=== PATIENT | female | born 1930 | race Caucasian/White ===

== ENCOUNTER 2017-10-11 15:54 | Inpatient (IN) | payer OTHER ==
[~2017-10-11] VITALS: Ht 157.5 cm; Wt 58.3 kg
[2017-10-11 16:00] VITALS: BP 125/66; PULSE 86; TEMP 36.6; BMI 23.7
[2017-10-11 16:20] VITALS: BP 125/66; PULSE 86; TEMP 36.6; O2SAT 92
[2017-10-11] MEDS ORDERED: NURSING VERBAL MED ORDER ONE (20:15)
[2017-10-11 20:36] LABS: BASO % 0.2 %; BASO ABS # 0.02 K/uL (0-0.2); EOS % 0.7 %; EOS ABS # 0.09 K/uL (0-0.5); HEMATOCRIT 35.6 % (37-47); HEMOGLOBIN 11.4 g/dL (12.0-16.0); IG# 0.06 K/uL (0.00-0.02); LYMPH % 9.9 %; LYMPH ABS # 1.26 K/uL (1.2-3.4); MEAN CELL VOLUME 89.2 fL (80-100); MEAN CORPUSCULAR HEMOGLOBIN 28.6 pg (25-34); MEAN PLATELET VOLUME 9.3 fL (7.4-10.4); MONO % 8.5 %; MONO ABS # 1.08 K/uL (0.11-0.59); NEUT % 80.2 %; NEUT ABS # 10.24 K/uL (1.4-6.5); PLATELET COUNT 250 K/uL (130-400); RED CELL DISTRIBUTION WIDTH CV 15.9 % (11.5-14.5); RED CELL DISTRIBUTION WIDTH SD 50.7 fL (36.4-46.3); WHITE BLOOD COUNT 12.75 K/uL (4.8-10.8)
[2017-10-11 20:47] LABS: PTT PATIENT 28.7 SECONDS (21.0-31.0)
[2017-10-11] MEDS ORDERED: BISACODYL 10 MG SUPP PR PRN (21:00)
[2017-10-11] MEDS ORDERED: MAGNESIUM HYDROXIDE SUSP 30 ML UDC PO PRN (21:00)
[2017-10-11] MEDS: APIXABAN 2.5 MG TAB PO SCH (21:00)
[2017-10-11] MEDS ORDERED: ACETAMINOPHEN 325 MG TAB PO PRN (21:00)
[2017-10-11 21:06] LABS: ALBUMIN 2.6 gm/dl (3.4-5.0); CALCIUM 9.1 mg/dl (8.5-10.1); CREATININE 0.73 mg/dl (0.60-1.20); PHOSPHORUS 2.8 mg/dl (2.5-4.9); POTASSIUM 4.2 mmol/L (3.5-5.1)
[2017-10-11] MEDS: CEFAZOLIN IV 1,000 MG in SYRINGE 0 ML IV SCH (22:06)
[2017-10-11] MEDS: OXYCODONE/ACETAMINOPHEN 5-325 TAB PO PRN (22:22)
[2017-10-11 22:50] VITALS: BP 166/98; PULSE 82; TEMP 36.9; O2SAT 97
[2017-10-12] MEDS: OXYCODONE/ACETAMINOPHEN 5-325 TAB PO PRN ×2 (01:08→13:50)
[2017-10-12 03:52] VITALS: BP 126/67; PULSE 95; O2SAT 98
[2017-10-12] MEDS ORDERED: NURSING VERBAL MED ORDER ONE (06:00)
[2017-10-12] MEDS ORDERED: SODIUM CHLORIDE 0.9% 1000ML 1,000 ML IV SCH (06:00)
[2017-10-12] MEDS: CEFAZOLIN IV 1,000 MG in SYRINGE 0 ML IV SCH ×3 (06:25→21:23)
[2017-10-12 07:46] VITALS: BP 162/68; PULSE 77; TEMP 36.9; O2SAT 96
--- NOTE | 2017-10-12 07:50 | History and Physical ---
History & Physical Date Oct 12, 2017. (Radha Mazariegos, BIENVENIDOC) Chief Complaint RLE pain/nonhealing wounds (Radha Mazariegos, JENNY) History of Present Illness The patient is a 87 year old female with hx of a fib, HTN, seen in office yesterday for RLE pain and nonhealing wounds that began just before per family. Pt very poor historian, unable to verbalize more than simple answers d/t pain and confusion secondary to pain medication. Per family, pt was living independently before Jazzy, but she complained to them of pain in RLE and a small wound. Pt also seemed somewhat confused, so they took her to local hospital. While there, she was eval for altered mental status and found to have 2 small intracranial aneurysms, so was sent to [facility]. No intervention was planned on the aneurysms and pt was sent to [facility] the first week of Sep. Pt has continually c/o pain in RLE and has stopped ambulating d/t pain. When given pain medication, pt becomes more confused. Per family, pt has had dressings on her leg every time they see her, but state that the wound appears significantly bigger and more discolored than the last time they saw it a few weeks ago. No fevers or vomiting, but pt's appetite has decreased. Unable to perform ROS d/t pt mental status. Pt appears to have been on Bactrim DS for about 1 week in early Sep, no abx presently on her NOV. X-ray imaging of R tib/fib demonstrated no abnormalities. JAVY attempted, but unable to calculate d/t minimal flow in RLE. (Radha Mazariegos, BIENVENIDOC) Vitals Vital Signs Past 12 Hours Date Time Temp Pulse Resp B/P (MAP) Pulse Ox O2 Delivery O2 Flow Rate FiO2 10/12/17 03:52 95 126/67 (86) 98 Room Air 10/12/17 01:15 Room Air 10/11/17 22:50 36.9 82 18 166/98 (120) 97 Room Air (Radha Mazariegos, PA-C) Allergies Coded Allergies: No Known Allergies (Unverified , 10/11/17) Surgical / Medical History Hx Cardiac Surgery: No Hx Abdominal Surgery: No Hx Cancer Surgery: No Hx Thoracic Surgery: No Hx Orthopedic: No Hx Urinary Tract Surgery: No HX Other Surgery: No Past Medical/Surgical History: Hypertension, Other (a fib) (Radha Mazariegos PA-C) Family History Unable to obtain (Radha Mazariegos PA-C) Social History Smoking Status: Never Smoker Hx Tobacco Use In Past Year?: No Hx Alcohol Use - Type & Amnt: No Hx Substance Use -Type & Amnt: No (Radha Mazariegos PA-C) Review of Systems Additional Comments: Unable to obtain. (Radha Mazariegos PA-C) Physical Exam Constitutional: General Apperance: well-nourished, well-developed, cachectic Level of Distress: mild distress, acutely ill, chronically ill Psychiatric: Mental Status: lethargic (mildly), agitated (d/t pain) Orientation: to place, to person, not oriented to time Memory: recent memory abnormal (pt refuses to answer) Head: normocephalic, atraumatic Eyes: EOM: EOMI ENMT: normal ENT inspection, hearing grossly normal Neck: supple, trachea midline Lungs: Respiratory effort: no dyspnea Auscultation: no rales/crackles, no rhonchi, decreased breath sounds Cardiovascular: Apical Impulse: not displaced Heart Auscultation: no rubs, no gallops, pertinent finding (irregular) Peripheral Pulses: Pulses: full and equal, in all extremities except if noted Bruits: none appreciated Carotid Pulse: normal on the left, normal on the right Brachial Pulses: normal on the left, normal on the right Radial Pulse: normal on the left, normal on the right Femoral Pulse: normal on the left, normal on the right Posterior Tibialis Pulse: decreased on the left, absent on the right Dorsalis Pedis Pulse: decreased on the left, absent on the right Abdomen: Bowel Sounds: normal Inspection & Palpation: soft, non-distended, no tenderness, guarding & rebound Musculoskeletal: normal strength (5/5 throughout), normal tone Extremities: Upper Right: no cyanosis, no edema, no varicosities Upper Left: no cyanosis, no edema, no varicosities Lower Right: ulcers (RLE mid-distal carreno with large, deep, necrotic ulceration extending nearly circumferentially, with periwound cellulitis present. TTP) Lower Left: no cyanosis, no edema, no varicosities Neurologic: Cranial Nerves: grossly intact (no focal deficits) (Radha Mazariegos, PA-C) Assessment and Plan ASSESSMENT and PLAN: RLE necrotic, infected wound Severe PAD/ SFAO After discussion with Dr Winters, pt admitted for further eval, pain control, abx, and surgical intervention this week. Will reeval with Dr Winters today. (Radha Mazariegos, PA-C) Patient was seen, examined, and chart reviewed. Agree with exam and treatment plan of the Vascular PA. (Haile Winters M.D.)
[2017-10-12] MEDS: MULTIVITAMIN TAB PO SCH (09:05)
[2017-10-12] MEDS: APIXABAN 2.5 MG TAB PO SCH ×2 (09:05→21:23)
[2017-10-12] MEDS: METOPROLOL SUCC 50MG EXT REL TAB PO SCH (09:06)
[2017-10-12] MEDS: SODIUM CHLORIDE 0.9% 1000ML 1,000 ML IV SCH (13:20)
--- NOTE | 2017-10-12 14:50 | Medical Consult ---
Consultation Date of Consultation: Oct 12, 2017. Attending Physician: Haile Winters M.D. Reason for Consultation: RLE wound, AF, HTN History of Present Illness 87 y/o F Hx chronic AF, HTN, PAD, dementia, cerebral aneurysms - presenting from the vascular surgeons office due to a nonhealing RLE wound. She had failed a course of outpt Bactrim a few weeks ago. The wound has been present for 2 months and over the past week appeared to worsen and became necrotic. Additionally, the pt has been increasingly confused, partially due to use of pain medications. She is generally uncooperative and cannot provide additional information. Per her daughter, she has exhibited memory loss and functional decline for the past year. Her decline accelerated with the onset of her infection 2 months prior. She has not been able to converse since that time and is regularly agitated. Past Medical/Surgical History 1) HTN 2) Chronic AF 3) PAD 4) 2 small cerebral aneurysms were evaluated at [facility] - no intervention is planned 5) Advanced dementia 6) Nonhealing RLE ulcer Family History Noncontributory due to pt age Social History Smoking Status: Never Smoker Allergies Coded Allergies: No Known Allergies (Unverified , 10/11/17) Current Inpatient Medications Current Inpatient Medications Medications (Trade) Dose Ordered Sig/Mesfin Route Start Time Stop Time Status Last Admin Dose Admin Apixaban (Eliquis Tab) 2.5 mg BID PO 10/11/17 21:00 11/10/17 20:59 10/12/17 09:05 2.5 MG Bisacodyl (Dulcolax Supp) 10 mg Q24H PRN [place] 10/11/17 21:00 11/10/17 20:59 Metoprolol Succinate (Toprol Xl Tab) 100 mg QAM PO 10/12/17 09:00 11/11/17 08:59 10/12/17 09:06 100 MG Magnesium Hydroxide (Milk Of Magnesia Susp) 30 ml Q24H PRN PO 10/11/17 21:00 11/10/17 20:59 Multivitamins (Multivitamin Tab) 1 tab QAM PO 10/12/17 09:00 11/11/17 08:59 10/12/17 09:05 1 TAB Acetaminophen (Tylenol Tab) 650 mg Q4H PRN PO 10/11/17 21:00 11/10/17 20:59 Oxycodone/ Acetaminophen (Percocet 5-325mg Tab) 1 tab Q4H PRN PO 10/11/17 21:00 10/25/17 20:59 10/12/17 13:50 1 TAB Cefazolin Sodium 1000 mg/Syringe 5 ml @ 1.667 mls/ min Q8H IV 10/11/17 22:00 10/21/17 21:59 10/12/17 13:24 1.667 MLS/MIN Sodium Chloride 1,000 ml @ 80 mls/hr [id number] IV 10/12/17 12:15 11/11/17 12:14 10/12/17 13:20 80 MLS/HR Review of Systems Cannot obtain Physical Exam Date Time Temp Pulse Resp B/P (MAP) Pulse Ox O2 Delivery O2 Flow Rate FiO2 10/12/17 08:10 Room Air 10/12/17 07:46 36.9 77 16 162/68 (99) 96 Room Air 10/12/17 03:52 95 126/67 (86) 98 Room Air 10/12/17 01:15 Room Air 10/11/17 22:50 36.9 82 18 166/98 (120) 97 Room Air 10/11/17 16:20 36.6 86 18 125/66 (85) 92 Room Air 10/11/17 16:00 36.6 86 18 125/66 Room Air General Appearance: + pertinent finding (Emotionally distressed, thin and confused, elderly female ) Head: normocephalic Eyes: normal inspection ENT: normal ENT inspection, pharynx normal Neck: supple, no JVD Respiratory/Chest: chest non-tender, lungs clear, normal breath sounds, + pertinent finding (limited exam due to poor effort) Cardiovascular: no edema, no murmur, + irregularly irregular Abdomen/GI: normal bowel sounds, non tender, soft Back: normal inspection, no CVA tenderness Extremities/Musculoskelatal: + pertinent finding (Large necrotic ulcer on R ant LE) Neurologic/Psych: hospital liaison II-XII nml as tested, no motor/sensory deficits, alert, oriented x 3 Skin: + pertinent finding (Ulcer s per extrem exam ) Laboratory Results Last 24 Hours Test 10/11/17 20:27 White Blood Count 12.75 K/uL Red Blood Count 3.99 M/uL Hemoglobin 11.4 g/dL Hematocrit 35.6 % Mean Corpuscular Volume 89.2 fL Mean Corpuscular Hemoglobin 28.6 pg Mean Corpuscular Hemoglobin Concent 32.0 g/dl Platelet Count 250 K/uL Mean Platelet Volume 9.3 fL Neutrophils (%) (Auto) 80.2 % Lymphocytes (%) (Auto) 9.9 % Monocytes (%) (Auto) 8.5 % Eosinophils (%) (Auto) 0.7 % Basophils (%) (Auto) 0.2 % Neutrophils # (Auto) 10.24 K/uL Lymphocytes # (Auto) 1.26 K/uL Monocytes # (Auto) 1.08 K/uL Eosinophils # (Auto) 0.09 K/uL Basophils # (Auto) 0.02 K/uL RDW Standard Deviation 50.7 fL RDW Coefficient of Variation 15.9 % Immature Granulocyte % (Auto) 0.5 % Immature Granulocyte # (Auto) 0.06 K/uL Prothrombin Time 10.7 SECONDS Prothromb Time International Ratio 1.0 Activated Partial Thromboplast Time 28.7 SECONDS Partial Thromboplastin Ratio 1.1 Sodium Level 140 mmol/L Potassium Level 4.2 mmol/L Chloride Level 107 mmol/L Carbon Dioxide Level 28 mmol/L Anion Gap 5.0 mmol/L Blood Urea Nitrogen 31 mg/dl Creatinine 0.73 mg/dl Est Creatinine Clear Calc Drug Dose 41.8 ml/min Estimated GFR () 85.2 Estimated GFR (Non- 73.5 BUN/Creatinine Ratio 41.7 Random Glucose 88 mg/dl Calcium Level 9.1 mg/dl Phosphorus Level 2.8 mg/dl Albumin 2.6 gm/dl Chemistry Specimen Hemolysis Assessment & Plan 87 y/o F Hx chronic AF, HTN, PAD, dementia, cerebral aneurysms - presenting from the vascular surgeons office due to a nonhealing RLE wound. She had failed a course of outpt Bactrim a few weeks ago. The wound has been present for 2 months and over the past week appeared to worsen and became necrotic. Additionally, the pt has been increasingly confused, partially due to use of pain medications. She is generally uncooperative and cannot provide additional information. Per her daughter, she has exhibited memory loss and functional decline for the past year. Her decline accelerated with the onset of her infection 2 months prior. She has not been able to converse since that time and is regularly agitated. 1) RLE necrotic, nonhealing ulcer. She may undergo debridement per vascular surgery. She was placed on Cefazolin and we will add Vanc pending additional culture results. 2) AF - she remains on Eliquis and Metoprolol. 3) HTN - cont Metoprolol 4) Agitation due to underlying advanced dementia - we will start her on a low dose of Olanzapine in addition to PRN low-dose Ativan. She may require a mental health consult prior to DC as her dementia is not currently being treated. 5) The medical service will follow daily Total time for this consult including review of meds, labs, imaging - discussion with pt's daughter - review of admission per vascular surgery - 35 min
[2017-10-12] MEDS ORDERED: VANCOMYCIN CONSULT ACTIVE PRN (15:15)
[2017-10-12 15:18] VITALS: BP 146/68; PULSE 74; TEMP 36.8; O2SAT 99
[2017-10-12] MEDS ORDERED: VANCOMYCIN INJ 1,250 MG in SODIUM CHLORIDE 0.9% 250ML 250 ML IV STA (15:28)
[2017-10-12] MEDS ORDERED: VANCOMYCIN INJ 1,000 MG in SODIUM CHLORIDE 0.9% 250ML 250 ML IV STA (15:31)
[2017-10-12 15:59] VITALS: Ht 157.5 cm; Wt 58.3 kg
[2017-10-12] MEDS: OLANZAPINE ZYDIS 5 MG ORALLY DIS. TAB PO SCH ×2 (16:23→21:23)
[2017-10-13] MEDS: LORAZEPAM IV PRN ×2 (00:04→17:26)
[2017-10-13] MEDS ORDERED: NURSING DECISION MEDICATION ORDER SCH (00:15)
[2017-10-13] MEDS: SODIUM CHLORIDE 0.9% 1000ML 1,000 ML IV SCH ×2 (02:48→16:27)
[2017-10-13] MEDS: CEFAZOLIN IV 1,000 MG in SYRINGE 0 ML IV SCH ×3 (06:02→22:07)
[2017-10-13 08:20] VITALS: BP 148/81; PULSE 83; TEMP 37.3; O2SAT 94
[2017-10-13 08:52] LABS: BASO % 0.2 %; BASO ABS # 0.02 K/uL (0-0.2); EOS % 0.4 %; EOS ABS # 0.05 K/uL (0-0.5); HEMATOCRIT 31.5 % (37-47); HEMOGLOBIN 10.1 g/dL (12.0-16.0); IG# 0.04 K/uL (0.00-0.02); LYMPH % 10.5 %; LYMPH ABS # 1.19 K/uL (1.2-3.4); MEAN CORPUSCULAR HEMOGLOBIN 28.5 pg (25-34); MEAN CORPUSCULAR HGB CONC 32.1 g/dl (32-36); MEAN PLATELET VOLUME 9.2 fL (7.4-10.4); MONO % 8.2 %; MONO ABS # 0.93 K/uL (0.11-0.59); NEUT % 80.3 %; NEUT ABS # 9.13 K/uL (1.4-6.5); PLATELET COUNT 221 K/uL (130-400); RED CELL DISTRIBUTION WIDTH CV 16.1 % (11.5-14.5); RED CELL DISTRIBUTION WIDTH SD 51.5 fL (36.4-46.3); WHITE BLOOD COUNT 11.36 K/uL (4.8-10.8)
[2017-10-13 09:19] LABS: ALBUMIN 2.3 gm/dl (3.4-5.0); CALCIUM 8.6 mg/dl (8.5-10.1); CREATININE 0.62 mg/dl (0.60-1.20); PHOSPHORUS 2.6 mg/dl (2.5-4.9); POTASSIUM 3.8 mmol/L (3.5-5.1)
[2017-10-13] MEDS: OXYCODONE/ACETAMINOPHEN 5-325 TAB PO PRN ×2 (11:23→20:09)
[2017-10-13] MEDS: APIXABAN 2.5 MG TAB PO SCH ×2 (11:24→20:11)
[2017-10-13] MEDS: MULTIVITAMIN TAB PO SCH (11:25)
[2017-10-13] MEDS: OLANZAPINE ZYDIS 5 MG ORALLY DIS. TAB PO SCH ×2 (11:25→20:10)
[2017-10-13] MEDS: METOPROLOL SUCC 50MG EXT REL TAB PO SCH (11:27)
--- NOTE | 2017-10-13 13:20 | Progress Note ---
Progress Note Date of Service: Oct 13, 2017. Subjective No changes Objective Vital Signs Vital Signs Past 12 Hours Date Time Temp Pulse Resp B/P (MAP) Pulse Ox O2 Delivery O2 Flow Rate FiO2 10/13/17 08:20 37.3 83 16 148/81 (103) 94 Room Air Exam No changes in leg Laboratory and Microbiology Results Past 24 Hours Test 10/13/17 08:23 Range/Units White Blood Count 11.36 4.8-10.8 K/uL Red Blood Count 3.54 4.2-5.4 M/uL Hemoglobin 10.1 12.0-16.0 g/dL Hematocrit 31.5 37-47 % Mean Corpuscular Volume 89.0 80-100 fL Mean Corpuscular Hemoglobin 28.5 25-34 pg Mean Corpuscular Hemoglobin Concent 32.1 32-36 g/dl Platelet Count 221 130-400 K/uL Mean Platelet Volume 9.2 7.4-10.4 fL Neutrophils (%) (Auto) 80.3 % Lymphocytes (%) (Auto) 10.5 % Monocytes (%) (Auto) 8.2 % Eosinophils (%) (Auto) 0.4 % Basophils (%) (Auto) 0.2 % Neutrophils # (Auto) 9.13 1.4-6.5 K/uL Lymphocytes # (Auto) 1.19 1.2-3.4 K/uL Monocytes # (Auto) 0.93 0.11-0.59 K/uL Eosinophils # (Auto) 0.05 0-0.5 K/uL Basophils # (Auto) 0.02 0-0.2 K/uL RDW Standard Deviation 51.5 36.4-46.3 fL RDW Coefficient of Variation 16.1 11.5-14.5 % Immature Granulocyte % (Auto) 0.4 % Immature Granulocyte # (Auto) 0.04 0.00-0.02 K/uL Sodium Level 140 136-145 mmol/L Potassium Level 3.8 3.5-5.1 mmol/L Chloride Level 109 98-107 mmol/L Carbon Dioxide Level 24 21-32 mmol/L Anion Gap 7.0 3-11 mmol/L Blood Urea Nitrogen 16 7-18 mg/dl Creatinine 0.62 0.60-1.20 mg/dl Est Creatinine Clear Calc Drug Dose 49.6 ml/min Estimated GFR () 93.3 Estimated GFR (Non- 80.5 BUN/Creatinine Ratio 25.3 10-20 Random Glucose 81 70-99 mg/dl Calcium Level 8.6 8.5-10.1 mg/dl Phosphorus Level 2.6 2.5-4.9 mg/dl Albumin 2.3 3.4-5.0 gm/dl Imp: Necrotic wound right leg Plan: Patient for debridement of wound in am tomorrow.
--- NOTE | 2017-10-13 14:50 | Anesthesiology Progress Note ---
Anesthesia Progress Note Date of Service Oct 13, 2017. Progress Notes Ms. Linn is scheduled for RLE I and D with Dr. Winters on 10/14/17. PMH ( found on record review) notable fro HTN, A fib, HLD, OA , anemia, dementia and known 2 small intracranial aneurysms but after evaluation at [facility] no interventions planned (unsure why). Patient poor historian so unable to obtain PSH. Labs notable for H/H of 10.1/31.5. Given patient's mental state felt it was best to have family members sign her consent. They had just left the patient and unable to obtain via phone. Will either consent them tomorrow if they are present with the patient or will try again via phone.
[2017-10-13 15:26] VITALS: BP 139/78; PULSE 73; TEMP 36.9; O2SAT 93
--- NOTE | 2017-10-13 21:07 | Progress Note ---
Subjective Date of Service: Oct 13, 2017. Subjective Pt evaluation today including: conversation w/ patient, physical exam, lab review, review of inpatient medication list Pain: no pain PO Intake: adequate Voiding: no voiding problems patient laying in bed comfortably cannot give me any meaningful responses with dementia labs reviewed, CBC and BMP stable Review of Systems cannot review due to dementia Medications Current Inpatient Medications Medications (Trade) Dose Ordered Sig/Mesfin Route Start Time Stop Time Status Last Admin Dose Admin Apixaban (Eliquis Tab) 2.5 mg BID PO 10/11/17 21:00 11/10/17 20:59 10/13/17 20:11 2.5 MG Bisacodyl (Dulcolax Supp) 10 mg Q24H PRN [place] 10/11/17 21:00 11/10/17 20:59 Metoprolol Succinate (Toprol Xl Tab) 100 mg QAM PO 10/12/17 09:00 11/11/17 08:59 10/13/17 11:27 100 MG Magnesium Hydroxide (Milk Of Magnesia Susp) 30 ml Q24H PRN PO 10/11/17 21:00 11/10/17 20:59 Multivitamins (Multivitamin Tab) 1 tab QAM PO 10/12/17 09:00 11/11/17 08:59 10/13/17 11:25 1 TAB Acetaminophen (Tylenol Tab) 650 mg Q4H PRN PO 10/11/17 21:00 11/10/17 20:59 10/12/17 16:24 650 MG Oxycodone/ Acetaminophen (Percocet 5-325mg Tab) 1 tab Q4H PRN PO 10/11/17 21:00 10/25/17 20:59 10/13/17 20:09 1 TAB Cefazolin Sodium 1000 mg/Syringe 5 ml @ 1.667 mls/ min Q8H IV 10/11/17 22:00 10/21/17 21:59 10/13/17 14:22 1.667 MLS/MIN Sodium Chloride 1,000 ml @ 80 mls/hr [id number] IV 10/12/17 12:15 11/11/17 12:14 10/13/17 16:27 80 MLS/HR Olanzapine (Zyprexa Zydis Od Tab) 1.25 mg BID PO 10/12/17 15:30 11/11/17 15:29 10/13/17 20:10 1.25 MG Lorazepam 0.25 mg/ Syringe 1 ml @ 0.5 mls/min Q8H PRN IV 10/12/17 15:15 11/11/17 15:14 10/13/17 17:26 0.5 MLS/MIN Objective Vital Signs Date Time Temp Pulse Resp B/P (MAP) Pulse Ox O2 Delivery O2 Flow Rate FiO2 10/13/17 15:26 36.9 73 18 139/78 (98) 93 Room Air 10/13/17 08:45 Room Air 10/13/17 08:20 37.3 83 16 148/81 (103) 94 Room Air 10/12/17 23:40 Room Air Physical Exam General Appearance: WD/WN, no apparent distress Neck: supple, no adenopathy, no JVD, trachea midline Respiratory/Chest: chest non-tender, lungs clear, normal breath sounds, no respiratory distress, no accessory muscle use Cardiovascular: no edema, no gallop, no JVD, no murmur, + irregularly irregular Abdomen: normal bowel sounds, non tender, soft, no organomegaly Extremities: normal range of motion, non-tender, normal inspection, no pedal edema, no calf tenderness, pelvis stable Neurologic/Psychiatric: peripheral vascular tech II-XII nml as tested, + motor weakness, + depressed affect, + disoriented Skin: + pertinent finding (chronic lower extremity wounds) Laboratory Results Last 24 Hours Test 10/13/17 08:23 White Blood Count 11.36 K/uL Red Blood Count 3.54 M/uL Hemoglobin 10.1 g/dL Hematocrit 31.5 % Mean Corpuscular Volume 89.0 fL Mean Corpuscular Hemoglobin 28.5 pg Mean Corpuscular Hemoglobin Concent 32.1 g/dl Platelet Count 221 K/uL Mean Platelet Volume 9.2 fL Neutrophils (%) (Auto) 80.3 % Lymphocytes (%) (Auto) 10.5 % Monocytes (%) (Auto) 8.2 % Eosinophils (%) (Auto) 0.4 % Basophils (%) (Auto) 0.2 % Neutrophils # (Auto) 9.13 K/uL Lymphocytes # (Auto) 1.19 K/uL Monocytes # (Auto) 0.93 K/uL Eosinophils # (Auto) 0.05 K/uL Basophils # (Auto) 0.02 K/uL RDW Standard Deviation 51.5 fL RDW Coefficient of Variation 16.1 % Immature Granulocyte % (Auto) 0.4 % Immature Granulocyte # (Auto) 0.04 K/uL Sodium Level 140 mmol/L Potassium Level 3.8 mmol/L Chloride Level 109 mmol/L Carbon Dioxide Level 24 mmol/L Anion Gap 7.0 mmol/L Blood Urea Nitrogen 16 mg/dl Creatinine 0.62 mg/dl Est Creatinine Clear Calc Drug Dose 49.6 ml/min Estimated GFR () 93.3 Estimated GFR (Non- 80.5 BUN/Creatinine Ratio 25.3 Random Glucose 81 mg/dl Calcium Level 8.6 mg/dl Phosphorus Level 2.6 mg/dl Albumin 2.3 gm/dl Assessment and Plan 87 y/o F Hx chronic AF, HTN, PAD, dementia, cerebral aneurysms - presenting from the vascular surgeons office due to a nonhealing RLE wound. She had failed a course of outpt Bactrim a few weeks ago. The wound has been present for 2 months and over the past week appeared to worsen and became necrotic. Additionally, the pt has been increasingly confused, partially due to use of pain medications. She is generally uncooperative and cannot provide additional information. Per her daughter, she has exhibited memory loss and functional decline for the past year. Her decline accelerated with the onset of her infection 2 months prior. She has not been able to converse since that time and is regularly agitated. 1) RLE necrotic, nonhealing ulcer. continue antibiotics, may require debridement, up to vascular surgery 2) AF - she remains on Eliquis and Metoprolol. heart rate controlled 3) HTN - cont Metoprolol 4) Agitation due to underlying advanced dementia - we will start her on a low dose of Olanzapine in addition to PRN low-dose Ativan CBC and BMP stable, will follow up tomorrow
[2017-10-14] VITALS (9 sets, daily range): BP systolic 133–176; BP diastolic 65–79; PULSE 67–100; TEMP 36.1–36.8; O2SAT 94–100
[2017-10-14] MEDS: SODIUM CHLORIDE 0.9% 1000ML 1,000 ML IV SCH ×2 (03:38→16:30)
[2017-10-14] MEDS: CEFAZOLIN IV 1,000 MG in SYRINGE 0 ML IV SCH ×3 (05:36→22:30)
[2017-10-14] MEDS: OXYCODONE/ACETAMINOPHEN 5-325 TAB PO PRN ×3 (05:37→15:05)
[2017-10-14] MEDS ORDERED: LIDOCAINE HCL 1% 20 ML VIAL ONE (06:56)
[2017-10-14] MEDS ORDERED: BUPIVACAINE/EPINEPHRINE 0.5% MPF 1:200,000 30 ML VIAL ONE (06:56)
[2017-10-14] MEDS ORDERED: FENTANYL CITRATE INJ 50 MCG/1 ML 2 ML VIAL ONE ×2 (07:07→09:05)
--- NOTE | 2017-10-14 08:04 | Progress Note ---
Progress Note Date of Service Oct 14, 2017. Progress Note Patient for debridement of right leg. I have discussed the risks options and benefits of the procedure with the family. The family understands the risks options and benefits and agrees to the procedure. I have examined the patient, reviewed the History & Physical and in the interval since the performance of the History & Physical I have noted the following changes of clinical significance: No changes noted
[2017-10-14] MEDS ORDERED: LIDOCAINE HCL 2% 2 ML VIAL (20MG/ML) ONE (08:37)
[2017-10-14] MEDS ORDERED: PROPOFOL IV EMULSION 10 MG/ML 20 ML VIAL IV ONE (08:37)
[2017-10-14] MEDS ORDERED: ONDANSETRON INJ 2 MG/ML 2 ML VIAL ONE (08:37)
[2017-10-14] MEDS ORDERED: THROMBIN 5000 UNITS KIT ONE (08:39)
[2017-10-14] MEDS ORDERED: THROMBIN FOR SOLN 20000 UNIT KIT ONE (08:40)
[2017-10-14] MEDS: MULTIVITAMIN TAB PO SCH ×2 (09:00→14:11)
[2017-10-14] MEDS: METOPROLOL SUCC 50MG EXT REL TAB PO SCH ×2 (09:00→14:12)
[2017-10-14] MEDS: APIXABAN 2.5 MG TAB PO SCH ×3 (09:00→19:58)
[2017-10-14] MEDS: OLANZAPINE ZYDIS 5 MG ORALLY DIS. TAB PO SCH ×2 (09:00→19:59)
--- NOTE | 2017-10-14 09:15 | [facility] Post Operative Brief Note ---
Immediate Operative Summary Operative Date Oct 14, 2017. Pre-Operative Diagnosis Right Lower Extremity Necrotic, Infected Wound Post-Operative Diagnosis Right Lower Extremity Necrotic, Infected Wound Procedure(s) Performed Right Leg Wound Debridement, Application of silver wound vac (24X12) Surgeon Dr Winters Orthopedic Rn Surgeon(s) Radha Turner PA-C Estimated Blood Loss 80cc Findings Consistent with Post-Op Diagnosis Specimens cultures Drains None Anesthesia Type General Complication(s) none Disposition Disposition: Recovery Room / PACU
[2017-10-14] MEDS ORDERED: EpHEDrine SULFATE INJ 50 MG/ML AMP IV PRN (09:30)
[2017-10-14] MEDS ORDERED: LABETALOL HCL IV 5 MG/ML 20ML IV PRN (09:30)
[2017-10-14] MEDS ORDERED: NALOXONE HCL 0.4 MG/1 ML VIAL/CARP IV PRN (09:30)
[2017-10-14] MEDS ORDERED: FENTANYL CITRATE INJ 50 MCG/1 ML 2 ML VIAL IV PRN (09:30)
[2017-10-14] MEDS ORDERED: ONDANSETRON INJ 2 MG/ML 2 ML VIAL IV PRN (09:30)
[2017-10-14] MEDS ORDERED: ATROPINE SULFATE 0.1 MG/ML 5ML SYR IV PRN (09:30)
[2017-10-14 10:08] LABS: BASO % 0.2 %; BASO ABS # 0.02 K/uL (0-0.2); EOS % 1.3 %; EOS ABS # 0.16 K/uL (0-0.5); HEMATOCRIT 32.9 % (37-47); HEMOGLOBIN 10.5 g/dL (12.0-16.0); IG# 0.04 K/uL (0.00-0.02); LYMPH % 9.6 %; LYMPH ABS # 1.18 K/uL (1.2-3.4); MEAN CELL VOLUME 90.4 fL (80-100); MEAN CORPUSCULAR HEMOGLOBIN 28.8 pg (25-34); MEAN CORPUSCULAR HGB CONC 31.9 g/dl (32-36); MEAN PLATELET VOLUME 9.3 fL (7.4-10.4); MONO % 10.4 %; MONO ABS # 1.28 K/uL (0.11-0.59); NEUT % 78.2 %; NEUT ABS # 9.57 K/uL (1.4-6.5); PLATELET COUNT 235 K/uL (130-400); RED CELL DISTRIBUTION WIDTH CV 16.2 % (11.5-14.5); RED CELL DISTRIBUTION WIDTH SD 52.8 fL (36.4-46.3); WHITE BLOOD COUNT 12.25 K/uL (4.8-10.8)
--- NOTE | 2017-10-14 10:48 | Anesthesiology Progress Note ---
Anesthesia Post Op Note Date & Time Oct 14, 2017 at 10:48 Vital Signs Pain Intensity: 0 Vital Signs Past 12 Hours Date Time Temp Pulse Resp B/P (MAP) Pulse Ox O2 Delivery O2 Flow Rate FiO2 10/14/17 10:25 36.2 76 20 144/69 97 Nasal Cannula 4 10/14/17 10:15 76 19 184/97 98 Oxymask 10 10/14/17 10:05 65 18 172/86 97 Oxymask 10 10/14/17 09:55 76 14 171/103 97 Oxymask 10 10/14/17 09:48 36.3 76 14 161/103 100 Oxymask 10 10/14/17 00:23 36.8 84 18 94 Room Air 10/13/17 23:30 Room Air Notes Mental Status: alert / awake / arousable, participated in evaluation Pt Amnestic to Procedure: Yes Nausea / Vomiting: adequately controlled Pain: adequately controlled Airway Patency, RR, SpO2: stable & adequate BP & HR: stable & adequate Hydration State: stable & adequate Anesthetic Complications: no major complications apparent
--- NOTE | 2017-10-14 12:02 | [facility] Operative Report ---
Operative Report Operative Date Oct 14, 2017. Pre-Operative Diagnosis Right Lower Extremity Necrotic, Infected Wound Post-Operative Diagnosis Right Lower Extremity Necrotic, Infected Wound Procedure(s) Performed Right Leg Wound Debridement, Application of silver wound vac (24X12) Surgeon Dr Winters [employer]ry [employer] Round Attendant Surgeon(s) Radha Turner PA-C Estimated Blood Loss 80cc Findings necrotic subcutaneous tissue and skin Specimens #1 Right leg wound for routine cultrue and sentitvity and anaerobic and aerobic Anesthesia general Complication(s) None Disposition Recovery Room / PACU Indications This is an 87-year-old female who developed on necrotic area on her right leg. It has gotten progressively worse and is in need of debridement. The family understands the risks options and benefits and agrees to go ahead with the procedure. Description of Procedure The patient was taken to the operating room and placed in the supine position. After general anesthesia was accomplished the right leg was prepped and draped in a sterile manner. Using sharp and blunt dissection the necrotic skin eschar and subcutaneous tissue was removed from the right leg. This encompassed an area of 24 x 12 cm in size. The fascia beneath was viable and bleeding was seen. Bleeding was then controlled. Once adequate hemostasis was noted the wound was covered with a silver impregnated wound VAC. The patient left the operation room in satisfactory condition and tolerated the procedure well. All needle and sponge counts were correct at the end of the procedure. Radha Mazariegos Pac assisted due to lack of resident availability and was necessary for prepping, draping, retraction, wound closure deep layers, subcutaneous tissue, and skin closure and was necessary for assisting with the case. I attest to the content of the Intraoperative Record and any orders documented therein. Any exceptions are noted below.
--- NOTE | 2017-10-14 12:32 | Progress Note ---
Progress Note Date of Service Oct 14, 2017. Progress Note I assisted Dr Winters with Sho Kongdwell's Right Leg Wound Debridement, Application of silver wound vac (24X12) on 10/14/17, d/t lack of resident availability.
--- NOTE | 2017-10-14 19:44 | Progress Note ---
Subjective Date of Service: Oct 14, 2017. Subjective Pt evaluation today including: conversation w/ patient, physical exam, review of inpatient medication list Pain: no pain PO Intake: NPO for procedure this AM Voiding: no voiding problems to OR today for debridement, wound vac placed tolerated well, no complications Hb stable at 10.5 Review of Systems cannot review due to dementia Medications Current Inpatient Medications Medications (Trade) Dose Ordered Sig/Mesfin Route Start Time Stop Time Status Last Admin Dose Admin Apixaban (Eliquis Tab) 2.5 mg BID PO 10/11/17 21:00 11/10/17 20:59 10/13/17 20:11 2.5 MG Bisacodyl (Dulcolax Supp) 10 mg Q24H PRN [place] 10/11/17 21:00 11/10/17 20:59 Metoprolol Succinate (Toprol Xl Tab) 100 mg QAM PO 10/12/17 09:00 11/11/17 08:59 10/13/17 11:27 100 MG Magnesium Hydroxide (Milk Of Magnesia Susp) 30 ml Q24H PRN PO 10/11/17 21:00 11/10/17 20:59 Multivitamins (Multivitamin Tab) 1 tab QAM PO 10/12/17 09:00 11/11/17 08:59 10/13/17 11:25 1 TAB Acetaminophen (Tylenol Tab) 650 mg Q4H PRN PO 10/11/17 21:00 11/10/17 20:59 10/12/17 16:24 650 MG Oxycodone/ Acetaminophen (Percocet 5-325mg Tab) 1 tab Q4H PRN PO 10/11/17 21:00 10/25/17 20:59 10/14/17 15:05 1 TAB Cefazolin Sodium 1000 mg/Syringe 5 ml @ 1.667 mls/ min Q8H IV 10/11/17 22:00 10/21/17 21:59 10/14/17 17:01 1.667 MLS/MIN Sodium Chloride 1,000 ml @ 80 mls/hr [id number] IV 10/12/17 12:15 11/11/17 12:14 10/14/17 03:38 80 MLS/HR Olanzapine (Zyprexa Zydis Od Tab) 1.25 mg BID PO 10/12/17 15:30 11/11/17 15:29 10/13/17 20:10 1.25 MG Lorazepam 0.25 mg/ Syringe 1 ml @ 0.5 mls/min Q8H PRN IV 10/12/17 15:15 11/11/17 15:14 10/13/17 17:26 0.5 MLS/MIN Objective Vital Signs Date Time Temp Pulse Resp B/P (MAP) Pulse Ox O2 Delivery O2 Flow Rate FiO2 10/14/17 14:56 36.6 72 16 151/79 (103) 99 Room Air 10/14/17 13:33 36.6 67 16 176/74 (108) 98 Nasal Cannula 3.0 10/14/17 12:30 36.6 71 16 145/70 (95) 100 Nasal Cannula 4.0 10/14/17 12:00 36.6 73 16 133/65 (87) 100 Nasal Cannula 3.0 10/14/17 11:30 36.6 76 16 145/73 (97) 96 Nasal Cannula 3.0 10/14/17 11:00 96 Nasal Cannula 2.0 10/14/17 11:00 Nasal Cannula 2.0 10/14/17 10:45 68 19 153/76 100 Nasal Cannula 4 10/14/17 10:35 76 18 153/76 100 Nasal Cannula 4 10/14/17 10:25 36.2 76 20 144/69 97 Nasal Cannula 4 10/14/17 10:15 76 19 184/97 98 Oxymask 10 10/14/17 10:05 65 18 172/86 97 Oxymask 10 10/14/17 09:55 76 14 171/103 97 Oxymask 10 10/14/17 09:48 36.3 76 14 161/103 100 Oxymask 10 10/14/17 00:23 36.8 84 18 94 Room Air 10/13/17 23:30 Room Air Physical Exam General Appearance: WD/WN, no apparent distress Eyes: normal inspection, EOMI, sclerae normal Neck: supple, no adenopathy, no JVD, trachea midline Respiratory/Chest: chest non-tender, lungs clear, normal breath sounds, no respiratory distress, no accessory muscle use Cardiovascular: regular rate, rhythm, no edema, no gallop, no JVD, no murmur Abdomen: normal bowel sounds, non tender, soft, no organomegaly Extremities: normal range of motion, non-tender, no pedal edema, no calf tenderness, pelvis stable, + slow capillary refill Neurologic/Psychiatric: + motor weakness, + depressed affect, + disoriented Skin: + pertinent finding (right lower extremity wound with wound vac after surgery) Laboratory Results Last 24 Hours Test 10/14/17 09:56 White Blood Count 12.25 K/uL Red Blood Count 3.64 M/uL Hemoglobin 10.5 g/dL Hematocrit 32.9 % Mean Corpuscular Volume 90.4 fL Mean Corpuscular Hemoglobin 28.8 pg Mean Corpuscular Hemoglobin Concent 31.9 g/dl Platelet Count 235 K/uL Mean Platelet Volume 9.3 fL Neutrophils (%) (Auto) 78.2 % Lymphocytes (%) (Auto) 9.6 % Monocytes (%) (Auto) 10.4 % Eosinophils (%) (Auto) 1.3 % Basophils (%) (Auto) 0.2 % Neutrophils # (Auto) 9.57 K/uL Lymphocytes # (Auto) 1.18 K/uL Monocytes # (Auto) 1.28 K/uL Eosinophils # (Auto) 0.16 K/uL Basophils # (Auto) 0.02 K/uL RDW Standard Deviation 52.8 fL RDW Coefficient of Variation 16.2 % Immature Granulocyte % (Auto) 0.3 % Immature Granulocyte # (Auto) 0.04 K/uL Assessment and Plan 87 y/o F Hx chronic AF, HTN, PAD, dementia, cerebral aneurysms - presenting from the vascular surgeons office due to a nonhealing RLE wound. She had failed a course of outpt Bactrim a few weeks ago. The wound has been present for 2 months and over the past week appeared to worsen and became necrotic. Additionally, the pt has been increasingly confused, partially due to use of pain medications. She is generally uncooperative and cannot provide additional information. Per her daughter, she has exhibited memory loss and functional decline for the past year. Her decline accelerated with the onset of her infection 2 months prior. She has not been able to converse since that time and is regularly agitated. 1) RLE necrotic, nonhealing ulcer. continue antibiotics right leg wound debridement with wound vac placed no complications management per vascular surgery 2) AF - she remains on Eliquis and Metoprolol. heart rate controlled 3) HTN - cont Metoprolol CBC and BMP stable, will follow up tomorrow
[2017-10-15] MEDS: SODIUM CHLORIDE 0.9% 1000ML 1,000 ML IV SCH ×2 (04:27→23:59)
[2017-10-15] MEDS: OXYCODONE/ACETAMINOPHEN 5-325 TAB PO PRN ×4 (04:33→21:32)
[2017-10-15 04:41] VITALS: BP 156/80; PULSE 78; O2SAT 91
[2017-10-15] MEDS: CEFAZOLIN IV 1,000 MG in SYRINGE 0 ML IV SCH ×3 (05:56→22:15)
[2017-10-15 07:26] VITALS: BP 157/77; PULSE 87; TEMP 37.1; O2SAT 96
[2017-10-15 07:42] LABS: BASO % 0.1 %; BASO ABS # 0.01 K/uL (0-0.2); EOS % 0.6 %; EOS ABS # 0.06 K/uL (0-0.5); HEMATOCRIT 29.4 % (37-47); HEMOGLOBIN 9.4 g/dL (12.0-16.0); IG# 0.04 K/uL (0.00-0.02); LYMPH % 9.6 %; LYMPH ABS # 0.96 K/uL (1.2-3.4); MEAN CELL VOLUME 89.4 fL (80-100); MEAN CORPUSCULAR HEMOGLOBIN 28.6 pg (25-34); MEAN PLATELET VOLUME 9.4 fL (7.4-10.4); MONO % 9.2 %; MONO ABS # 0.92 K/uL (0.11-0.59); NEUT % 80.1 %; NEUT ABS # 7.99 K/uL (1.4-6.5); PLATELET COUNT 202 K/uL (130-400); RED CELL DISTRIBUTION WIDTH CV 16.2 % (11.5-14.5); RED CELL DISTRIBUTION WIDTH SD 51.4 fL (36.4-46.3); WHITE BLOOD COUNT 9.98 K/uL (4.8-10.8)
[2017-10-15 08:07] LABS: CALCIUM 8.4 mg/dl (8.5-10.1); CREATININE 0.47 mg/dl (0.60-1.20); POTASSIUM 3.6 mmol/L (3.5-5.1)
[2017-10-15] MEDS: METOPROLOL SUCC 50MG EXT REL TAB PO SCH (09:26)
[2017-10-15] MEDS: OLANZAPINE ZYDIS 5 MG ORALLY DIS. TAB PO SCH ×2 (09:26→20:30)
[2017-10-15] MEDS: MULTIVITAMIN TAB PO SCH (09:26)
[2017-10-15] MEDS: APIXABAN 2.5 MG TAB PO SCH ×2 (09:27→20:30)
[2017-10-15 15:08] VITALS: BP 150/76; PULSE 67; TEMP 37; O2SAT 92
--- NOTE | 2017-10-15 15:11 | Progress Note ---
Subjective Date of Service: Oct 15, 2017. Subjective Pt evaluation today including: conversation w/ patient, physical exam, lab review, review of inpatient medication list Pain: pain in right leg PO Intake: adequate, per aide Voiding: montoya catheter in place patient will not answer questions due to dementia aide says she is in pain often eating all her meals though, drinking well Review of Systems cannot review due to dementia Medications Current Inpatient Medications Medications (Trade) Dose Ordered Sig/Mesfin Route Start Time Stop Time Status Last Admin Dose Admin Apixaban (Eliquis Tab) 2.5 mg BID PO 10/11/17 21:00 11/10/17 20:59 10/15/17 09:27 2.5 MG Bisacodyl (Dulcolax Supp) 10 mg Q24H PRN [place] 10/11/17 21:00 11/10/17 20:59 Metoprolol Succinate (Toprol Xl Tab) 100 mg QAM PO 10/12/17 09:00 11/11/17 08:59 10/15/17 09:26 100 MG Magnesium Hydroxide (Milk Of Magnesia Susp) 30 ml Q24H PRN PO 10/11/17 21:00 11/10/17 20:59 Multivitamins (Multivitamin Tab) 1 tab QAM PO 10/12/17 09:00 11/11/17 08:59 10/15/17 09:26 1 TAB Acetaminophen (Tylenol Tab) 650 mg Q4H PRN PO 10/11/17 21:00 11/10/17 20:59 10/12/17 16:24 650 MG Oxycodone/ Acetaminophen (Percocet 5-325mg Tab) 1 tab Q4H PRN PO 10/11/17 21:00 10/25/17 20:59 10/15/17 09:56 1 TAB Cefazolin Sodium 1000 mg/Syringe 5 ml @ 1.667 mls/ min Q8H IV 10/11/17 22:00 10/21/17 21:59 10/15/17 05:56 1.667 MLS/MIN Olanzapine (Zyprexa Zydis Od Tab) 1.25 mg BID PO 10/12/17 15:30 11/11/17 15:29 10/15/17 09:26 1.25 MG Lorazepam 0.25 mg/ Syringe 1 ml @ 0.5 mls/min Q8H PRN IV 10/12/17 15:15 11/11/17 15:14 10/13/17 17:26 0.5 MLS/MIN Objective Vital Signs Date Time Temp Pulse Resp B/P (MAP) Pulse Ox O2 Delivery O2 Flow Rate FiO2 10/15/17 09:56 Room Air 10/15/17 07:26 37.1 87 16 157/77 (103) 96 Room Air 10/15/17 04:41 78 15 156/80 (105) 91 Room Air 10/14/17 23:40 Room Air 10/14/17 22:19 95 Room Air 10/14/17 22:13 36.1 100 18 160/76 (104) 95 Room Air Physical Exam General Appearance: no apparent distress, + thin Eyes: normal inspection, EOMI, sclerae normal ENT: normal ENT inspection, hearing grossly normal, pharynx normal Neck: supple, no adenopathy, no JVD, trachea midline Respiratory/Chest: chest non-tender, lungs clear, normal breath sounds, no respiratory distress, no accessory muscle use Cardiovascular: regular rate, rhythm, no edema, no gallop, no JVD, no murmur Abdomen: normal bowel sounds, non tender, soft, no organomegaly Extremities: normal range of motion, non-tender, no pedal edema, pelvis stable , + slow capillary refill, + pertinent finding (right leg with wound vac) 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, + motor weakness, + depressed affect, + disoriented Laboratory Results Last 24 Hours Test 10/15/17 07:19 White Blood Count 9.98 K/uL Red Blood Count 3.29 M/uL Hemoglobin 9.4 g/dL Hematocrit 29.4 % Mean Corpuscular Volume 89.4 fL Mean Corpuscular Hemoglobin 28.6 pg Mean Corpuscular Hemoglobin Concent 32.0 g/dl Platelet Count 202 K/uL Mean Platelet Volume 9.4 fL Neutrophils (%) (Auto) 80.1 % Lymphocytes (%) (Auto) 9.6 % Monocytes (%) (Auto) 9.2 % Eosinophils (%) (Auto) 0.6 % Basophils (%) (Auto) 0.1 % Neutrophils # (Auto) 7.99 K/uL Lymphocytes # (Auto) 0.96 K/uL Monocytes # (Auto) 0.92 K/uL Eosinophils # (Auto) 0.06 K/uL Basophils # (Auto) 0.01 K/uL RDW Standard Deviation 51.4 fL RDW Coefficient of Variation 16.2 % Immature Granulocyte % (Auto) 0.4 % Immature Granulocyte # (Auto) 0.04 K/uL Sodium Level 141 mmol/L Potassium Level 3.6 mmol/L Chloride Level 110 mmol/L Carbon Dioxide Level 25 mmol/L Anion Gap 6.0 mmol/L Blood Urea Nitrogen 12 mg/dl Creatinine 0.47 mg/dl Est Creatinine Clear Calc Drug Dose 65.5 ml/min Estimated GFR () 102.2 Estimated GFR (Non- 88.2 BUN/Creatinine Ratio 25.4 Random Glucose 102 mg/dl Calcium Level 8.4 mg/dl Assessment and Plan 87 y/o F Hx chronic AF, HTN, PAD, dementia, cerebral aneurysms - presenting from the vascular surgeons office due to a nonhealing RLE wound. She had failed a course of outpt Bactrim a few weeks ago. The wound has been present for 2 months and over the past week appeared to worsen and became necrotic. Additionally, the pt has been increasingly confused, partially due to use of pain medications. She is generally uncooperative and cannot provide additional information. Per her daughter, she has exhibited memory loss and functional decline for the past year. Her decline accelerated with the onset of her infection 2 months prior. She has not been able to converse since that time and is regularly agitated. 1) RLE necrotic, nonhealing ulcer. continue antibiotics right leg wound debridement with wound vac placed on 10/14 no complications pain control per vascular surgery will stop IV fluids as she is eating and drinking well 2) AF - she remains on Eliquis and Metoprolol. heart rate controlled 3) HTN - cont Metoprolol Hb 9.4, Cr is 0.48
[2017-10-15 15:20] VITALS: O2SAT 92
[2017-10-15 23:04] VITALS: BP 129/72; PULSE 73; TEMP 37.3
[2017-10-16] MEDS: CEFAZOLIN IV 1,000 MG in SYRINGE 0 ML IV SCH ×3 (05:33→21:42)
[2017-10-16 07:46] VITALS: BP 145/65; PULSE 78; TEMP 37.4; O2SAT 92
[2017-10-16] MEDS: OLANZAPINE ZYDIS 5 MG ORALLY DIS. TAB PO SCH ×2 (08:42→20:30)
[2017-10-16] MEDS: APIXABAN 2.5 MG TAB PO SCH ×2 (08:44→20:30)
[2017-10-16] MEDS: OXYCODONE/ACETAMINOPHEN 5-325 TAB PO PRN ×2 (08:44→13:39)
[2017-10-16] MEDS: MULTIVITAMIN TAB PO SCH (08:45)
[2017-10-16] MEDS: METOPROLOL SUCC 50MG EXT REL TAB PO SCH (08:45)
[2017-10-16] MEDS: SODIUM CHLORIDE 0.9% 1000ML 1,000 ML IV SCH ×2 (12:47→23:36)
--- NOTE | 2017-10-16 14:56 | Progress Note ---
Subjective Date of Service: Oct 16, 2017. Subjective Pt evaluation today including: conversation w/ patient, physical exam, review of inpatient medication list Pain: right leg pain PO Intake: poor intake Voiding: montoya catheter in place patient angry today, spitting at nurse, refusing to eat, refusing to take medications vitals stable no labs drawn today Review of Systems cannot review due to dementia Medications Current Inpatient Medications Medications (Trade) Dose Ordered Sig/Mesfin Route Start Time Stop Time Status Last Admin Dose Admin Apixaban (Eliquis Tab) 2.5 mg BID PO 10/11/17 21:00 11/10/17 20:59 10/16/17 08:44 2.5 MG Bisacodyl (Dulcolax Supp) 10 mg Q24H PRN [place] 10/11/17 21:00 11/10/17 20:59 Metoprolol Succinate (Toprol Xl Tab) 100 mg QAM PO 10/12/17 09:00 11/11/17 08:59 10/16/17 08:45 100 MG Magnesium Hydroxide (Milk Of Magnesia Susp) 30 ml Q24H PRN PO 10/11/17 21:00 11/10/17 20:59 Multivitamins (Multivitamin Tab) 1 tab QAM PO 10/12/17 09:00 11/11/17 08:59 10/16/17 08:45 1 TAB Acetaminophen (Tylenol Tab) 650 mg Q4H PRN PO 10/11/17 21:00 11/10/17 20:59 10/12/17 16:24 650 MG Oxycodone/ Acetaminophen (Percocet 5-325mg Tab) 1 tab Q4H PRN PO 10/11/17 21:00 10/25/17 20:59 10/16/17 13:39 1 TAB Cefazolin Sodium 1000 mg/Syringe 5 ml @ 1.667 mls/ min Q8H IV 10/11/17 22:00 10/21/17 21:59 10/16/17 14:17 1.667 MLS/MIN Olanzapine (Zyprexa Zydis Od Tab) 1.25 mg BID PO 10/12/17 15:30 11/11/17 15:29 10/16/17 08:42 1.25 MG Lorazepam 0.25 mg/ Syringe 1 ml @ 0.5 mls/min Q8H PRN IV 10/12/17 15:15 11/11/17 15:14 10/13/17 17:26 0.5 MLS/MIN Sodium Chloride 1,000 ml @ 80 mls/hr [id number] IV 10/15/17 23:15 11/14/17 23:14 10/16/17 12:47 80 MLS/HR Objective Vital Signs Date Time Temp Pulse Resp B/P (MAP) Pulse Ox O2 Delivery O2 Flow Rate FiO2 10/16/17 07:46 37.4 78 17 145/65 (91) 92 Room Air 10/16/17 00:05 Room Air 10/15/17 23:04 37.3 73 16 129/72 (91) Room Air 93.0 10/15/17 15:20 92 Room Air 10/15/17 15:08 37.0 67 16 150/76 (100) 92 Room Air Physical Exam General Appearance: no apparent distress, + thin Eyes: normal inspection, EOMI, sclerae normal ENT: normal ENT inspection, hearing grossly normal, pharynx normal Respiratory/Chest: chest non-tender, lungs clear, normal breath sounds, no respiratory distress, no accessory muscle use Cardiovascular: regular rate, rhythm, no edema, no gallop, no JVD, no murmur Abdomen: normal bowel sounds, non tender, soft, no organomegaly Extremities: normal range of motion, no pedal edema, no calf tenderness, pelvis stable, + slow capillary refill, + pertinent finding (right lower leg very tender with wound vac in place) Neurologic/Psychiatric: mandrel cleaner II-XII nml as tested, + disoriented, + pertinent finding (agitated, ) Skin: + pertinent finding (chronic lower extremity wounds from poor perfusion, right lower leg with wound vac after debridement) Assessment and Plan 87 y/o F Hx chronic AF, HTN, PAD, dementia, cerebral aneurysms - presenting from the vascular surgeons office due to a nonhealing RLE wound. She had failed a course of outpt Bactrim a few weeks ago. The wound has been present for 2 months and over the past week appeared to worsen and became necrotic. Additionally, the pt has been increasingly confused, partially due to use of pain medications. She is generally uncooperative and cannot provide additional information. Per her daughter, she has exhibited memory loss and functional decline for the past year. Her decline accelerated with the onset of her infection 2 months prior. She has not been able to converse since that time and is regularly agitated. 1) RLE necrotic, nonhealing ulcer. wound culture growing staph aureus continue Cefazolin for now since she is afebrile, WBC now normal right leg wound debridement with wound vac placed on 10/14 pain control per vascular surgery need to resume IV fluids since her appetite is worse 2) AF - she remains on Eliquis and Metoprolol. heart rate controlled 3) HTN - cont Metoprolol check labs tomorrow
[2017-10-16 15:07] VITALS: BP 145/66; PULSE 92; TEMP 37.2; O2SAT 95
[2017-10-16 23:02] VITALS: BP 156/82; PULSE 92; TEMP 36.7; O2SAT 96
[2017-10-17] VITALS (7 sets, daily range): BP systolic 132–159; BP diastolic 47–79; PULSE 80–96; TEMP 36.5–37.3; O2SAT 91–100
[2017-10-17] MEDS: CEFAZOLIN IV 1,000 MG in SYRINGE 0 ML IV SCH ×3 (05:21→21:55)
[2017-10-17] MEDS ORDERED: EpHEDrine SULFATE INJ 50 MG/ML AMP IV PRN (07:00)
[2017-10-17] MEDS ORDERED: HYDROmorphone INJ 1 MG/ML SYR IV PRN (07:00)
[2017-10-17] MEDS ORDERED: ATROPINE SULFATE 0.1 MG/ML 5ML SYR IV PRN (07:00)
[2017-10-17] MEDS ORDERED: FENTANYL CITRATE INJ 50 MCG/1 ML 2 ML VIAL IV PRN (07:00)
[2017-10-17] MEDS ORDERED: ONDANSETRON INJ 2 MG/ML 2 ML VIAL IV PRN (07:00)
[2017-10-17] MEDS ORDERED: MIDAZOLAM HCL 1 MG/ML 2ML VIAL ONE (07:14)
[2017-10-17] MEDS ORDERED: FENTANYL CITRATE INJ 50 MCG/1 ML 2 ML VIAL ONE (07:14)
--- NOTE | 2017-10-17 07:35 | Anesthesiology Progress Note ---
Anesthesia Post Op Note Date & Time Oct 17, 2017 at 07:34 Vital Signs Pain Intensity: 0.0 Vital Signs Past 12 Hours Date Time Temp Pulse Resp B/P (MAP) Pulse Ox O2 Delivery O2 Flow Rate FiO2 10/17/17 07:12 36.6 89 15 155/79 (104) 96 Room Air 10/16/17 23:02 36.7 92 22 156/82 (106) 96 Room Air Notes Mental Status: see Notes Anesthetic Complications: pt sleepy and groggy. Pt will mumble to verbal stimulus. Asked bedside RN if she had any information and she stated that this was patients baseline.
--- NOTE | 2017-10-17 07:55 | Progress Note ---
Progress Note Date of Service Oct 17, 2017. Progress Note Patient for wound vac change and possible debridement if needed. I have discussed the risks options and benefits of the procedure with the family. The family understands the risks options and benefits and agrees to the procedure.
[2017-10-17] MEDS ORDERED: ONDANSETRON INJ 2 MG/ML 2 ML VIAL ONE (08:03)
[2017-10-17] MEDS ORDERED: LIDOCAINE HCL 2% 2 ML VIAL (20MG/ML) ONE (08:03)
[2017-10-17] MEDS ORDERED: PROPOFOL IV EMULSION 10 MG/ML 20 ML VIAL IV ONE (08:03)
[2017-10-17] MEDS: METOPROLOL SUCC 50MG EXT REL TAB PO SCH (09:00)
--- NOTE | 2017-10-17 09:30 | [facility] Post Operative Brief Note ---
Immediate Operative Summary Operative Date Oct 17, 2017. Pre-Operative Diagnosis Open Wound Right Leg Post-Operative Diagnosis Open Wound Right Leg Procedure(s) Performed Dressing change with 24x12 application of wound vac on right lower leg Surgeon Dr Winters Animal Science Professor Surgeon(s) Radha Mazariegos PA-C Estimated Blood Loss 0cc Findings Consistent with Post-Op Diagnosis Specimens None as per surgeon Drains None Anesthesia Type General Complication(s) none Disposition Disposition: Recovery Room / PACU
--- NOTE | 2017-10-17 10:00 | [facility] Operative Report ---
Operative Report Operative Date Oct 17, 2017. Pre-Operative Diagnosis Open Wound Right Leg Post-Operative Diagnosis Open Wound Right Leg Procedure(s) Performed Dressing change with 24x12 application of wound vac on right lower leg Surgeon Dr Winters Photo Booth Operator Surgeon(s) Radha Mazariegos PA-C Estimated Blood Loss 0cc Findings good tissue seen Specimens None as per surgeon Anesthesia general Complication(s) None Disposition Recovery Room / PACU Indications This is an 87-year-old female with a large wound of her right leg. It was debrided and covered with a wound VAC last week. She is taken to the operating room today for dressing change under anesthesia. The family understands the risks options and benefits and agrees to go ahead with this procedure. Description of Procedure The patient was taken to the operating room placed in the supine position. After general anesthesia was accomplished the wound VAC was removed to the right leg. There is granulation tissue starting to form at the base of the wounds. The wound was irrigated with saline solution. The skin was prepped. Vaseline gauze was placed over the open areas. The wound VAC was then placed over the third wounds of the right leg. Good seal was noted. The wound size remained unchanged at [id number] in size. Patient left the operating room in good condition tolerated the procedure well. Radha Mazariegos Pac assisted due to lack of resident availability and was necessary for prepping, draping, retraction, wound closure deep layers, subcutaneous tissue, and skin closure and was necessary for assisting with the case. I attest to the content of the Intraoperative Record and any orders documented therein. Any exceptions are noted below.
--- NOTE | 2017-10-17 10:26 | Anesthesiology Progress Note ---
Anesthesia Post Op Note Date & Time Oct 17, 2017 at 10:26 Vital Signs Pain Intensity: 0.0 Vital Signs Past 12 Hours Date Time Temp Pulse Resp B/P (MAP) Pulse Ox O2 Delivery O2 Flow Rate FiO2 10/17/17 09:52 98 17 149/136 100 10 10/17/17 09:50 36.5 92 16 100 Oxymask 10 10/17/17 07:20 Room Air 10/17/17 07:12 36.6 89 15 155/79 (104) 96 Room Air 10/16/17 23:02 36.7 92 22 156/82 (106) 96 Room Air Notes Mental Status: alert / awake / arousable, participated in evaluation Pt Amnestic to Procedure: Yes Nausea / Vomiting: adequately controlled Pain: adequately controlled Airway Patency, RR, SpO2: stable & adequate BP & HR: stable & adequate Hydration State: stable & adequate Anesthetic Complications: no major complications apparent
[2017-10-17] MEDS: OXYCODONE/ACETAMINOPHEN 5-325 TAB PO PRN ×3 (11:34→21:40)
[2017-10-17] MEDS: APIXABAN 2.5 MG TAB PO SCH ×2 (11:38→21:38)
[2017-10-17] MEDS: MULTIVITAMIN TAB PO SCH (11:38)
[2017-10-17] MEDS: OLANZAPINE ZYDIS 5 MG ORALLY DIS. TAB PO SCH ×2 (11:39→21:39)
--- NOTE | 2017-10-17 13:00 | Hospitalist Progress Note ---
Hospitalist Progress Note Date of Service Oct 17, 2017. Subjective Pt evaluation today including: conversation w/ patient, conversation w/ family , physical exam, review of inpatient medication list Voiding: montoya catheter in place Ms. Linn is drowsy and confused, oriented to self. Daughters are bedside and state this has been her mental status since she fell in August. She is unable to give much information in a review of systems Medications Medications Administered Medications (Trade) Dose Ordered Sig/Mesfin Route Start Time Stop Time Status Last Admin Dose Admin Apixaban (Eliquis Tab) 2.5 mg BID PO 10/11/17 21:00 11/10/17 20:59 10/17/17 11:38 2.5 MG Metoprolol Succinate (Toprol Xl Tab) 100 mg QAM PO 10/12/17 09:00 11/11/17 08:59 10/16/17 08:45 100 MG Multivitamins (Multivitamin Tab) 1 tab QAM PO 10/12/17 09:00 11/11/17 08:59 10/17/17 11:38 1 TAB Acetaminophen (Tylenol Tab) 650 mg Q4H PRN PO 10/11/17 21:00 11/10/17 20:59 10/12/17 16:24 650 MG Oxycodone/ Acetaminophen (Percocet 5-325mg Tab) 1 tab Q4H PRN PO 10/11/17 21:00 10/25/17 20:59 10/17/17 11:34 1 TAB Cefazolin Sodium 1000 mg/Syringe 5 ml @ 1.667 mls/ min Q8H IV 10/11/17 22:00 10/21/17 21:59 10/17/17 05:21 1.667 MLS/MIN Sodium Chloride 1,000 ml @ 500 mls/hr Q2H IV 10/12/17 06:00 10/12/17 07:59 DC 10/12/17 06:25 500 MLS/HR Sodium Chloride 1,000 ml @ 80 mls/hr [id number] IV 10/12/17 12:15 10/15/17 11:34 DC 10/15/17 04:27 80 MLS/HR Olanzapine (Zyprexa Zydis Od Tab) 1.25 mg BID PO 10/12/17 15:30 2/23/18 15:29 10/17/17 11:39 1.25 MG Lorazepam 0.25 mg/ Syringe 1 ml @ 0.5 mls/min Q8H PRN IV 10/12/17 15:15 11/11/17 15:14 10/13/17 17:26 0.5 MLS/MIN Vancomycin HCl 1000 mg/Sodium Chloride 270 ml @ 125 mls/hr NOW STAT IV 10/12/17 15:31 10/12/17 17:40 DC 10/12/17 16:23 125 MLS/HR Thrombin (Recothrom Kit) 20,000 units STK-MED ONCE .ROUTE 10/14/17 08:40 10/14/17 08:41 DC 10/14/17 08:56 20,000 UNITS Labetalol HCl (Normodyne IV) 5 mg Q5M PRN IV 10/14/17 09:30 10/14/17 14:00 DC 10/14/17 10:18 5 MG Sodium Chloride 1,000 ml @ 80 mls/hr [id number] IV 10/15/17 23:15 11/14/17 23:14 10/16/17 23:36 80 MLS/HR Fentanyl Citrate (Fentanyl Inj) 25 mcg Q5M PRN IV 10/17/17 07:00 10/17/17 12:00 DC 10/17/17 10:07 25 MCG Objective Vital Signs Date Time Temp Pulse Resp B/P (MAP) Pulse Ox O2 Delivery O2 Flow Rate FiO2 10/17/17 11:43 95 16 155/77 (103) 100 3.0 10/17/17 11:12 153/47 (82) 10/17/17 10:36 150/66 10/17/17 10:35 97 21 99 10/17/17 10:35 93 21 10/17/17 10:35 36.6 94 20 150/66 98 Nasal Cannula 2 10/17/17 10:30 86 14 175/88 100 10/17/17 10:30 96 14 175/88 99 Nasal Cannula 2 10/17/17 10:30 92 14 10/17/17 10:26 146/109 10/17/17 10:25 92 18 100 10/17/17 10:25 96 18 10/17/17 10:22 161/82 10/17/17 10:21 165/113 10/17/17 10:20 92 17 10/17/17 10:20 94 17 100 10/17/17 10:16 159/108 10/17/17 10:15 95 22 97 10/17/17 10:15 94 22 10/17/17 10:10 94 16 141/94 100 10/17/17 10:10 93 16 10/17/17 10:06 125/68 10/17/17 10:05 92 15 10/17/17 10:05 91 15 100 10/17/17 10:00 96 23 10/17/17 10:00 96 23 152/85 100 10/17/17 09:56 142/67 10/17/17 09:55 93 22 10/17/17 09:55 89 22 100 10/17/17 09:54 114/99 10/17/17 09:52 98 17 149/136 100 10 10/17/17 09:52 149/136 10/17/17 09:50 92 25 10/17/17 09:50 96 25 100 10/17/17 09:50 36.5 92 16 100 Oxymask 10 10/17/17 07:20 Room Air 10/17/17 07:12 36.6 89 15 155/79 (104) 96 Room Air 10/16/17 23:02 36.7 92 22 156/82 (106) 96 Room Air 10/16/17 19:25 Room Air 10/16/17 15:07 37.2 92 18 145/66 (92) 95 Room Air Physical Exam Notes: General: no distress Eyes: normal inspection, PERLL Respiratory: chest non tender, clear to auscultation, normal breath sounds, no respiratory distress, no accessory muscle use Cardiac: regular rate and rhythm, no rub or gallop, no murmur, no edema, no jvd GI/: active bowel sounds, no abd pain or tenderness, soft, non distended Extremities: normal range of motion, generalized weakness, non tender Neuro/Psych: alert and oriented x 1, normal mood and affect Skin: normal color, dry Assessment and Plan 87 y/o F Hx chronic AF, HTN, PAD, dementia, cerebral aneurysms - presenting from the vascular surgeons office due to a nonhealing RLE wound. She had failed a course of outpt Bactrim a few weeks ago. The wound has been present for 2 months and over the past week appeared to worsen and became necrotic. Additionally, the pt has been increasingly confused, partially due to use of pain medications. She is generally uncooperative and cannot provide additional information. Per her daughter, she has exhibited memory loss and functional decline for the past year. Her decline accelerated with the onset of her infection 2 months prior. She has not been able to converse since that time and is regularly agitated. RLE necrotic, nonhealing ulcer. wound culture growing staph aureus - awaiting sensitivities continue Cefazolin for now since she is afebrile, WBC now normal right leg wound debridement with wound vac placed on 10/14, 10/17 dressing change in OR with 24x12 application of wound vac on right lower leg pain control per vascular surgery Continue gentle hydration due to low po intake AF - continue Eliquis and Metoprolol. heart rate 80s and 90s HTN - cont Metoprolol Discussed consulting Palliative care with daughters. They are very concerned with keeping their mother comfortable but do not have clear goals of care. Spent time educating role of palliative care. They will discuss with their brother and let us know tomorrow if they are interested in meeting with them.
[2017-10-17 13:25] LABS: BASO % 0.1 %; BASO ABS # 0.01 K/uL (0-0.2); EOS % 0.2 %; EOS ABS # 0.02 K/uL (0-0.5); HEMOGLOBIN 9.6 g/dL (12.0-16.0); IG# 0.04 K/uL (0.00-0.02); LYMPH % 6.5 %; LYMPH ABS # 0.83 K/uL (1.2-3.4); MEAN CELL VOLUME 90.4 fL (80-100); MEAN CORPUSCULAR HEMOGLOBIN 28.9 pg (25-34); MEAN PLATELET VOLUME 9.3 fL (7.4-10.4); MONO % 8.5 %; MONO ABS # 1.09 K/uL (0.11-0.59); NEUT % 84.4 %; NEUT ABS # 10.86 K/uL (1.4-6.5); PLATELET COUNT 209 K/uL (130-400); RED CELL DISTRIBUTION WIDTH CV 16.3 % (11.5-14.5); RED CELL DISTRIBUTION WIDTH SD 53.4 fL (36.4-46.3); WHITE BLOOD COUNT 12.85 K/uL (4.8-10.8)
[2017-10-17 13:55] LABS: CALCIUM 8.6 mg/dl (8.5-10.1); CREATININE 0.48 mg/dl (0.60-1.20); POTASSIUM 3.2 mmol/L (3.5-5.1)
[2017-10-17] MEDS ORDERED: POTASSIUM CHLORIDE 10 MEQ TABCR PO ONE (15:30)
[2017-10-17] MEDS: SODIUM CHLORIDE 0.9% 1000ML 1,000 ML IV SCH (17:09)
[2017-10-18] MEDS: SODIUM CHLORIDE 0.9% 1000ML 1,000 ML IV SCH ×2 (01:15→23:48)
[2017-10-18 03:08] VITALS: BP 132/92; PULSE 92; TEMP 36.8; O2SAT 95
[2017-10-18] MEDS: OXYCODONE/ACETAMINOPHEN 5-325 TAB PO PRN ×2 (03:21→23:52)
[2017-10-18] MEDS ORDERED: TRAMADOL HCL 50 MG TAB PO ONE (05:30)
[2017-10-18] MEDS: CEFAZOLIN IV 1,000 MG in SYRINGE 0 ML IV SCH (05:32)
[2017-10-18 07:27] VITALS: BP 150/85; PULSE 98; TEMP 37.3; O2SAT 96
[2017-10-18] MEDS ORDERED: VANCOMYCIN CONSULT ACTIVE PRN (07:40)
[2017-10-18] MEDS ORDERED: VANCOMYCIN INJ 1,500 MG in SODIUM CHLORIDE 0.9% 500ML 500 ML IV ONE (08:00)
[2017-10-18] MEDS: OLANZAPINE ZYDIS 5 MG ORALLY DIS. TAB PO SCH ×2 (08:49→21:09)
[2017-10-18] MEDS ORDERED: HYDROmorphone INJ 0.5 MG/0.5 ML SYR IV STA (09:24)
[2017-10-18] MEDS ORDERED: HYDROmorphone INJ 0.5 MG/0.5 ML SYR IV PRN (09:30)
[2017-10-18] MEDS ORDERED: APIXABAN 2.5 MG TAB PO ONE (09:30)
--- NOTE | 2017-10-18 09:35 | Hospitalist Progress Note ---
Hospitalist Progress Note Date of Service Oct 18, 2017. Subjective Pt evaluation today including: conversation w/ patient, physical exam, chart review, lab review, conversation w/ regulatory consultant Voiding: montoya catheter in place Patient is confused and and in pain, unable to give ROS. States "I want to ". Medications Medications Administered Medications (Trade) Dose Ordered Sig/Mesfin Route Start Time Stop Time Status Last Admin Dose Admin Apixaban (Eliquis Tab) 2.5 mg BID PO 10/11/17 21:00 10/18/17 07:25 DC 10/17/17 21:38 2.5 MG Metoprolol Succinate (Toprol Xl Tab) 100 mg QAM PO 10/12/17 09:00 10/18/17 07:25 DC 10/16/17 08:45 100 MG Multivitamins (Multivitamin Tab) 1 tab QAM PO 10/12/17 09:00 10/18/17 07:25 DC 10/17/17 11:38 1 TAB Acetaminophen (Tylenol Tab) 650 mg Q4H PRN PO 10/11/17 21:00 10/18/17 07:25 DC 10/12/17 16:24 650 MG Oxycodone/ Acetaminophen (Percocet 5-325mg Tab) 1 tab Q4H PRN PO 10/11/17 21:00 10/18/17 07:25 DC 10/18/17 03:21 1 TAB Cefazolin Sodium 1000 mg/Syringe 5 ml @ 1.667 mls/ min Q8H IV 10/11/17 22:00 10/18/17 07:25 DC 10/18/17 05:32 1.667 MLS/MIN Sodium Chloride 1,000 ml @ 500 mls/hr Q2H IV 10/12/17 06:00 10/12/17 07:59 DC 10/12/17 06:25 500 MLS/HR Sodium Chloride 1,000 ml @ 80 mls/hr [id number] IV 10/12/17 12:15 10/15/17 11:34 DC 10/15/17 04:27 80 MLS/HR Olanzapine (Zyprexa Zydis Od Tab) 1.25 mg BID PO 10/12/17 15:30 11/11/17 15:29 10/18/17 08:49 1.25 MG Lorazepam 0.25 mg/ Syringe 1 ml @ 0.5 mls/min Q8H PRN IV 10/12/17 15:15 11/11/17 15:14 10/13/17 17:26 0.5 MLS/MIN Vancomycin HCl 1000 mg/Sodium Chloride 270 ml @ 125 mls/hr NOW STAT IV 10/12/17 15:31 10/12/17 17:40 DC 10/12/17 16:23 125 MLS/HR Thrombin (Recothrom Kit) 20,000 units STK-MED ONCE .ROUTE 10/14/17 08:40 10/14/17 08:41 DC 10/14/17 08:56 20,000 UNITS Labetalol HCl (Normodyne IV) 5 mg Q5M PRN IV 10/14/17 09:30 10/14/17 14:00 DC 10/14/17 10:18 5 MG Sodium Chloride 1,000 ml @ 80 mls/hr [id number] IV 10/15/17 23:15 11/14/17 23:14 10/18/17 01:15 80 MLS/HR Fentanyl Citrate (Fentanyl Inj) 25 mcg Q5M PRN IV 10/17/17 07:00 10/17/17 12:00 DC 10/17/17 10:07 25 MCG Potassium Chloride (Klor-Con M10) 40 meq NOW ONCE PO 10/17/17 15:30 10/17/17 15:31 DC 10/17/17 15:42 40 MEQ Tramadol HCl (Ultram Tab) 50 mg NOW ONCE PO 10/18/17 05:30 10/18/17 05:35 DC 10/18/17 07:37 50 MG Vancomycin HCl 1500 mg/Sodium Chloride 530 ml @ 200 mls/hr TODAY@0800 ONCE IV 10/18/17 08:00 10/18/17 10:38 10/18/17 08:48 200 MLS/HR Objective Vital Signs Date Time Temp Pulse Resp B/P (MAP) Pulse Ox O2 Delivery O2 Flow Rate FiO2 10/18/17 07:30 Room Air 10/18/17 07:27 37.3 98 18 150/85 (106) 96 Room Air 10/18/17 03:08 36.8 92 17 132/92 (105) 95 Room Air 10/18/17 00:00 Room Air 10/17/17 23:12 37.3 80 16 137/74 (95) 92 Room Air 10/17/17 19:03 36.5 96 16 132/78 (96) 91 Room Air 10/17/17 15:43 Room Air 10/17/17 15:11 36.6 86 16 159/79 (105) 96 Room Air 10/17/17 13:42 95 16 145/68 (93) 96 Room Air 10/17/17 11:43 95 16 155/77 (103) 100 3.0 10/17/17 11:12 153/47 (82) 10/17/17 10:36 150/66 10/17/17 10:35 97 21 99 10/17/17 10:35 93 21 10/17/17 10:35 36.6 94 20 150/66 98 Nasal Cannula 2 10/17/17 10:30 86 14 175/88 100 10/17/17 10:30 96 14 175/88 99 Nasal Cannula 2 10/17/17 10:30 92 14 10/17/17 10:26 146/109 10/17/17 10:25 92 18 100 10/17/17 10:25 96 18 10/17/17 10:22 161/82 10/17/17 10:21 165/113 10/17/17 10:20 92 17 10/17/17 10:20 94 17 100 10/17/17 10:16 159/108 10/17/17 10:15 95 22 97 10/17/17 10:15 94 22 10/17/17 10:10 94 16 141/94 100 10/17/17 10:10 93 16 10/17/17 10:06 125/68 10/17/17 10:05 92 15 10/17/17 10:05 91 15 100 10/17/17 10:00 96 23 10/17/17 10:00 96 23 152/85 100 10/17/17 09:56 142/67 10/17/17 09:55 93 22 10/17/17 09:55 89 22 100 10/17/17 09:54 114/99 10/17/17 09:52 98 17 149/136 100 10 10/17/17 09:52 149/136 10/17/17 09:50 92 25 10/17/17 09:50 96 25 100 10/17/17 09:50 36.5 92 16 100 Oxymask 10 Physical Exam Notes: General: no distress Eyes: normal inspection, PERLL Respiratory: chest non tender, fine crackles bilateral bases, no respiratory distress, no accessory muscle use Cardiac: irregular rate and rhythm, no rub or gallop, no murmur, no edema, no jvd GI/: active bowel sounds, no abd pain or tenderness, soft, non distended Extremities: normal range of motion, normal strength, non tender Neuro/Psych: alert and oriented x 3, normal mood and affect Skin: normal color, dry Laboratory Results Last 24 Hours Test 10/17/17 13:09 10/18/17 09:13 White Blood Count 12.85 K/uL Red Blood Count 3.32 M/uL Hemoglobin 9.6 g/dL Hematocrit 30.0 % Mean Corpuscular Volume 90.4 fL Mean Corpuscular Hemoglobin 28.9 pg Mean Corpuscular Hemoglobin Concent 32.0 g/dl Platelet Count 209 K/uL Mean Platelet Volume 9.3 fL Neutrophils (%) (Auto) 84.4 % Lymphocytes (%) (Auto) 6.5 % Monocytes (%) (Auto) 8.5 % Eosinophils (%) (Auto) 0.2 % Basophils (%) (Auto) 0.1 % Neutrophils # (Auto) 10.86 K/uL Lymphocytes # (Auto) 0.83 K/uL Monocytes # (Auto) 1.09 K/uL Eosinophils # (Auto) 0.02 K/uL Basophils # (Auto) 0.01 K/uL RDW Standard Deviation 53.4 fL RDW Coefficient of Variation 16.3 % Immature Granulocyte % (Auto) 0.3 % Immature Granulocyte # (Auto) 0.04 K/uL Sodium Level 144 mmol/L Potassium Level 3.2 mmol/L Chloride Level 111 mmol/L Carbon Dioxide Level 22 mmol/L Anion Gap 11.0 mmol/L Blood Urea Nitrogen 16 mg/dl Creatinine 0.48 mg/dl Est Creatinine Clear Calc Drug Dose 64.1 ml/min Estimated GFR () 101.5 Estimated GFR (Non- 87.6 BUN/Creatinine Ratio 33.1 Random Glucose 86 mg/dl Calcium Level 8.6 mg/dl Magnesium Level 2.0 mg/dl Assessment and Plan 87 y/o F Hx chronic AF, HTN, PAD, dementia, cerebral aneurysms - presenting from the vascular surgeons office due to a nonhealing RLE wound. She had failed a course of outpt Bactrim a few weeks ago. The wound has been present for 2 months and over the past week appeared to worsen and became necrotic. Additionally, the pt has been increasingly confused, partially due to use of pain medications. She is generally uncooperative and cannot provide additional information. Per her daughter, she has exhibited memory loss and functional decline for the past year. Her decline accelerated with the onset of her infection 2 months prior. She has not been able to converse since that time and is regularly agitated. RLE necrotic, nonhealing ulcer. wound culture growing MRSA - Ancef changed to Vanco right leg wound debridement with wound vac placed on 10/14, 10/17 dressing change in OR with 24x12 application of wound vac on right lower leg - plan for wound vac change in OR tomorrow. pain control per vascular surgery - discussed with Bee Turner today - added orders for q3h 0.25 mg dilaudid prn Continue gentle hydration due to low po intake AF - continue Eliquis and Metoprolol. heart rate 80s and 90s HTN - cont Metoprolol Discussed consulting Palliative care with daughters yesterday. They are very concerned with keeping their mother comfortable but do not have clear goals of care. Spent time educating role of palliative care. They will discuss with their brother and let us know if they are interested in meeting with them.
[2017-10-18 09:43] LABS: CREATININE 0.52 mg/dl (0.60-1.20)
[2017-10-18] MEDS: APIXABAN 2.5 MG TAB PO SCH ×2 (10:00→21:07)
[2017-10-18] MEDS: METOPROLOL SUCC 50MG EXT REL TAB PO SCH (10:01)
[2017-10-18] MEDS: MULTIVITAMIN TAB PO SCH (10:01)
[2017-10-18 10:05] LABS: CALCIUM 8.1 mg/dl (8.5-10.1); POTASSIUM 3.8 mmol/L (3.5-5.1)
--- NOTE | 2017-10-18 11:32 | Pharmacy Progress Note ---
Pharmacy Abx Initial Consult Date of Service Oct 18, 2017. Pharmacy Dosing Scope Date of Consult: 10/18/17 Consultation requested by: Dr. Gamboa Pharmacy is consulted to initiate Vanco IV dosing therapy, order appropriate labs and adjust drug dose/frequency. Subjective The patient is a 87 year old female admitted on Oct 11, 2017 at 15:54. Objective Height (Feet): 5 Height (Inches): 2.00 Weight (Kilograms): 58.320 Vital Signs (Past 12Hrs) Vital Signs Past 12 Hours Date Time Temp Pulse Resp B/P (MAP) Pulse Ox O2 Delivery O2 Flow Rate FiO2 10/18/17 07:30 Room Air 10/18/17 07:27 37.3 98 18 150/85 (106) 96 Room Air 10/18/17 03:08 36.8 92 17 132/92 (105) 95 Room Air 10/18/17 00:00 Room Air Lab Results (24Hrs) Laboratory Tests (24 Hours) Test 10/17/17 13:09 White Blood Count 12.85 K/uL (4.8-10.8) H Red Blood Count 3.32 M/uL (4.2-5.4) L Hemoglobin 9.6 g/dL (12.0-16.0) L Hematocrit 30.0 % (37-47) L Mean Corpuscular Volume 90.4 fL (80-100) Mean Corpuscular Hemoglobin 28.9 pg (25-34) Mean Corpuscular Hemoglobin Concent 32.0 g/dl (32-36) Platelet Count 209 K/uL (130-400) Mean Platelet Volume 9.3 fL (7.4-10.4) Neutrophils (%) (Auto) 84.4 % Lymphocytes (%) (Auto) 6.5 % Monocytes (%) (Auto) 8.5 % Eosinophils (%) (Auto) 0.2 % Basophils (%) (Auto) 0.1 % Neutrophils # (Auto) 10.86 K/uL (1.4-6.5) H Lymphocytes # (Auto) 0.83 K/uL (1.2-3.4) L Monocytes # (Auto) 1.09 K/uL (0.11-0.59) H Eosinophils # (Auto) 0.02 K/uL (0-0.5) Basophils # (Auto) 0.01 K/uL (0-0.2) Micro Results Date/Time Source Procedure Growth Status 10/11/17 23:15 Nasal MRSA DNA Surveillance Screen - Final Specimen Negative for MRSA by DNA Probe Complete 10/14/17 09:17 Tissue Leg Gram Stain - Final Resulted 10/14/17 09:17 Bacterial Culture - Preliminary Staph. Aureus Mrsa Resulted Assessment & Plan Assessment Pt is an 87yo F growing MRSA in a non-healing RLE wound. Pt is experiencing leukocytosis w/ a left shift. She is afebrile. Renal fxn looks to be close to her baseline. Pt population p'kinetics: t1/2=12, ke=0.0575. Plan Vancomycin: * Vanco 1500mg(~26mg/kg) IV x1 to quickly achieve a peak of ~37mcg/mL * Then Vanco 1000mg (17mg/kg) q14 set to start at 2000 on 10/18/17 * Goal trough: 15-20mcg/mL for non-healing wound/unfavorable SUMEET * Trough ordered for 10/20/17 @ 1330 Pharmacy will continue to follow and will adjust dose/frequency as necessary. Thank you.
[2017-10-18] MEDS: HYDROmorphone INJ 0.5 MG/0.5 ML SYR IV PRN (13:24)
[2017-10-18 14:54] VITALS: BP 140/77; PULSE 98; TEMP 36.3; O2SAT 96
--- NOTE | 2017-10-18 15:27 | Progress Note ---
Progress Note Date of Service Oct 18, 2017. Progress Note Patient for wound vac change tomorrow in OR under anesthesia.
[2017-10-18 16:28] VITALS: BP 122/84; PULSE 98; TEMP 36.9; O2SAT 96
[2017-10-18] MEDS: BOOST VANILLA PO SCH (17:45)
[2017-10-18] MEDS ORDERED: APIXABAN 2.5 MG TAB PO SCH (21:00)
[2017-10-18] MEDS: VANCOMYCIN INJ 1,000 MG in SODIUM CHLORIDE 0.9% 250ML 250 ML IV SCH (21:06)
[2017-10-18 22:49] VITALS: BP 118/66; PULSE 97; TEMP 37.9; O2SAT 95
[2017-10-19] VITALS (12 sets, daily range): BP systolic 133–166; BP diastolic 68–93; PULSE 71–92; TEMP 36.2–37.4; O2SAT 92–100
[2017-10-19] MEDS ORDERED: NURSING DECISION MEDICATION ORDER SCH (01:45)
[2017-10-19] MEDS: SODIUM CHLORIDE 0.9% 1000ML 1,000 ML IV SCH ×3 (03:49→19:32)
[2017-10-19] MEDS: BOOST VANILLA PO SCH ×3 (08:30→17:45)
[2017-10-19 08:35] LABS: CREATININE 0.47 mg/dl (0.60-1.20)
[2017-10-19] MEDS: HYDROmorphone INJ 0.5 MG/0.5 ML SYR IV PRN ×3 (08:54→13:44)
[2017-10-19] MEDS: MULTIVITAMIN TAB PO SCH (09:00)
[2017-10-19] MEDS: VANCOMYCIN INJ 1,000 MG in SODIUM CHLORIDE 0.9% 250ML 250 ML IV SCH (09:19)
--- NOTE | 2017-10-19 10:02 | Hospitalist Progress Note ---
Hospitalist Progress Note Date of Service Oct 19, 2017. Subjective Pt evaluation today including: conversation w/ patient Patient appears much more comfortable than yesterday. Denies pain but is otherwise unable to provide review of systems Medications Medications (Trade) Dose Ordered Sig/Mesfin Route Start Time Stop Time Status Last Admin Dose Admin Vancomycin HCl 1000 mg/Sodium Chloride 270 ml @ 125 mls/hr Q14H IV 10/18/17 20:00 10/28/17 19:59 10/19/17 09:19 125 MLS/HR Enteral Nutritional Formula (Boost) 1 can TIDM PO 10/18/17 17:45 11/17/17 17:44 10/18/17 17:45 1 CAN Objective Vital Signs Date Time Temp Pulse Resp B/P (MAP) Pulse Ox O2 Delivery O2 Flow Rate FiO2 10/19/17 09:34 93 Room Air 10/19/17 08:07 37.1 71 20 159/83 (108) 93 Room Air 10/19/17 07:15 95 Room Air 10/19/17 00:37 36.2 10/18/17 23:55 Room Air 10/18/17 22:49 37.9 97 18 118/66 (83) 95 Room Air 10/18/17 16:28 36.9 98 16 122/84 (97) 96 Room Air 10/18/17 15:30 Room Air 10/18/17 14:54 36.3 98 16 140/77 (98) 96 Room Air Physical Exam Notes: General: no distress Eyes: normal inspection, PERLL Respiratory: chest non tender, clear to auscultation, normal breath sounds, no respiratory distress, no accessory muscle use Cardiac: regular rate and rhythm, no rub or gallop, no murmur, no edema, no jvd GI/: active bowel sounds, no abd pain or tenderness, soft, non distended Extremities: normal range of motion, normal strength, non tender Neuro/Psych: alert and oriented x 3, normal mood and affect Skin: normal color, dry, wound vac in place Laboratory Results Last 24 Hours Test 10/19/17 07:46 Creatinine 0.47 mg/dl Est Creatinine Clear Calc Drug Dose 65.4 ml/min Estimated GFR () 102.2 Estimated GFR (Non- 88.2 Assessment and Plan 87 y/o F Hx chronic AF, HTN, PAD, dementia, cerebral aneurysms - presenting from the vascular surgeons office due to a nonhealing RLE wound. She had failed a course of outpt Bactrim a few weeks ago. The wound has been present for 2 months and over the past week appeared to worsen and became necrotic. Additionally, the pt has been increasingly confused, partially due to use of pain medications. She is generally uncooperative and cannot provide additional information. Per her daughter, she has exhibited memory loss and functional decline for the past year. Her decline accelerated with the onset of her infection 2 months prior. She has not been able to converse since that time and is regularly agitated. RLE necrotic, nonhealing ulcer. wound culture growing MRSA - Ancef changed to Vanco 10/18 right leg wound debridement with wound vac placed on 10/14, 10/17 dressing change in OR with 24x12 application of wound vac on right lower leg - plan for wound vac change in OR again today. pain control per vascular surgery - addition of dilaudid yesterday appears to be helping with pain control Increased IVF from 80 to 100 ml/hr as patient's mucus membranes appear dry and urine is concentrated, Creat remains wnl AF - continue Eliquis and Metoprolol. heart rate 90s HTN - cont Metoprolol Discussed consulting Palliative care with daughters 10/17. They are very concerned with keeping their mother comfortable but do not have clear goals of care. Spent time educating role of palliative care. They will discuss with their brother and let us know if they are interested in meeting with them.
[2017-10-19] MEDS ORDERED: FENTANYL CITRATE INJ 50 MCG/1 ML 2 ML VIAL ONE (10:05)
--- NOTE | 2017-10-19 10:32 | Clinical Documentation Query ---
CLINICAL DOCUMENTATION QUERY Dr. NOVA, In your clinical opinion is this patient being managed for: ( x) possible protein-calorie malnutrition ( ) Not Agree ( ) Other explanation of clinical findings (Please Explain) ( ) Unable to determine (Please Define) ( ) Need to Discuss The medical record reflects the following clinical findings, treatment, and risk factors. Clinical Indicators:87 yo female presenting with nonhealing RLE wounds. Described as cachectic on admission. Dietary intake varies per nursing assessments with a range of 15-75% and noted dietary consult re:pt not eating adequate amount. Treatment:Dietary consult, Boost tid Risk Factors: age, confusion, RLE leg wound, general functional decline. Please clarify and document your clinical opinion in the progress notes and discharge summary. Terms such as "probable", "suspected", "likely", "questionable", "possible", or "still to be ruled out" are acceptable. IF IN AGREEMENT, YOU MUST DOCUMENT ABOVE DIAGNOSTIC STATEMENT IN DAILY PROGRESS NOTES AND DISCHARGE SUMMARY. This document is not part of the patient's record. Thank You, Soledad Dalal, RN [phone]
--- NOTE | 2017-10-19 10:59 | Progress Note ---
Progress Note Date of Service Oct 19, 2017. Progress Note Patient for dressing change under anesthesia today. I have discussed the risks options and benefits of the procedure with the family. The family understands the risks options and benefits and agrees to the procedure. I have examined the patient, reviewed the History & Physical and in the interval since the performance of the History & Physical I have noted the following changes of clinical significance: No changes noted
[2017-10-19] MEDS ORDERED: NURSING VERBAL MED ORDER ONE (11:00)
[2017-10-19] MEDS ORDERED: HYDROmorphone INJ 0.5 MG/0.5 ML SYR IV ONE (11:15)
[2017-10-19] MEDS ORDERED: FENTANYL CITRATE INJ 50 MCG/1 ML 2 ML VIAL IV PRN (11:15)
[2017-10-19] MEDS ORDERED: ATROPINE SULFATE 0.1 MG/ML 5ML SYR IV PRN (11:15)
[2017-10-19] MEDS ORDERED: ONDANSETRON INJ 2 MG/ML 2 ML VIAL IV PRN (11:15)
[2017-10-19] MEDS ORDERED: EpHEDrine SULFATE INJ 50 MG/ML AMP IV PRN (11:15)
[2017-10-19] MEDS ORDERED: LIDOCAINE HCL 1% 20 ML VIAL ONE (11:20)
[2017-10-19] MEDS ORDERED: BUPIVACAINE/EPINEPHRINE 0.5% MPF 1:200,000 30 ML VIAL ONE (11:20)
--- NOTE | 2017-10-19 12:04 | [facility] Operative Report ---
Operative Report Operative Date Oct 19, 2017. Pre-Operative Diagnosis Open Wound Right Leg Post-Operative Diagnosis Open Wound Right Leg Procedure(s) Performed Dressing change with 22x9 application of wound vac on right lower leg Surgeon Dr Winters Banker Mason Surgeon(s) Radha Mazariegos PA-C Estimated Blood Loss 0cc Findings granulation tissue starting to form Specimens None as per surgeon Drains None Anesthesia Type General Complication(s) none Disposition Recovery Room / PACU Indications This is an 87-year-old female with a large wound of her right leg. It was debrided and covered with a wound VAC last week. She is taken to the operating room today for dressing change under anesthesia. The family understands the risks options and benefits and agrees to go ahead with this procedure Description of Procedure The patient was taken to the operating room placed in the supine position. After general anesthesia was accomplished the wound VAC was removed to the right leg. There is granulation tissue starting to form at the base of the wounds. The wound was irrigated with saline solution. The skin was prepped. Vaseline gauze was placed over the open areas. The wound VAC was then placed over the third wounds of the right leg. Good seal was noted. The wound size remained unchanged at [id number] in size. Patient left the operating room in good condition tolerated the procedure well. Radha Mazariegos Pac assisted due to lack of resident availability and was necessary for prepping, draping, retraction, wound closure deep layers, subcutaneous tissue, and skin closure and was necessary for assisting with the case. I attest to the content of the Intraoperative Record and any orders documented therein. Any exceptions are noted below.
[2017-10-19] MEDS ORDERED: PHENYLEPHRINE 100MCG/ML 5ML SYR ONE (12:22)
[2017-10-19] MEDS ORDERED: ONDANSETRON INJ 2 MG/ML 2 ML VIAL ONE (12:22)
--- NOTE | 2017-10-19 12:58 | Anesthesiology Progress Note ---
Anesthesia Post Op Note Date & Time Oct 19, 2017 at 12:58 Vital Signs Pain Intensity: 0 Vital Signs Past 12 Hours Date Time Temp Pulse Resp B/P (MAP) Pulse Ox O2 Delivery O2 Flow Rate FiO2 10/19/17 12:40 36.8 87 17 143/86 97 Room Air 10/19/17 12:30 86 17 167/88 96 Oxymask 4 10/19/17 12:20 84 17 164/86 99 Oxymask 10 10/19/17 12:11 37.0 87 18 154/84 100 Oxymask 10 10/19/17 10:20 37.1 80 17 154/68 (96) 92 Room Air 10/19/17 09:34 93 Room Air 10/19/17 08:07 37.1 71 20 159/83 (108) 93 Room Air 10/19/17 07:15 95 Room Air Notes Mental Status: alert / awake / arousable, participated in evaluation Pt Amnestic to Procedure: Yes Nausea / Vomiting: adequately controlled Pain: adequately controlled Airway Patency, RR, SpO2: stable & adequate BP & HR: stable & adequate Hydration State: stable & adequate Anesthetic Complications: no major complications apparent
[2017-10-19] MEDS: OXYCODONE/ACETAMINOPHEN 5-325 TAB PO PRN (16:49)
[2017-10-19] MEDS: APIXABAN 2.5 MG TAB PO SCH ×2 (16:50→23:11)
[2017-10-19] MEDS: OLANZAPINE ZYDIS 5 MG ORALLY DIS. TAB PO SCH ×2 (16:51→23:11)
[2017-10-19] MEDS: METOPROLOL SUCC 50MG EXT REL TAB PO SCH (16:52)
[2017-10-20] MEDS: VANCOMYCIN INJ 1,000 MG in SODIUM CHLORIDE 0.9% 250ML 250 ML IV SCH ×3 (00:27→14:47)
[2017-10-20] MEDS ORDERED: NURSING DECISION MEDICATION ORDER SCH (03:45)
[2017-10-20 04:00] VITALS: BP 177/77; PULSE 83; TEMP 36.6; O2SAT 98
[2017-10-20 05:58] VITALS: O2SAT 99
[2017-10-20 07:45] LABS: BASO % 0.2 %; BASO ABS # 0.03 K/uL (0-0.2); EOS % 0.6 %; EOS ABS # 0.07 K/uL (0-0.5); HEMATOCRIT 30.5 % (37-47); HEMOGLOBIN 9.4 g/dL (12.0-16.0); IG# 0.04 K/uL (0.00-0.02); LYMPH ABS # 0.87 K/uL (1.2-3.4); MEAN CELL VOLUME 92.7 fL (80-100); MEAN CORPUSCULAR HEMOGLOBIN 28.6 pg (25-34); MEAN CORPUSCULAR HGB CONC 30.8 g/dl (32-36); MEAN PLATELET VOLUME 9.8 fL (7.4-10.4); MONO % 11.3 %; NEUT % 80.6 %; NEUT ABS # 9.94 K/uL (1.4-6.5); PLATELET COUNT 230 K/uL (130-400); RED CELL DISTRIBUTION WIDTH CV 16.2 % (11.5-14.5); RED CELL DISTRIBUTION WIDTH SD 54.9 fL (36.4-46.3); WHITE BLOOD COUNT 12.35 K/uL (4.8-10.8)
[2017-10-20 08:06] VITALS: BP 151/76; PULSE 80; TEMP 36.9; O2SAT 93
[2017-10-20 08:13] LABS: CALCIUM 8.5 mg/dl (8.5-10.1); CREATININE 0.48 mg/dl (0.60-1.20); POTASSIUM 3.6 mmol/L (3.5-5.1)
[2017-10-20] MEDS: BOOST VANILLA PO SCH ×3 (08:30→18:01)
--- NOTE | 2017-10-20 09:06 | Anesthesiology Progress Note ---
Anesthesia Progress Note Date of Service Oct 20, 2017. Progress Notes Pt is scheduled for RLE debridement and dressing change on 10/21/17. Pt has h/o afib, HTN, PVD, HL, hiatal hernia, OA, dementia, anemia, and intracranial aneurysms. Pt has received multiple anesthetics over the last few days without any complications. Pt is an acceptable candidate for general anesthesia. Consent was obtained over the phone from the pt's son. All questions and concerns were addressed.
[2017-10-20] MEDS: SODIUM CHLORIDE 0.9% 1000ML 1,000 ML IV SCH (09:40)
[2017-10-20] MEDS: MULTIVITAMIN TAB PO SCH (09:42)
[2017-10-20] MEDS: APIXABAN 2.5 MG TAB PO SCH ×2 (09:42→21:33)
[2017-10-20] MEDS: OLANZAPINE ZYDIS 5 MG ORALLY DIS. TAB PO SCH ×2 (09:43→21:33)
[2017-10-20] MEDS: METOPROLOL SUCC 50MG EXT REL TAB PO SCH (09:47)
--- NOTE | 2017-10-20 10:03 | Anesthesiology Progress Note ---
Anesthesia Post Op Note Date & Time Oct 20, 2017 at 10:02 Vital Signs Pain Intensity: 0 Vital Signs Past 12 Hours Date Time Temp Pulse Resp B/P (MAP) Pulse Ox O2 Delivery O2 Flow Rate FiO2 10/20/17 08:06 36.9 80 18 151/76 (101) 93 Room Air 10/20/17 05:58 99 Room Air 10/20/17 04:00 36.6 83 18 177/77 (110) 98 Nasal Cannula 3.0 10/20/17 00:05 Nasal Cannula 3.0 10/19/17 22:55 36.2 83 19 162/93 (116) 96 Nasal Cannula 2.0 Notes Mental Status: alert / awake / arousable, participated in evaluation Pt Amnestic to Procedure: Yes Nausea / Vomiting: adequately controlled Pain: adequately controlled Airway Patency, RR, SpO2: stable & adequate BP & HR: stable & adequate Hydration State: stable & adequate Anesthetic Complications: no major complications apparent
--- NOTE | 2017-10-20 10:37 | Medical Consult ---
Consultation Date of Consultation: Oct 20, 2017. Attending Physician: Haile Winters M.D. Reason for Consultation: MRSA wound infection History of Present Illness 87-year-old female with advanced dementia, cerebral aneurysms, who has been followed by vascular surgery for past several weeks because of nonhealing right lower extremity wound. She has received outpatient course of oral Bactrim therapy without apparent improvement. She was admitted to the hospital October 12 for further management, and has undergone several surgeries for debridement with placement of wound VAC. Operative cultures now growing MRSA. Patient has been changed as of October 18 to vancomycin. She has not had fever, but does have mildly elevated white blood cell count. No other history available from patient. Past Medical/Surgical History Past Medical/Surgical History 1) HTN 2) Chronic AF 3) PAD 4) 2 small cerebral aneurysms were evaluated at [facility] - no intervention is planned 5) Advanced dementia 6) Nonhealing RLE ulcer Family History Noncontributory Social History Smoking Status: Never Smoker Allergies Coded Allergies: No Known Allergies (Unverified , 10/11/17) Current Inpatient Medications Current Inpatient Medications Medications (Trade) Dose Ordered Sig/Mesfin Route Start Time Stop Time Status Last Admin Dose Admin Apixaban (Eliquis Tab) 2.5 mg BID PO 10/11/17 21:00 11/10/17 20:59 10/20/17 09:42 2.5 MG Bisacodyl (Dulcolax Supp) 10 mg Q24H PRN SC 10/11/17 21:00 11/10/17 20:59 Metoprolol Succinate (Toprol Xl Tab) 100 mg QAM PO 10/12/17 09:00 11/11/17 08:59 10/20/17 09:47 100 MG Magnesium Hydroxide (Milk Of Magnesia Susp) 30 ml Q24H PRN PO 10/11/17 21:00 11/10/17 20:59 Multivitamins (Multivitamin Tab) 1 tab QAM PO 10/12/17 09:00 11/11/17 08:59 10/20/17 09:42 1 TAB Acetaminophen (Tylenol Tab) 650 mg Q4H PRN PO 10/11/17 21:00 11/10/17 20:59 10/12/17 16:24 650 MG Oxycodone/ Acetaminophen (Percocet 5-325mg Tab) 1 tab Q4H PRN PO 10/11/17 21:00 10/25/17 20:59 10/19/17 16:49 1 TAB Olanzapine (Zyprexa Zydis Od Tab) 1.25 mg BID PO 10/12/17 15:30 11/11/17 15:29 10/20/17 09:43 1.25 MG Lorazepam 0.25 mg/ Syringe 1 ml @ 0.5 mls/min Q8H PRN IV 10/12/17 15:15 11/11/17 15:14 10/13/17 17:26 0.5 MLS/MIN Sodium Chloride 1,000 ml @ 100 mls/hr Q10H IV 10/15/17 23:15 11/14/17 23:14 10/20/17 09:40 100 MLS/HR Ondansetron HCl (Zofran Inj) 4 mg ONE PRN IV 10/17/17 07:00 Miscellaneous Information (Consult) 1 ea UD PRN N/A 10/18/17 07:40 11/17/17 07:39 Hydromorphone HCl (Dilaudid Inj) 0.25 mg Q3H PRN IV 10/18/17 09:45 11/01/17 09:29 10/19/17 11:03 0.25 MG Vancomycin HCl 1000 mg/Sodium Chloride 270 ml @ 125 mls/hr Q14H IV 10/18/17 20:00 10/28/17 19:59 10/20/17 00:27 125 MLS/HR Enteral Nutritional Formula (Boost) 1 can TIDM PO 10/18/17 17:45 11/17/17 17:44 10/20/17 08:30 1 CAN Review of Systems Not obtainable because of patient's mental status Physical Exam Date Time Temp Pulse Resp B/P (MAP) Pulse Ox O2 Delivery O2 Flow Rate FiO2 10/20/17 08:06 36.9 80 18 151/76 (101) 93 Room Air 10/20/17 05:58 99 Room Air 10/20/17 04:00 36.6 83 18 177/77 (110) 98 Nasal Cannula 3.0 10/20/17 00:05 Nasal Cannula 3.0 10/19/17 22:55 36.2 83 19 162/93 (116) 96 Nasal Cannula 2.0 10/19/17 20:01 37.4 88 16 154/81 (105) 97 Nasal Cannula 4.0 10/19/17 16:00 36.5 92 16 166/89 (114) 100 Nasal Cannula 3.0 10/19/17 15:45 Room Air 10/19/17 15:00 36.5 83 16 145/78 (100) 92 Room Air 10/19/17 14:05 88 16 133/77 (95) 92 Room Air 10/19/17 13:33 85 16 133/85 (101) 94 Room Air 10/19/17 13:00 36.4 88 16 157/82 (107) Room Air 10/19/17 13:00 Room Air 10/19/17 12:40 36.8 87 17 143/86 97 Room Air 10/19/17 12:30 86 17 167/88 96 Oxymask 4 10/19/17 12:20 84 17 164/86 99 Oxymask 10 10/19/17 12:11 37.0 87 18 154/84 100 Oxymask 10 General Appearance: WD/WN, no apparent distress Head: normocephalic, atraumatic Eyes: normal inspection, EOMI, sclerae normal ENT: normal ENT inspection, pharynx normal Neck: supple, no adenopathy, thyroid normal, trachea midline Respiratory/Chest: chest non-tender, lungs clear, normal breath sounds, no respiratory distress Cardiovascular: regular rate, rhythm, no gallop, no murmur Abdomen/GI: normal bowel sounds, non tender, soft, no organomegaly Back: normal inspection, no CVA tenderness Extremities/Musculoskelatal: no calf tenderness, + slow capillary refill, + pertinent finding (Wound VAC in place right leg) Neurologic/Psych: alert, + disoriented Skin: normal color, no rash, + pertinent finding (Erythema of right lower extremity [id number]) Lymphatic: no adenopathy Laboratory Results RUN DATE: 10/19/17 [facility] LAB PAGE 1 RUN TIME: 1140 Specimen Inquiry PATIENT: YAMIL BARKER LOC: [facility] U # : [id number] AGE/SX: 87/F ROOM: [facility] REG : 10/11/[address]: Haile Winters M.D. : 1930 BED: 1 DIS : STATUS: ADM IN TLOC: SPEC #: [id number] YARI: 10/14/17 STATUS: COMP REQ #: [id number] RECD: 10/14/[address]: Haile Winters M.D. SOURCE: TISSUE ENTR: 10/14/[address] [facility] [address]: Parviz Rahman M.D. [facility]: LEG Meena Salcido D.O. ORDERED: AER/ROBERT CULTSMR COMMENTS: RIGHT LEG WOUND Procedure Result Verified Site GRAM STAIN Final 10/15/17-12 RESULT MANY GRAM POSITIVE COCCI MANY GRAM POSITIVE BACILLI FEW WBCs SEEN FEW EPITHELIAL CELLS OR AER/ROBERT CULT Final 10/19/17-1140 Organism 1 STAPH. AUREUS MRSA QUANITY FEW SENS SENSITIVITY TO FOLLOW ANAMelissa NO ANAEROBES ISOLATED. +MIXWOUND PLUS MODERATE COUNTS OF PROBABLE SKIN MARINA SENSITIVITY RESULT INDICATES A METHICILLIN RESISTANT STAPH. AUREUS. PHONED TO [facility] DUFFY ON 10/18/17 AT 0713 BY Carlos French. Results were verbalized back to SOBEIDA. RESULTS WERE ALSO CALLED TO INFECTION CONTROL ANSWERING MACHINE ON 10/18/17 BY SOBEIDA. 1. STAPH. AUREUS MRSA Target Route Dose RX AB Cost M.I.C. IQ ------ ----- ------ -- ------ -------- - ------ TRIMET/SULFA S <=0.5/ 9.5 * OXACILLIN R >2 VANCOMYCIN S 2 ERYTHROMYCIN S <=0.5 TETRACYCLINE S <=4 CLINDAMYCIN S <=0.5 DAPTOMYCIN S 1 RIFAMPIN S <=1 S = SENSITIVE I = INTERMEDIATE R = RESISTANT END OF REPORT Last 24 Hours Test 10/20/17 07:23 White Blood Count 12.35 K/uL Red Blood Count 3.29 M/uL Hemoglobin 9.4 g/dL Hematocrit 30.5 % Mean Corpuscular Volume 92.7 fL Mean Corpuscular Hemoglobin 28.6 pg Mean Corpuscular Hemoglobin Concent 30.8 g/dl Platelet Count 230 K/uL Mean Platelet Volume 9.8 fL Neutrophils (%) (Auto) 80.6 % Lymphocytes (%) (Auto) 7.0 % Monocytes (%) (Auto) 11.3 % Eosinophils (%) (Auto) 0.6 % Basophils (%) (Auto) 0.2 % Neutrophils # (Auto) 9.94 K/uL Lymphocytes # (Auto) 0.87 K/uL Monocytes # (Auto) 1.40 K/uL Eosinophils # (Auto) 0.07 K/uL Basophils # (Auto) 0.03 K/uL RDW Standard Deviation 54.9 fL RDW Coefficient of Variation 16.2 % Immature Granulocyte % (Auto) 0.3 % Immature Granulocyte # (Auto) 0.04 K/uL Sodium Level 144 mmol/L Potassium Level 3.6 mmol/L Chloride Level 114 mmol/L Carbon Dioxide Level 22 mmol/L Anion Gap 8.0 mmol/L Blood Urea Nitrogen 16 mg/dl Creatinine 0.48 mg/dl Est Creatinine Clear Calc Drug Dose 64.1 ml/min Estimated GFR () 101.5 Estimated GFR (Non- 87.6 BUN/Creatinine Ratio 34.0 Random Glucose 89 mg/dl Calcium Level 8.5 mg/dl Magnesium Level 1.9 mg/dl Assessment & Plan Poorly healing right lower extremity wound with MRSA in the setting of likely severe peripheral arterial disease now status post debridement and wound VAC placement. For now, vancomycin appropriate therapy, and given failure Bactrim I think that additional IV antibiotics warranted likely for minimum of 14 days. Will follow.
[2017-10-20] MEDS ORDERED: NURSING VERBAL MED ORDER ONE (11:00)
--- NOTE | 2017-10-20 13:05 | Hospitalist Progress Note ---
Hospitalist Progress Note Date of Service Oct 20, 2017. Subjective Pt evaluation today including: conversation w/ patient, physical exam, chart review, lab review, review of inpatient medication list Voiding: no voiding problems Ms. Linn is unable to give much history due to dementia however she was sleeping and awakes with verbal stimulus and appears comfortable. Per nursing patient had inflamed vulva and white discharge when bathed this morning Objective Vital Signs Date Time Temp Pulse Resp B/P (MAP) Pulse Ox O2 Delivery O2 Flow Rate FiO2 10/20/17 09:40 Room Air 10/20/17 08:06 36.9 80 18 151/76 (101) 93 Room Air 10/20/17 05:58 99 Room Air 10/20/17 04:00 36.6 83 18 177/77 (110) 98 Nasal Cannula 3.0 10/20/17 00:05 Nasal Cannula 3.0 10/19/17 22:55 36.2 83 19 162/93 (116) 96 Nasal Cannula 2.0 10/19/17 20:01 37.4 88 16 154/81 (105) 97 Nasal Cannula 4.0 10/19/17 16:00 36.5 92 16 166/89 (114) 100 Nasal Cannula 3.0 10/19/17 15:45 Room Air 10/19/17 15:00 36.5 83 16 145/78 (100) 92 Room Air 10/19/17 14:05 88 16 133/77 (95) 92 Room Air 10/19/17 13:33 85 16 133/85 (101) 94 Room Air 10/19/17 13:00 36.4 88 16 157/82 (107) Room Air 10/19/17 13:00 Room Air Physical Exam Notes: General: no distress Eyes: normal inspection, PERLL Respiratory: chest non tender, clear to auscultation, normal breath sounds, no respiratory distress, no accessory muscle use Cardiac: regular rate and rhythm, no rub or gallop, no murmur, no edema, no jvd GI/: active bowel sounds, no abd pain or tenderness, soft, non distended Extremities: normal range of motion, normal strength, non tender Neuro/Psych: drowsy, oriented to self, Skin: normal color, dry Laboratory Results Last 24 Hours Test 10/20/17 07:23 White Blood Count 12.35 K/uL Red Blood Count 3.29 M/uL Hemoglobin 9.4 g/dL Hematocrit 30.5 % Mean Corpuscular Volume 92.7 fL Mean Corpuscular Hemoglobin 28.6 pg Mean Corpuscular Hemoglobin Concent 30.8 g/dl Platelet Count 230 K/uL Mean Platelet Volume 9.8 fL Neutrophils (%) (Auto) 80.6 % Lymphocytes (%) (Auto) 7.0 % Monocytes (%) (Auto) 11.3 % Eosinophils (%) (Auto) 0.6 % Basophils (%) (Auto) 0.2 % Neutrophils # (Auto) 9.94 K/uL Lymphocytes # (Auto) 0.87 K/uL Monocytes # (Auto) 1.40 K/uL Eosinophils # (Auto) 0.07 K/uL Basophils # (Auto) 0.03 K/uL RDW Standard Deviation 54.9 fL RDW Coefficient of Variation 16.2 % Immature Granulocyte % (Auto) 0.3 % Immature Granulocyte # (Auto) 0.04 K/uL Sodium Level 144 mmol/L Potassium Level 3.6 mmol/L Chloride Level 114 mmol/L Carbon Dioxide Level 22 mmol/L Anion Gap 8.0 mmol/L Blood Urea Nitrogen 16 mg/dl Creatinine 0.48 mg/dl Est Creatinine Clear Calc Drug Dose 64.1 ml/min Estimated GFR () 101.5 Estimated GFR (Non- 87.6 BUN/Creatinine Ratio 34.0 Random Glucose 89 mg/dl Calcium Level 8.5 mg/dl Magnesium Level 1.9 mg/dl Assessment and Plan 87 y/o F Hx chronic AF, HTN, PAD, dementia, cerebral aneurysms - presenting from the vascular surgeons office due to a nonhealing RLE wound. She had failed a course of outpt Bactrim a few weeks ago. The wound has been present for 2 months and over the past week appeared to worsen and became necrotic. Additionally, the pt has been increasingly confused, partially due to use of pain medications. She is generally uncooperative and cannot provide additional information. Per her daughter, she has exhibited memory loss and functional decline for the past year. Her decline accelerated with the onset of her infection 2 months prior. She has not been able to converse since that time and is regularly agitated. RLE necrotic, nonhealing ulcer. wound culture growing MRSA - Ancef changed to Vanco 10/18 - ID recommends 14 days of IV vanc treatment right leg wound debridement with wound vac placed on 10/14, 10/17 dressing change in OR with 24x12 application of wound vac on right lower leg - plan for wound vac change in OR again today. pain control per vascular surgery - addition of dilaudid appears to be helping with pain control Increased IVF from 80 to 100 ml/hr as patient's mucus membranes appear dry and urine is concentrated, Creat remains wnl Severe protein-calorie malnutrition still has low po intake continue Boost Vaginal Ria Monistat AF - continue Eliquis and Metoprolol. heart rate 90s HTN - cont Metoprolol Discussed consulting Palliative care with daughters 10/17. They are very concerned with keeping their mother comfortable but do not have clear goals of care. Spent time educating role of palliative care. They will discuss with their brother and let us know if they are interested in meeting with them.
[2017-10-20] MEDS ORDERED: VANCOMYCIN TROUGH ONE (13:30)
[2017-10-20] MEDS: OXYCODONE/ACETAMINOPHEN 5-325 TAB PO PRN ×2 (14:46→21:42)
[2017-10-20 14:59] VITALS: BP 131/67; PULSE 78; TEMP 36.4; O2SAT 97
--- NOTE | 2017-10-20 15:10 | Pharmacy Progress Note ---
Pharmacy Antibiotic Prog Note Date of Service Oct 20, 2017. Subjective The patient is currently receiving vancomycin 1000 mg IV every 14 hours. The patient is currently on day # 3 of vancomycin IV therapy for nonhealing RLE wound. Objective Height (Feet): 5 Height (Inches): 2.00 Weight (Kilograms): 58.320 Levels: Item Value Date Time Vancomycin Level Trough 12.8 mcg/ml 10/20/17 1338 Previous dose riley 10/21 @0027. Lab Results (24hrs): Test 10/20/17 07:23 10/20/17 13:38 White Blood Count 12.35 K/uL (4.8-10.8) Red Blood Count 3.29 M/uL (4.2-5.4) Hemoglobin 9.4 g/dL (12.0-16.0) Hematocrit 30.5 % (37-47) Mean Corpuscular Volume 92.7 fL (80-100) Mean Corpuscular Hemoglobin 28.6 pg (25-34) Mean Corpuscular Hemoglobin Concent 30.8 g/dl (32-36) Platelet Count 230 K/uL (130-400) Mean Platelet Volume 9.8 fL (7.4-10.4) Neutrophils (%) (Auto) 80.6 % Lymphocytes (%) (Auto) 7.0 % Monocytes (%) (Auto) 11.3 % Eosinophils (%) (Auto) 0.6 % Basophils (%) (Auto) 0.2 % Neutrophils # (Auto) 9.94 K/uL (1.4-6.5) Lymphocytes # (Auto) 0.87 K/uL (1.2-3.4) Monocytes # (Auto) 1.40 K/uL (0.11-0.59) Eosinophils # (Auto) 0.07 K/uL (0-0.5) Basophils # (Auto) 0.03 K/uL (0-0.2) RDW Standard Deviation 54.9 fL (36.4-46.3) RDW Coefficient of Variation 16.2 % (11.5-14.5) Immature Granulocyte % (Auto) 0.3 % Immature Granulocyte # (Auto) 0.04 K/uL (0.00-0.02) Sodium Level 144 mmol/L (136-145) Potassium Level 3.6 mmol/L (3.5-5.1) Chloride Level 114 mmol/L (98-107) Carbon Dioxide Level 22 mmol/L (21-32) Anion Gap 8.0 mmol/L (3-11) Blood Urea Nitrogen 16 mg/dl (7-18) Creatinine 0.48 mg/dl (0.60-1.20) Est Creatinine Clear Calc Drug Dose 64.1 ml/min Estimated GFR () 101.5 Estimated GFR (Non- 87.6 BUN/Creatinine Ratio 34.0 (10-20) Random Glucose 89 mg/dl (70-99) Calcium Level 8.5 mg/dl (8.5-10.1) Magnesium Level 1.9 mg/dl (1.8-2.4) Vancomycin Level Trough 12.8 mcg/ml (SEE COMMENT) Micro Results: 10/14 tissue leg MRSA- R oxacillin, S clinda, dapto, eryth, rifampin, tetracycline, SMX-TMP, vanc SUMEET=2 Recent Pertinent Medications Item Value Date Time Vancomycin HCl 270 ml @ 125 mls/hr 10/20/17 1447 1000 mg/Sodium Q12@0200,1400/IV Chloride Vancomycin HCl 270 ml @ 125 mls/hr 10/18/17 2000 1000 mg/Sodium Q14H/IV 10/20/17 1447 Chloride Vancomycin HCl 530 ml @ 200 mls/hr 10/18/17 0800 1500 mg/Sodium TODAY@0800 ONCE/IV 10/18/17 0848 Chloride Assessment & Plan This drug level is: Subtherapeutic. Will decrease dosing interval a bit. Change to vancomycin 1000 mg IV every 12 hours. Goal trough level estimate: between 15-20 mcg/mL. Trough has been ordered for: 10/22/17 before 0200 dose. Pharmacy will continue to follow and will adjust dose/frequency as necessary. Thank you
[2017-10-20 19:41] VITALS: BP 124/71; PULSE 78; TEMP 36.9; O2SAT 94
[2017-10-20] MEDS: MICONAZOLE NITRATE-7 (100 MG EA SUPP) BOX PV SCH (21:13)
[2017-10-20 23:15] VITALS: BP 118/66; PULSE 67; TEMP 37; O2SAT 92
[2017-10-21] VITALS (9 sets, daily range): BP systolic 124–149; BP diastolic 59–73; PULSE 78–87; TEMP 36–37.4; O2SAT 91–98
[2017-10-21] MEDS: SODIUM CHLORIDE 0.9% 1000ML 1,000 ML IV SCH ×3 (01:55→13:10)
[2017-10-21] MEDS: VANCOMYCIN INJ 1,000 MG in SODIUM CHLORIDE 0.9% 250ML 250 ML IV SCH ×2 (01:55→14:34)
[2017-10-21] MEDS: OXYCODONE/ACETAMINOPHEN 5-325 TAB PO PRN (02:36)
[2017-10-21] MEDS ORDERED: NURSING VERBAL MED ORDER ONE ×2 (05:15→15:15)
[2017-10-21] MEDS: BOOST VANILLA PO SCH ×3 (07:48→18:23)
[2017-10-21 08:49] LABS: CREATININE 0.6 mg/dl (0.60-1.20)
--- NOTE | 2017-10-21 08:51 | Progress Note ---
Progress Note Date of Service Oct 21, 2017. Progress Note Patient for dressing change under anesthesia today. I have discussed the risks options and benefits of the procedure with the patient's brother and sisters. They understand the risks options and benefits and agrees to the procedure. I have examined the patient, reviewed the History & Physical and in the interval since the performance of the History & Physical I have noted the following changes of clinical significance: No changes noted
[2017-10-21] MEDS ORDERED: MIDAZOLAM HCL 1 MG/ML 2ML VIAL ONE (10:17)
[2017-10-21] MEDS ORDERED: FENTANYL CITRATE INJ 50 MCG/1 ML 2 ML VIAL ONE ×3 (10:17→11:02)
[2017-10-21] MEDS ORDERED: HYDROmorphone INJ 1 MG/ML SYR IV PRN (10:30)
[2017-10-21] MEDS ORDERED: FENTANYL CITRATE INJ 50 MCG/1 ML 2 ML VIAL IV PRN (10:30)
[2017-10-21] MEDS ORDERED: ONDANSETRON INJ 2 MG/ML 2 ML VIAL IV PRN (10:30)
[2017-10-21] MEDS ORDERED: ATROPINE SULFATE 0.1 MG/ML 5ML SYR IV PRN (10:30)
[2017-10-21] MEDS ORDERED: EpHEDrine SULFATE INJ 50 MG/ML AMP IV PRN (10:30)
--- NOTE | 2017-10-21 11:26 | [facility] Post Operative Brief Note ---
Immediate Operative Summary Operative Date Oct 21, 2017. Pre-Operative Diagnosis Right lower leg wound Post-Operative Diagnosis Right lower leg room Procedure(s) Performed Right Lower Leg Dressing Change application of [id number] wound vac Surgeon Dr Winters Assistant Activities Director Surgeon(s) Radha Mazariegos Estimated Blood Loss 0cc Findings Consistent with Post-Op Diagnosis Specimens None as per surgeon Drains None Anesthesia Type MAC Complication(s) none Disposition Accompanied Pt To Recover: no Disposition: Recovery Room / PACU
--- NOTE | 2017-10-21 11:37 | [facility] Operative Report ---
Operative Report Operative Date Oct 21, 2017. Pre-Operative Diagnosis Right lower leg wound Post-Operative Diagnosis Right lower leg room Procedure(s) Performed Right Lower Leg Dressing Change application of 22x9cm wound vac Surgeon Dr Winters Transmission Mechanic Surgeon(s) Radha Mazariegos Estimated Blood Loss 0cc Findings wound with small amount of granulation tissue present. Specimens None as per surgeon Drains None Anesthesia Type MAC Complication(s) none Disposition no Recovery Room / PACU Indications This is an 87-year-old female with a large wound of her right leg. It was debrided and covered with a wound VAC last week. She is taken to the operating room today for another dressing change under anesthesia. The family understands the risks options and benefits and agrees to go ahead with this procedure Description of Procedure The patient was taken to the operating room placed in the supine position. After sedation was accomplished the wound VAC was removed from the right leg. There is granulation tissue starting to form at the base of the wounds. There was a small macerated area between the two open wounds. The wound was irrigated with saline solution. The skin was prepped. The small macerated area was covered with colostat and aquacel. Vaseline gauze was placed over the open areas. The wound VAC was then placed over the wounds of the right leg. Good seal was noted. The wound size remained unchanged at 22x 9cm in size. Patient left the operating room in good condition tolerated the procedure well. Radha Mazariegos Pac assisted due to lack of resident availability and was necessary for prepping, draping, retraction, wound closure deep layers, subcutaneous tissue, and skin closure and was necessary for assisting with the case. I attest to the content of the Intraoperative Record and any orders documented therein. Any exceptions are noted below. I attest to the content of the Intraoperative Record and any orders documented therein. Any exceptions are noted below.
--- NOTE | 2017-10-21 12:20 | Anesthesiology Progress Note ---
Anesthesia Post Op Note Date & Time Oct 21, 2017 at 12:20 Vital Signs Pain Intensity: 0 Vital Signs Past 12 Hours Date Time Temp Pulse Resp B/P (MAP) Pulse Ox O2 Delivery O2 Flow Rate FiO2 10/21/17 12:12 82 18 100 10/21/17 12:12 82 18 10/21/17 12:11 138/55 10/21/17 12:10 37 10/21/17 12:08 83 20 100 10/21/17 12:08 77 20 10/21/17 12:07 75 18 10/21/17 12:07 80 18 100 10/21/17 12:06 123/62 10/21/17 12:02 82 18 100 10/21/17 12:02 79 18 10/21/17 12:01 132/60 10/21/17 11:57 79 17 10/21/17 11:57 75 17 100 10/21/17 11:56 130/50 10/21/17 11:52 79 17 10/21/17 11:52 78 17 100 10/21/17 11:51 82 18 139/64 100 10/21/17 11:51 71 18 10/21/17 11:47 146/61 10/21/17 11:46 83 15 10/21/17 11:46 15 10/21/17 11:42 135/54 10/21/17 11:41 80 17 10/21/17 11:41 77 17 100 10/21/17 11:36 37.1 80 18 102/62 100 Oxymask 10 10/21/17 11:36 18 10/21/17 11:36 78 18 102/62 10/21/17 09:09 98 Room Air 10/21/17 09:00 Room Air 10/21/17 07:53 36.9 78 16 134/70 (91) 98 Room Air Notes Mental Status: alert / awake / arousable, participated in evaluation Pt Amnestic to Procedure: Yes Nausea / Vomiting: adequately controlled Pain: adequately controlled Airway Patency, RR, SpO2: stable & adequate BP & HR: stable & adequate Hydration State: stable & adequate Anesthetic Complications: no major complications apparent
[2017-10-21] MEDS: OLANZAPINE ZYDIS 5 MG ORALLY DIS. TAB PO SCH ×2 (12:58→20:47)
[2017-10-21] MEDS: APIXABAN 2.5 MG TAB PO SCH ×2 (12:59→20:46)
[2017-10-21] MEDS: METOPROLOL SUCC 50MG EXT REL TAB PO SCH (12:59)
[2017-10-21] MEDS: MULTIVITAMIN TAB PO SCH (12:59)
--- NOTE | 2017-10-21 15:35 | Progress Note ---
Subjective Date of Service: Oct 21, 2017. Subjective Pt evaluation today including: conversation w/ patient, physical exam, chart review, lab review, review of studies, conversation w/ hr consultant, review of inpatient medication list Patient back from operational after dressing changes, is sleepy, minimal elevated couple, nurse reported she was eating drinking fair Review of Systems Constitutional: + problem reported (Limited because patient not wake up), No fever, No chills Objective Vital Signs Date Time Temp Pulse Resp B/P (MAP) Pulse Ox O2 Delivery O2 Flow Rate FiO2 10/21/17 14:47 36.0 80 18 128/59 (82) 91 Room Air 10/21/17 13:55 37.0 82 16 124/68 (86) 94 Room Air 10/21/17 13:26 36.6 85 16 148/68 (94) 94 Room Air 10/21/17 12:50 91 Room Air 10/21/17 12:50 37.4 82 16 130/72 (91) 91 Room Air 10/21/17 12:32 78 20 10/21/17 12:32 75 20 100 10/21/17 12:31 130/58 /18 12:27 77 20 100 /18 12:27 81 20 2/18 12:26 129/57 18 12:24 77 19 126/55 100 /18 12:24 77 19 18 12:21 126/55 /18 12:19 77 19 18 12:19 80 19 100 /18 12:18 81 19 18 12:18 80 19 100 /18 12:16 121/50 2/18 12:13 85 17 2/18 12:13 87 17 100 18 12:12 82 18 100 //18 12:12 82 18 2/18 12:11 138/55 2/18 12:10 37 /11/06 12:08 83 20 100 218 12:08 77 20 2/18 12:07 75 18 /18 12:07 80 18 100 2/18 12:06 123/62 10/21/17 12:02 82 18 100 2/18 12:02 79 18 2/18 12:01 132/60 10/21/17 11:57 79 17 10/21/17 11:57 75 17 100 10/21/17 11:56 130/50 10/21/17 11:52 79 17 10/21/17 11:52 78 17 100 10/21/17 11:51 82 18 139/64 100 10/21/17 11:51 71 18 10/21/17 11:47 146/61 10/21/17 11:46 83 15 10/21/17 11:46 15 10/21/17 11:42 135/54 10/21/17 11:41 80 17 10/21/17 11:41 77 17 100 10/21/17 11:36 37.1 80 18 102/62 100 Oxymask 10 10/21/17 11:36 18 10/21/17 11:36 78 18 102/62 10/21/17 09:09 98 Room Air 10/21/17 09:00 Room Air 10/21/17 07:53 36.9 78 16 134/70 (91) 98 Room Air 10/20/17 23:15 37.0 67 18 118/66 (83) 92 Room Air 10/20/17 19:41 36.9 78 18 124/71 (88) 94 Room Air 10/20/17 19:15 Room Air Physical Exam General Appearance: + cachetic, + thin, + pertinent finding (frail chronically ill-looking) Neck: supple Respiratory/Chest: lungs clear, normal breath sounds, no respiratory distress, no accessory muscle use, + decreased breath sounds Cardiovascular: regular rate, rhythm, no edema, no gallop, no JVD, no murmur Abdomen: normal bowel sounds, non tender, soft Extremities: normal range of motion, non-tender, normal inspection, no pedal edema, + pertinent finding (right lower extremity after wound VAC, local area mild red getting and possible very tender in palpation, , she was moaning when I touch) Neurologic/Psychiatric: + pertinent finding (no facial droop) Skin: normal color, warm/dry Laboratory Results Last 24 Hours Test 10/21/17 07:49 Creatinine 0.60 mg/dl Est Creatinine Clear Calc Drug Dose 51.3 ml/min Estimated GFR () 94.3 Estimated GFR (Non- 81.4 Assessment and Plan 87 y/o F admitted to vascular surgeons service due to a nonhealing RLE wound. failed a course of outpt Bactrim a few weeks ago. RLE necrotic, nonhealing ulcer, with MRSA wound culture positive Vanco 10/18 - ID recommends the minimum of 14 days of IV vanc treatment right leg wound debridement with wound vac placed, has been doing wound vac change and dress changes in OR recent Continue pain control and supportive care, is on IV fluid which can be discontinued Severe protein-calorie malnutrition, need to continue nutrition support, Possible vaginal hawk, Monistat ordered, day 2 out of 7-10 days AF controlled: continue Eliquis and Metoprolol. Discussed with primary team and infectious disease GI and DVT prophylaxis is covered, need PT OT as well Continued [facility] stay due to: multiple IV medications needed Discharge planning: uncertain
--- NOTE | 2017-10-21 19:24 | Infectious Disease Progress Nt ---
Progress Note Date of Service Oct 21, 2017. Subjective Pt evaluation today including: conversation w/ patient, physical exam, chart review, lab review, review of studies, conversation w/ personal consultant, review of inpatient medication list Patient status post dressing change in the OR. Remains nonverbal. Currently afebrile, hemodynamically stable. Additional Comments: Not obtainable because of patient's mental status All Other Systems: Reviewed and Negative Medications Current Inpatient Medications Medications (Trade) Dose Ordered Sig/Mesfin Route Start Time Stop Time Status Last Admin Dose Admin Apixaban (Eliquis Tab) 2.5 mg BID PO 10/11/17 21:00 11/10/17 20:59 10/21/17 12:59 2.5 MG Bisacodyl (Dulcolax Supp) 10 mg Q24H PRN [place] 10/11/17 21:00 11/10/17 20:59 Metoprolol Succinate (Toprol Xl Tab) 100 mg QAM PO 10/12/17 09:00 11/11/17 08:59 10/21/17 12:59 100 MG Magnesium Hydroxide (Milk Of Magnesia Susp) 30 ml Q24H PRN PO 10/11/17 21:00 11/10/17 20:59 Multivitamins (Multivitamin Tab) 1 tab QAM PO 10/12/17 09:00 11/11/17 08:59 10/21/17 12:59 1 TAB Acetaminophen (Tylenol Tab) 650 mg Q4H PRN PO 10/11/17 21:00 11/10/17 20:59 10/12/17 16:24 650 MG Oxycodone/ Acetaminophen (Percocet 5-325mg Tab) 1 tab Q4H PRN PO 10/11/17 21:00 10/25/17 20:59 10/21/17 02:36 1 TAB Olanzapine (Zyprexa Zydis Od Tab) 1.25 mg BID PO 10/12/17 15:30 11/11/17 15:29 10/21/17 12:58 1.25 MG Lorazepam 0.25 mg/ Syringe 1 ml @ 0.5 mls/min Q8H PRN IV 10/12/17 15:15 11/11/17 15:14 10/13/17 17:26 0.5 MLS/MIN Ondansetron HCl (Zofran Inj) 4 mg ONE PRN IV 10/17/17 07:00 Miscellaneous Information (Consult) 1 ea UD PRN N/A 10/18/17 07:40 11/17/17 07:39 Hydromorphone HCl (Dilaudid Inj) 0.25 mg Q3H PRN IV 10/18/17 09:45 11/01/17 09:29 10/19/17 11:03 0.25 MG Enteral Nutritional Formula (Boost) 1 can TIDM PO 10/18/17 17:45 11/17/17 17:44 10/21/17 18:23 1 CAN Miconazole Nitrate (Monistat 7 Vag Supp) 1 supp HS PV 10/20/17 21:00 10/27/17 20:59 10/20/17 21:13 1 SUPP Vancomycin HCl 1000 mg/Sodium Chloride 270 ml @ 125 mls/hr Q12@0200,1400 IV 10/20/17 14:47 10/28/17 19:59 10/21/17 14:34 125 MLS/HR Objective Vital Signs Date Time Temp Pulse Resp B/P (MAP) Pulse Ox O2 Delivery O2 Flow Rate FiO2 10/21/17 16:00 91 Room Air 10/21/17 15:55 37.4 80 20 149/69 (95) 91 Room Air 10/21/17 14:47 36.0 80 18 128/59 (82) 91 Room Air 10/21/17 13:55 37.0 82 16 124/68 (86) 94 Room Air 10/21/17 13:26 36.6 85 16 148/68 (94) 94 Room Air 10/21/17 12:50 91 Room Air 10/21/17 12:50 37.4 82 16 130/72 (91) 91 Room Air 10/21/17 12:32 78 20 10/21/17 12:32 75 20 100 10/21/17 12:31 130/58 10/21/17 12:27 77 20 100 10/21/17 12:27 81 20 10/21/17 12:26 129/57 10/21/17 12:24 77 19 126/55 100 10/21/17 12:24 77 19 10/21/17 12:21 126/55 10/21/17 12:19 77 19 10/21/17 12:19 80 19 100 2/2/18 12:18 81 19 2/18 12:18 80 19 100 2/18 12:16 121/50 218 12:13 85 17 218 12:13 87 17 100 218 12:12 82 18 100 2//18 12:12 82 18 2/18 12:11 138/55 10/21/17 12:10 37 10/21/17 12:08 83 20 100 218 12:08 77 20 218 12:07 75 18 18 12:07 80 18 100 10/21/17 12:06 123/62 10/21/17 12:02 82 18 100 10/21/17 12:02 79 18 10/21/17 12:01 132/60 10/21/17 11:57 79 17 10/21/17 11:57 75 17 100 10/21/17 11:56 130/50 10/21/17 11:52 79 17 10/21/17 11:52 78 17 100 10/21/17 11:51 82 18 139/64 100 10/21/17 11:51 71 18 10/21/17 11:47 146/61 18 11:46 83 15 10/21/17 11:46 15 10/21/17 11:42 135/54 10/21/17 11:41 80 17 10/21/17 11:41 77 17 100 10/21/17 11:36 37.1 80 18 102/62 100 Oxymask 10 10/21/17 11:36 18 10/21/17 11:36 78 18 102/62 18 09:09 98 Room Air 10/21/17 09:00 Room Air 10/21/17 07:53 36.9 78 16 134/70 (91) 98 Room Air 10/20/17 23:15 37.0 67 18 118/66 (83) 92 Room Air 10/20/17 19:41 36.9 78 18 124/71 (88) 94 Room Air 10/20/17 19:15 Room Air Physical Exam General Appearance: no apparent distress, + cachetic, + thin Eyes: normal inspection, EOMI, sclerae normal ENT: normal ENT inspection, pharynx normal Neck: supple, no adenopathy, thyroid normal, trachea midline Respiratory/Chest: chest non-tender, lungs clear, normal breath sounds, no respiratory distress Cardiovascular: regular rate, rhythm, no gallop, no murmur Abdomen: normal bowel sounds, non tender, soft, no organomegaly Extremities: non-tender, no calf tenderness Neurologic/Psychiatric: alert, + disoriented Skin: normal color, no rash, + pertinent finding (Wound VAC in place right leg) Lymphatic: no adenopathy Laboratory Results Last 24 Hours Test 10/21/17 07:49 Creatinine 0.60 mg/dl Est Creatinine Clear Calc Drug Dose 51.3 ml/min Estimated GFR () 94.3 Estimated GFR (Non- 81.4 Assessment and Plan Poorly healing right lower extremity wound with MRSA in the setting of likely severe peripheral arterial disease now status post debridement and wound VAC placement. For now, vancomycin appropriate therapy, and given failure Bactrim I think that additional IV antibiotics warranted likely for minimum of 14 days. Will follow.
[2017-10-21] MEDS: MICONAZOLE NITRATE-7 (100 MG EA SUPP) BOX PV SCH (20:48)
[2017-10-22] MEDS: OXYCODONE/ACETAMINOPHEN 5-325 TAB PO PRN ×3 (00:26→20:15)
[2017-10-22] MEDS ORDERED: VANCOMYCIN TROUGH ONE (01:30)
[2017-10-22] MEDS: VANCOMYCIN INJ 1,000 MG in SODIUM CHLORIDE 0.9% 250ML 250 ML IV SCH (02:38)
[2017-10-22 07:00] LABS: CALCIUM 8.1 mg/dl (8.5-10.1); CREATININE 0.58 mg/dl (0.60-1.20); POTASSIUM 3.2 mmol/L (3.5-5.1)
[2017-10-22 07:35] VITALS: BP 151/74; PULSE 77; TEMP 36.4; O2SAT 93
--- NOTE | 2017-10-22 08:26 | Pharmacy Progress Note ---
Pharmacy Abx Dose Short Note Date of Service Oct 22, 2017. Assessment & Plan Assessment 87 year old female receiving vancomycin for treatment of nonhealing MRSA RLE wound Day # 01/30 of antimicrobial therapy. Plan Vancomycin * Trough level of 24.4 mcg/mL is supratherapeutic. * previous dose given ~0.5 hr late, level drawn at appropriate time. * Change to 750 mg IV every 12 hours * Goal trough level : 15 to 20 mcg/mL * Trough ordered for 08/23 @ 0300 Pharmacy will continue to follow and will adjust dose/frequency as necessary. Thank you.
[2017-10-22] MEDS: APIXABAN 2.5 MG TAB PO SCH ×2 (08:41→21:59)
[2017-10-22] MEDS: MULTIVITAMIN TAB PO SCH (08:42)
[2017-10-22] MEDS: OLANZAPINE ZYDIS 5 MG ORALLY DIS. TAB PO SCH ×2 (08:42→21:59)
[2017-10-22] MEDS: METOPROLOL SUCC 50MG EXT REL TAB PO SCH (08:42)
[2017-10-22] MEDS: BOOST VANILLA PO SCH ×3 (08:48→19:18)
[2017-10-22] MEDS: HYDROmorphone INJ 0.5 MG/0.5 ML SYR IV PRN (13:33)
[2017-10-22] MEDS ORDERED: NURSING VERBAL MED ORDER ONE (15:15)
[2017-10-22 16:10] VITALS: BP 127/69; PULSE 77; TEMP 36.3; O2SAT 93
[2017-10-22] MEDS: VANCOMYCIN INJ 750 MG in SODIUM CHLORIDE 0.9% 250ML 250 ML IV SCH (16:20)
[2017-10-22] MEDS: PROSOURCE NOCARB 30ML/PKT PO SCH (16:51)
[2017-10-22] MEDS: NSS + 20MEQ KCL 1000ML 1,000 ML IV SCH (16:51)
--- NOTE | 2017-10-22 17:42 | Progress Note ---
Subjective Date of Service: Oct 22, 2017. Subjective Pt evaluation today including: conversation w/ patient, physical exam, chart review, lab review, review of studies, conversation w/ speech correction consultant, review of inpatient medication list It is first time I saw patient is awake and alert and smiling and answer simple questions Nurse reported she does not eat meals but she like to drink boost and calvin, Although patient able to answer simple questions, even I have several times approaches she was not able to tell me how was the pain level Review of Systems Constitutional: + problem reported (Limited because of not really talkative), No fever, No chills Objective Vital Signs Date Time Temp Pulse Resp B/P (MAP) Pulse Ox O2 Delivery O2 Flow Rate FiO2 10/22/17 16:10 36.3 77 14 127/69 (88) 93 Room Air 10/22/17 12:04 Room Air 10/22/17 07:35 36.4 77 18 151/74 (99) 93 Room Air 10/22/17 01:00 Room Air 10/21/17 22:52 37.0 87 16 140/73 (95) 95 Room Air Physical Exam General Appearance: WD/WN, no apparent distress, + cachetic, + thin, + pertinent finding (frail) Eyes: normal inspection, PERRL, EOMI, sclerae normal ENT: normal ENT inspection, hearing grossly normal, pharynx normal Neck: supple, no adenopathy, thyroid normal, no JVD, no carotid bruits, trachea midline Respiratory/Chest: chest non-tender, no respiratory distress, no accessory muscle use, + decreased breath sounds Cardiovascular: regular rate, rhythm, no edema, no gallop, no JVD, no murmur Abdomen: normal bowel sounds, non tender, no organomegaly, no pulsatile mass Extremities: + pertinent finding (right lower extremity has dress and wound VAC, possible tender with minimal movement or touch) Neurologic/Psychiatric: bus greaser II-XII nml as tested, no motor/sensory deficits, alert, normal mood/affect, oriented x 3 Skin: normal color, warm/dry, no rash Lymphatic: no adenopathy Laboratory Results Last 24 Hours Test 10/22/17 01:29 10/22/17 06:09 Vancomycin Level Trough 24.4 mcg/ml Sodium Level 145 mmol/L Potassium Level 3.2 mmol/L Chloride Level 115 mmol/L Carbon Dioxide Level 24 mmol/L Anion Gap 6.0 mmol/L Blood Urea Nitrogen 19 mg/dl Creatinine 0.58 mg/dl Est Creatinine Clear Calc Drug Dose 53.0 ml/min Estimated GFR () 95.4 Estimated GFR (Non- 82.3 BUN/Creatinine Ratio 33.1 Random Glucose 87 mg/dl Calcium Level 8.1 mg/dl Magnesium Level 1.8 mg/dl Assessment and Plan 87 y/o F admitted to vascular surgeons service due to a nonhealing RLE wound. failed a course of outpt Bactrim a few weeks ago. RLE necrotic, nonhealing ulcer, with MRSA wound culture positive Vanco 10/18 - ID recommends the minimum of 14 days of IV vanc treatment right leg wound debridement with wound vac placed, has been doing wound vac change and dress changes in OR recent, last time was yesterday Continue pain control and supportive care, cause of poor oral intake and decreased urine output, I agree with gentle IV fluid and SS 80 MPH with potassium Severe protein-calorie malnutrition, need to continue nutrition support, Possible vaginal hawk, Monistat ordered, day 23 out of 7-10 days AF controlled: continue Eliquis and Metoprolol. Discussed with primary team and infectious disease Possible poor prognosis because of patient's age and poor nutrition GI and DVT prophylaxis is covered, need PT OT as well Continued [facility] stay due to: multiple IV medications needed Discharge planning: uncertain
[2017-10-22] MEDS: MICONAZOLE NITRATE-7 (100 MG EA SUPP) BOX PV SCH (22:01)
[2017-10-22 23:00] VITALS: BP 128/78; PULSE 69; TEMP 37.4; O2SAT 95
[2017-10-23] MEDS: OXYCODONE/ACETAMINOPHEN 5-325 TAB PO PRN ×2 (01:24→10:30)
[2017-10-23] MEDS: VANCOMYCIN INJ 750 MG in SODIUM CHLORIDE 0.9% 250ML 250 ML IV SCH (02:46)
[2017-10-23] MEDS: HYDROmorphone INJ 0.5 MG/0.5 ML SYR IV PRN ×2 (03:52→13:48)
[2017-10-23] MEDS: NSS + 20MEQ KCL 1000ML 1,000 ML IV SCH ×2 (05:29→18:27)
[2017-10-23 07:24] LABS: CALCIUM 8.5 mg/dl (8.5-10.1); CREATININE 1.14 mg/dl (0.60-1.20); POTASSIUM 3.4 mmol/L (3.5-5.1)
[2017-10-23 07:51] VITALS: BP 135/60; PULSE 82; TEMP 36.6; O2SAT 95
[2017-10-23] MEDS: BOOST VANILLA PO SCH ×3 (08:30→17:45)
[2017-10-23] MEDS: MULTIVITAMIN TAB PO SCH (09:00)
--- NOTE | 2017-10-23 09:23 | Progress Note ---
Progress Note Date of Service Oct 23, 2017. Progress Note No changes. vac in place for wound vac change in OR tomorrow
[2017-10-23] MEDS ORDERED: POTASSIUM CHLORIDE 20 MEQ TABCR PO STA (10:26)
[2017-10-23] MEDS: OLANZAPINE ZYDIS 5 MG ORALLY DIS. TAB PO SCH ×2 (10:34→21:09)
[2017-10-23] MEDS: APIXABAN 2.5 MG TAB PO SCH ×2 (10:35→21:08)
[2017-10-23] MEDS: METOPROLOL SUCC 50MG EXT REL TAB PO SCH (10:36)
[2017-10-23] MEDS: PROSOURCE NOCARB 30ML/PKT PO SCH ×2 (10:36→17:26)
[2017-10-23] MEDS ORDERED: NURSING VERBAL MED ORDER ONE (11:00)
[2017-10-23] MEDS ORDERED: POTASSIUM CHLORIDE 20 MEQ/15 ML UDC PO ONE (11:15)
--- NOTE | 2017-10-23 12:04 | Progress Note ---
Subjective Date of Service: Oct 23, 2017. Subjective Pt evaluation today including: conversation w/ patient, physical exam, chart review, lab review, review of studies, conversation w/ reporting consultant, review of inpatient medication list Patient is crying, possible painful, not really active interaction or conversation, nurse report eating less, only a few drink of boost today Review of Systems Constitutional: + problem reported (Limited not able to completely), No fever, No chills Objective Vital Signs Date Time Temp Pulse Resp B/P (MAP) Pulse Ox O2 Delivery O2 Flow Rate FiO2 10/23/17 07:51 36.6 82 18 135/60 (85) 95 Room Air 10/23/17 07:40 Room Air 10/22/17 23:30 Room Air 10/22/17 23:00 37.4 69 14 128/78 (95) 95 Room Air 10/22/17 16:10 36.3 77 14 127/69 (88) 93 Room Air 10/22/17 16:00 Room Air 10/22/17 12:04 Room Air Physical Exam General Appearance: + severe distress, + thin, + pertinent finding (frail and in pain) Eyes: normal inspection ENT: normal ENT inspection, pharynx normal Neck: supple, no adenopathy Respiratory/Chest: chest non-tender, no respiratory distress, no accessory muscle use, + decreased breath sounds Cardiovascular: regular rate, rhythm, no edema, no gallop Abdomen: normal bowel sounds, non tender, soft Extremities: no pedal edema, + pertinent finding (right foot wound VAC in place , surrounding area skin is red and possible tender) Neurologic/Psychiatric: exhaust emissions inspector II-XII nml as tested, no motor/sensory deficits, alert, normal mood/affect, oriented x 3 Skin: normal color, warm/dry Laboratory Results Last 24 Hours Test 10/23/17 05:51 Sodium Level 145 mmol/L Potassium Level 3.4 mmol/L Chloride Level 115 mmol/L Carbon Dioxide Level 23 mmol/L Anion Gap 7.0 mmol/L Blood Urea Nitrogen 28 mg/dl Creatinine 1.14 mg/dl Est Creatinine Clear Calc Drug Dose 27.0 ml/min Estimated GFR () 49.7 Estimated GFR (Non- 42.9 BUN/Creatinine Ratio 24.3 Random Glucose 92 mg/dl Calcium Level 8.5 mg/dl Magnesium Level 1.9 mg/dl C-Reactive Protein 13.60 mg/dl Prealbumin 6.3 mg/dl Assessment and Plan 87 y/o F admitted to vascular surgeons service due to a nonhealing RLE wound. failed a course of outpt Bactrim a few weeks ago. RLE necrotic, nonhealing ulcer, with MRSA wound culture positive Vanco 10/18 - ID recommends the minimum of 14 days of IV vanc treatment right leg wound debridement with wound vac placed, has been doing wound vac change and dress changes in OR recent, last time was yesterday Continue pain control and supportive care, cause of poor oral intake and decreased urine output, I agree with gentle IV fluid and SS 80 MPH with potassium Severe protein-calorie malnutrition, need to continue nutrition support, Possible vaginal hawk, Monistat ordered, day 23 out of 7-10 days AF controlled: continue Eliquis and Metoprolol. Discussed with primary team and infectious disease Possible poor prognosis because of patient's age and poor nutrition Continue pain control, PT OT, I'm communication with primary team about PICC line and possible TPN for better nutrition support GI and DVT prophylaxis is covered, need PT OT as well Continued [facility] stay due to: multiple IV medications needed Discharge planning: uncertain
--- NOTE | 2017-10-23 12:14 | Pharmacy Progress Note ---
Pharmacy Abx Dose Short Note Date of Service Oct 23, 2017. Assessment & Plan Assessment 87 year old female receiving vancomycin for treatment of MRSA positive nonhealing ulcer Day # 03/02 of antimicrobial therapy. Plan Vancomycin * SCr increased from 0.58 --> 1.14, decreased urine output * Previous trough elevated at 24.4, (decreased dose yesterday) * Will hold vancomycin and get a Random level with AM labs. This is ~24 hours from previous dose * Goal trough level 15-20 mcg/mL * Random level ordered for 2/5 w/ AM labs Pharmacy will continue to follow and will adjust dose/frequency as necessary. Thank you.
[2017-10-23] MEDS ORDERED: TPN/PPN CONSULT PHARMACY PRN (14:43)
[2017-10-23 15:30] VITALS: O2SAT 95
[2017-10-23 16:00] VITALS: BP 180/82; PULSE 82; TEMP 36.1; O2SAT 94
[2017-10-23] MEDS: MICONAZOLE NITRATE-7 (100 MG EA SUPP) BOX PV SCH (21:03)
[2017-10-23 22:59] VITALS: BP 173/80; PULSE 79; TEMP 36.8; O2SAT 94
[2017-10-24] VITALS (10 sets, daily range): BP systolic 133–180; BP diastolic 63–135; PULSE 81–98; TEMP 36.6–37.4; O2SAT 92–100
[2017-10-24] MEDS: HYDROmorphone INJ 0.5 MG/0.5 ML SYR IV PRN ×4 (01:48→19:53)
[2017-10-24] MEDS ORDERED: VANCOMYCIN TROUGH ONE (02:30)
[2017-10-24] MEDS: NSS + 20MEQ KCL 1000ML 1,000 ML IV SCH (05:54)
[2017-10-24 07:07] LABS: CALCIUM 8.3 mg/dl (8.5-10.1); CREATININE 1.47 mg/dl (0.60-1.20); POTASSIUM 3.9 mmol/L (3.5-5.1)
[2017-10-24] MEDS ORDERED: FENTANYL CITRATE INJ 50 MCG/1 ML 2 ML VIAL ONE ×2 (07:07→08:46)
[2017-10-24 07:08] LABS: PHOSPHORUS 3.3 mg/dl (2.5-4.9)
[2017-10-24] MEDS ORDERED: SODIUM CHLORIDE 0.45% 1000ML 1,000 ML IV SCH (08:00)
--- NOTE | 2017-10-24 08:01 | Progress Note ---
Progress Note Date of Service Oct 24, 2017. Progress Note Patient for dressing change today. I have discussed the risks options and benefits of the procedure with the patient; family. The patient's family understand the risks options and benefits and agrees to the procedure. I have examined the patient, reviewed the History & Physical and in the interval since the performance of the History & Physical I have noted the following changes of clinical significance: No changes noted
[2017-10-24] MEDS ORDERED: PROPOFOL IV EMULSION 10 MG/ML 20 ML VIAL IV ONE (08:15)
[2017-10-24] MEDS ORDERED: KETAMINE HCL INJ 50 MG/ML 10 ML VIAL ONE (08:15)
[2017-10-24] MEDS: BOOST VANILLA PO SCH ×3 (08:17→17:45)
--- NOTE | 2017-10-24 08:36 | [facility] Post Operative Brief Note ---
Immediate Operative Summary Operative Date Oct 24, 2017. Pre-Operative Diagnosis Right lower leg wound Post-Operative Diagnosis Right lower leg wound Procedure(s) Performed Dressing change and irrigation of right leg wound Surgeon Dr Winters Compressor Engineer Surgeon(s) Radha Mazariegos Estimated Blood Loss 0cc Findings Consistent with Post-Op Diagnosis Specimens None as per surgeon Drains None Anesthesia Type MAC Complication(s) none Disposition Disposition: Recovery Room / PACU
--- NOTE | 2017-10-24 08:57 | Pharmacy Progress Note ---
Pharmacy Antibiotic Prog Note Date of Service Oct 24, 2017. Subjective The patient is currently receiving vancomycin prn levels The patient is currently on day # 7 of vancomycin IV therapy. Objective Height (Feet): 5 Height (Inches): 2.00 Weight (Kilograms): 58.320 Lab Results (24hrs): Test 10/24/17 05:33 Sodium Level 146 mmol/L (136-145) Potassium Level 3.9 mmol/L (3.5-5.1) Chloride Level 117 mmol/L (98-107) Carbon Dioxide Level 23 mmol/L (21-32) Anion Gap 6.0 mmol/L (3-11) Blood Urea Nitrogen 36 mg/dl (7-18) Creatinine 1.47 mg/dl (0.60-1.20) Est Creatinine Clear Calc Drug Dose 20.9 ml/min Estimated GFR () 36.6 Estimated GFR (Non- 31.5 BUN/Creatinine Ratio 24.5 (10-20) Random Glucose 88 mg/dl (70-99) Calcium Level 8.3 mg/dl (8.5-10.1) Phosphorus Level 3.3 mg/dl (2.5-4.9) Magnesium Level 2.1 mg/dl (1.8-2.4) Random Vancomycin Level 27.0 mcg/ml Assessment & Plan Assessment * 87 yo F admitted 10/12 w non-healing RLE wound / necrotic non-healing ulcer. * HPI * Failed Bactrim as outpatient despite reported sensitivity of MRSA isolated in cultures - possibly due to decreased penetration 2nd peripheral artery disease although outpatient adherence always a concern. * S/p dressing change in OR 10/21 * Cultures * 10/14 Tissue: MRSA * Antibiotics * Initially on cefazolin this admission but switched to vancomycin when cultures resulted with MRSA * Started on vancomycin 10/18 AM * Renal * Likely ADORE * SCr continues to increase significantly, up from 1.14 mg/dL yesterday to 1.47 mg/dL today * UOP declining - typically 500-600 mL from 10/17-10/21, but only 400 mL on 10/22 and 350 mL on 10/23 * ID following * Recommended minimum of 14 days of IV therapy Vancomycin * Day 7 of a minimum of 14 days per ID * Goal vancomycin trough 15-20 mcg/mL * Sometimes 10-15 mcg/mL for skin/skin structure infections, but selected higher goal 2nd MRSA, vancomycin SUMEET of 2 mcg/mL, failure of outpatient treatment despite reported sensitivity, and likely decreased concentrations at site of infection 2nd peripheral artery disease * Held yesterday 2nd significant rise in SCr. Last dose was 10/23 @ ~0300 * Despite being held x24 hours, random level this AM supratherapeutic at 27.0 mcg/mL * Vancomycin t 1/2 likely >= 33 hr at this time. * Will continue to hold vancomycin and repeat random level in 24 hours Plan * Continue to hold vancomycin 2nd supratherapeutic level * Random level 2/6 w AM labs Pharmacy will continue to follow and will adjust dose/frequency as necessary. Thank you
[2017-10-24] MEDS ORDERED: FENTANYL CITRATE INJ 50 MCG/1 ML 2 ML VIAL IV PRN (09:00)
[2017-10-24] MEDS ORDERED: LABETALOL HCL IV 5 MG/ML 20ML IV PRN (09:00)
[2017-10-24] MEDS ORDERED: HYDROmorphone INJ 1 MG/ML SYR IV PRN (09:00)
[2017-10-24] MEDS ORDERED: MEPERIDINE HCL 25 MG/ML CARP IV PRN (09:00)
[2017-10-24] MEDS ORDERED: EpHEDrine SULFATE INJ 50 MG/ML AMP IV PRN (09:00)
[2017-10-24] MEDS ORDERED: ONDANSETRON INJ 2 MG/ML 2 ML VIAL IV PRN (09:00)
[2017-10-24] MEDS ORDERED: ATROPINE SULFATE 0.1 MG/ML 5ML SYR IV PRN (09:00)
--- NOTE | 2017-10-24 09:03 | [facility] Operative Report ---
Operative Report Operative Date Oct 24, 2017. Pre-Operative Diagnosis Open wound, right leg Post-Operative Diagnosis Open wound, right leg Procedure(s) Performed Right lower leg irrigation and dressing change. Surgeon Dr. Haile Wintres Certified Indoor Environmentalist Surgeon(s) Radha Turner PA-C Estimated Blood Loss 0mL Findings purulent open leg wound Specimens None, Per Surgeon Drains None Anesthesia Type MAC Complication(s) none Disposition no Recovery Room / PACU Indications This is an 87-year-old female with a large wound of her right leg. It was debrided and covered with a wound VAC last week. She is taken to the operating room today for another dressing change under anesthesia. The family understands the risks options and benefits and agrees to go ahead with this procedure Description of Procedure The patient was taken to the operating room placed in the supine position. After sedation was accomplished the wound VAC was removed from the right leg. There is granulation tissue starting to form at the base of the wounds. There was purulent drainage in the wound vac. The ulcer over the lateral malleolus is significantly larger and necrotic down to bone. There are new ulcer between the 3rd, 4th and 5th toes of the left foot. The wound was irrigated. The wound was dressed with aquacel and sterile gauze. Patient left the operating room in good condition tolerated the procedure well. Radha Mazariegos Pac assisted due to lack of resident availability and was necessary for prepping, draping, retraction, wound closure deep layers, subcutaneous tissue, and skin closure and was necessary for assisting with the case. I attest to the content of the Intraoperative Record and any orders documented therein. Any exceptions are noted below.
--- NOTE | 2017-10-24 09:49 | Anesthesiology Progress Note ---
Anesthesia Post Op Note Date & Time Oct 24, 2017 at 09:49 Vital Signs Pain Intensity: 4 Vital Signs Past 12 Hours Date Time Temp Pulse Resp B/P (MAP) Pulse Ox O2 Delivery O2 Flow Rate FiO2 10/24/17 09:40 37.2 86 18 142/84 97 Nasal Cannula 4 Oxymask 10/24/17 09:30 82 20 171/90 96 Nasal Cannula 4 Oxymask 10/24/17 09:20 84 20 182/92 98 Nasal Cannula 4 Oxymask 10/24/17 09:10 84 20 169/99 95 Nasal Cannula 4 Oxymask 10/24/17 09:00 86 20 179/103 99 Oxymask 10 10/24/17 08:50 85 20 186/80 96 Oxymask 10 10/24/17 08:43 36.8 84 20 179/96 98 Oxymask 10 10/23/17 23:30 Room Air 10/23/17 22:59 36.8 79 16 173/80 (111) 94 Room Air Notes Mental Status: alert / awake / arousable, participated in evaluation Pt Amnestic to Procedure: Yes Nausea / Vomiting: adequately controlled Pain: adequately controlled Airway Patency, RR, SpO2: stable & adequate BP & HR: stable & adequate Hydration State: stable & adequate Anesthetic Complications: no major complications apparent
--- NOTE | 2017-10-24 10:47 | Pharmacy Progress Note ---
Pharmacy Progress Note Date of Service Oct 24, 2017. Progress Note Pharmacy consulted by Dr. Gamboa on 2/4 PM for PN initiation for decreased po intake, poor nutrition status. PN is not preferred in this patient since GI tract is functional. Patient also a potential refeeding risk if PN initiated. Nutrition recommends attempting to advanced diet and/or EN. Discussed above with Dr. Gamboa today. Recommended palliative care consult to discuss risks/benefits of PN vs EN. PN will be placed on hold and re-assessed tomorrow once palliative care sees patient. Thank you for engaging the clinical pharmacy consult service in the care of this patient. Please let us know if we can be of further assistance.
--- NOTE | 2017-10-24 11:43 | DIAGNOSTIC IMAGING REPORT ---
SINGLE VIEW CHEST CLINICAL HISTORY: PICC placement. FINDINGS: An AP, portable, upright chest radiograph is obtained. No prior studies are available for comparison at the time of dictation. The examination is degraded by portable technique and patient rotation. A right PICC line is been placed. The tip of the catheter projects over the innominate artery. The heart is enlarged and there is atherosclerotic calcification and uncoiling of the thoracic aorta. There is pulmonary vascular congestion with evidence of interstitial edema. There are layering pleural effusions with bibasilar consolidation. No pneumothorax is seen. The skeletal structures are osteopenic. The bony thorax is grossly intact. Small metallic foreign bodies are suggested in the left lower neck. IMPRESSION: 1. A right-sided PICC line has been placed. The tip of the catheter projects over the innominate vein. 2. Cardiomegaly with evidence of congestive failure and interstitial edema. 3. Layering pleural effusions with bibasilar consolidation. Electronically signed by: Steve Bullock M.D. 10/24/2017 11:41 AM Dictated Date/Time: 10/24/2017 11:40 AM
[2017-10-24] MEDS: PROSOURCE NOCARB 30ML/PKT PO SCH ×2 (12:26→17:00)
[2017-10-24] MEDS: MULTIVITAMIN TAB PO SCH (12:26)
[2017-10-24] MEDS: APIXABAN 2.5 MG TAB PO SCH (12:26)
[2017-10-24] MEDS: METOPROLOL SUCC 50MG EXT REL TAB PO SCH (12:26)
[2017-10-24] MEDS: OLANZAPINE ZYDIS 5 MG ORALLY DIS. TAB PO SCH ×2 (12:27→21:00)
--- NOTE | 2017-10-24 14:08 | Hospitalist Progress Note ---
Hospitalist Progress Note Date of Service Oct 24, 2017. Subjective Pt evaluation today including: conversation w/ patient, conversation w/ family , physical exam, chart review, lab review, review of inpatient medication list Voiding: montoya catheter in place Unable to obtain ROS due to mental status/condition. Per nursing, pt failed bedside swallow eval, is NPO except meds. Pt whimpering, crying, appears uncomfortable. Additional Comments: Unable to obtain ROS due to mental status/condition. Objective Vital Signs Date Time Temp Pulse Resp B/P (MAP) Pulse Ox O2 Delivery O2 Flow Rate FiO2 10/24/17 12:39 36.9 90 20 169/135 (146) 92 Mask 4.0 10/24/17 11:42 36.6 89 20 166/96 (119) 92 Mask 4.0 10/24/17 10:40 100 Mask 4.0 10/24/17 10:35 37.1 88 20 180/85 (116) 100 Mask 4.0 10/24/17 10:00 94 Oxymask 4.0 10/24/17 10:00 96 Oxymask 4.0 10/24/17 09:40 37.2 86 18 142/84 97 Nasal Cannula 4 Oxymask 10/24/17 09:30 82 20 171/90 96 Nasal Cannula 4 Oxymask 10/24/17 09:20 84 20 182/92 98 Nasal Cannula 4 Oxymask 10/24/17 09:10 84 20 169/99 95 Nasal Cannula 4 Oxymask 10/24/17 09:00 86 20 179/103 99 Oxymask 10 10/24/17 08:50 85 20 186/80 96 Oxymask 10 10/24/17 08:43 36.8 84 20 179/96 98 Oxymask 10 10/23/17 23:30 Room Air 10/23/17 22:59 36.8 79 16 173/80 (111) 94 Room Air 10/23/17 16:00 36.1 82 16 180/82 (114) 94 Room Air 10/23/17 15:30 95 Room Air Physical Exam Notes: General appearance: +Moderate distress. Well-developed, well-nourished Head: Normocephalic, atraumatic Eyes: Normal inspection, PERRL, EOMI ENT: Normal ENT inspection, hearing grossly normal, pharynx normal Neck: Supple, no JVD, trachea midline Respiratory/Chest: Lungs clear to auscultation, normal breath sounds, no respiratory distress Cardiovascular: +Irregularly irregular. No gallop, no murmur Abdomen/GI: Normal bowel sounds, non-tender, soft Extremities/Musculoskeletal: +Right lower leg wrapped in gauze. Normal inspection, no calf tenderness, no pedal edema Neurological/Psych: +Alert. Unable to assess mood or orientation. Not conversational. Skin: Normal color, warm/dry, no rash Laboratory Results Last 24 Hours Test 10/24/17 05:33 Sodium Level 146 mmol/L Potassium Level 3.9 mmol/L Chloride Level 117 mmol/L Carbon Dioxide Level 23 mmol/L Anion Gap 6.0 mmol/L Blood Urea Nitrogen 36 mg/dl Creatinine 1.47 mg/dl Est Creatinine Clear Calc Drug Dose 20.9 ml/min Estimated GFR () 36.6 Estimated GFR (Non- 31.5 BUN/Creatinine Ratio 24.5 Random Glucose 88 mg/dl Calcium Level 8.3 mg/dl Phosphorus Level 3.3 mg/dl Magnesium Level 2.1 mg/dl Random Vancomycin Level 27.0 mcg/ml Assessment and Plan 87 y/o F Hx chronic AF, HTN, PAD, dementia, cerebral aneurysms who presents from the vascular surgeon's office due to a nonhealing RLE wound. The wound has been present x 2 months with acute worsening in last week and necrosis. Failed outpt Bactrim. Increasing confusion on top of overall decline in memory/ function over last year. RLE necrotic, nonhealing wound, MRSA positive--ongoing -Pt taken to OR for wound irrigation and dressing change today, 2/ -Per vascular, no more wound vac -Palliative care consult, discuss if want amputation, TPN or not -Vancomycin day #7 of 14, infectious disease following -Increase Dilaudid to 0.5 mg IV q3h prn pain as appears to be in a lot of discomfort Severe protein-calorie malnutrition -Currently NPO except meds -Discuss with palliative if want to pursue TPN or not -PICC line in place Vaginal Ria -Continue Monistat day #5 AF--rate controlled -Continue Eliquis 2.5 mg PO BID and Toprol XL 100 mg PO qd HTN--stable -BB as above Code Status -Level I, FULL RESUSCITATION STATUS
--- NOTE | 2017-10-24 14:20 | DIAGNOSTIC IMAGING REPORT ---
SINGLE VIEW CHEST CLINICAL HISTORY: PICC repositioning. FINDINGS: An AP, portable, upright chest radiograph is compared to study performed earlier the same day 10/24/2017. The examination is degraded by portable technique and patient rotation. A right PICC line is been repositioned. The tip of the catheter projects over the cavoatrial junction. The heart is enlarged and there is atherosclerotic calcification and uncoiling of the thoracic aorta. There is pulmonary vascular congestion with evidence of interstitial edema. There are layering pleural effusions with bibasilar consolidation. No pneumothorax is seen. The skeletal structures are osteopenic. The bony thorax is grossly intact. Small metallic foreign bodies are suggested in the left lower neck. IMPRESSION: 1. A right-sided PICC line has been reposition. The tip of the catheter projects over the cavoatrial junction. 2. Cardiomegaly with evidence of congestive failure and interstitial edema. This appears worsened from today's earlier examination. 3. Layering pleural effusions with bibasilar consolidation. 4. Prominence of the aortic knob likely represents uncoiling of the thoracic aorta. Aneurysm could have a similar appearance. Correlation with any prior outside imaging studies will be required. If no prior studies are available this could be further assessed by CT if clinically warranted. Electronically signed by: Steve Bullock M.D. 10/24/2017 2:19 PM Dictated Date/Time: 10/24/2017 2:17 PM
--- NOTE | 2017-10-24 15:21 | Wound Consultation: Inpatient ---
Wound Consultation Date of Consultation: Oct 24, 2017. Attending Physician: Haile Winters M.D. Reason for Consultation: Ulceration right lower extremity History of Present Illness Patient was admitted and has been evaluated for cellulitis with extensive ulceration to the right lower extremity over the past 2 weeks. Patient currently is unable to give any significant history due to her chronic mental status changes. Daughters are present were also unable to give any explanation as to when or how this may have occurred. They state that their mother has been declining in health and mental status since a fall back in August. Limited oral intake. Patient currently is in substantial pain with any movement or touch to the area. Further history was deferred at this time. Patient has been undergoing wound VAC therapy with wound VAC changes required in the operating room due to her noncompliance and pain associated with this treatment. Social History Smoking Status: Never Smoker Allergies Coded Allergies: No Known Allergies (Unverified , 10/11/17) Inpatient Medications Current Inpatient Medications Medications (Trade) Dose Ordered Sig/Mesfin Route Start Time Stop Time Status Last Admin Dose Admin Apixaban (Eliquis Tab) 2.5 mg BID PO 10/11/17 21:00 11/10/17 20:59 10/23/17 21:08 2.5 MG Bisacodyl (Dulcolax Supp) 10 mg Q24H PRN DC 10/11/17 21:00 11/10/17 20:59 Metoprolol Succinate (Toprol Xl Tab) 100 mg QAM PO 10/12/17 09:00 11/11/17 08:59 10/23/17 10:36 100 MG Magnesium Hydroxide (Milk Of Magnesia Susp) 30 ml Q24H PRN PO 10/11/17 21:00 11/10/17 20:59 Multivitamins (Multivitamin Tab) 1 tab QAM PO 10/12/17 09:00 11/11/17 08:59 10/22/17 08:42 1 TAB Acetaminophen (Tylenol Tab) 650 mg Q4H PRN PO 10/11/17 21:00 11/10/17 20:59 10/12/17 16:24 650 MG Oxycodone/ Acetaminophen (Percocet 5-325mg Tab) 1 tab Q4H PRN PO 10/11/17 21:00 10/25/17 20:59 10/23/17 10:30 1 TAB Olanzapine (Zyprexa Zydis Od Tab) 1.25 mg BID PO 10/12/17 15:30 11/11/17 15:29 10/23/17 21:09 1.25 MG Lorazepam 0.25 mg/ Syringe 1 ml @ 0.5 mls/min Q8H PRN IV 10/12/17 15:15 11/11/17 15:14 10/13/17 17:26 0.5 MLS/MIN Ondansetron HCl (Zofran Inj) 4 mg ONE PRN IV 10/17/17 07:00 Miscellaneous Information (Consult) 1 ea PRN N/A 10/18/17 07:40 11/17/17 07:39 Enteral Nutritional Formula (Boost) 1 can TIDM PO 10/18/17 17:45 11/17/17 17:44 10/23/17 17:45 1 CAN Miconazole Nitrate (Monistat 7 Vag Supp) 1 supp HS PV 10/20/17 21:00 10/27/17 20:59 10/23/17 21:03 1 SUPP Enteral Nutritional Formula (Prosource No Carb) 30 ml BID17 PO 10/22/17 17:00 11/21/17 16:59 10/23/17 17:26 30 ML Miscellaneous Information (Pharmacy Tpn/ Ppn Consult Active) 1 [facility] PRN N/A 10/23/17 14:43 11/22/17 14:42 Future Hold Sodium Chloride 1,000 ml @ 75 mls/hr [id number] IV 10/24/17 08:00 11/23/17 07:59 10/24/17 12:30 75 MLS/HR Ephedrine Sulfate (EpHEDrine SULFATE INJ) 5 mg Q5M PRN IV 10/24/17 09:00 10/24/17 18:00 Hydromorphone HCl (Dilaudid Inj) 0.5 mg Q3H PRN IV 10/24/17 13:30 11/07/17 13:29 10/24/17 13:59 0.5 MG Heparin Sodium (Porcine) (Heparin 10 Unit/ ml 5 ml Flush) 5 ml PRN PRN FLUSH 10/24/17 15:15 11/23/17 15:14 Physical Exam Date Time Temp Pulse Resp B/P (MAP) Pulse Ox O2 Delivery O2 Flow Rate FiO2 10/24/17 14:13 37.0 98 20 157/80 (105) 94 Mask 4.0 10/24/17 12:39 36.9 90 20 169/135 (146) 92 Mask 4.0 10/24/17 11:42 36.6 89 20 166/96 (119) 92 Mask 4.0 10/24/17 10:40 100 Mask 4.0 10/24/17 10:35 37.1 88 20 180/85 (116) 100 Mask 4.0 10/24/17 10:00 94 Oxymask 4.0 10/24/17 10:00 96 Oxymask 4.0 10/24/17 09:40 37.2 86 18 142/84 97 Nasal Cannula 4 Oxymask 10/24/17 09:30 82 20 171/90 96 Nasal Cannula 4 Oxymask 10/24/17 09:20 84 20 182/92 98 Nasal Cannula 4 Oxymask 10/24/17 09:10 84 20 169/99 95 Nasal Cannula 4 Oxymask 10/24/17 09:00 86 20 179/103 99 Oxymask 10 10/24/17 08:50 85 20 186/80 96 Oxymask 10 10/24/17 08:43 36.8 84 20 179/96 98 Oxymask 10 10/23/17 23:30 Room Air 10/23/17 22:59 36.8 79 16 173/80 (111) 94 Room Air 10/23/17 16:00 36.1 82 16 180/82 (114) 94 Room Air 10/23/17 15:30 95 Room Air General: The patient is lying in a hospital bed in moderate distress. Alert and difficult to cooperate. HEENT: Pupils equal and reactive to light. Neck: Supple, No JVD noted Chest: CTA in all young. No deformity Heart: RRR without murmurs, S3, S4, thrills, rubs or heaves Extremities: Extensive ulceration is present in the right lower extremity in a circumferential pattern involving the mid calf region. Measurements a 13 cm x 28 cm x 1.2 cm at the maximum depth. Exposure of both tendon in fascia are present. There is no active drainage or specific odor noted at this time. Range of motion is difficult to ascertain due to the patient's lack of cooperation. Distal capillary refill is intact +2 seconds. Neurological: Alert, noncooperative. No apparent focal deficits noted. Laboratory Results Last 24 Hours Test 10/24/17 05:33 Sodium Level 146 mmol/L Potassium Level 3.9 mmol/L Chloride Level 117 mmol/L Carbon Dioxide Level 23 mmol/L Anion Gap 6.0 mmol/L Blood Urea Nitrogen 36 mg/dl Creatinine 1.47 mg/dl Est Creatinine Clear Calc Drug Dose 20.9 ml/min Estimated GFR () 36.6 Estimated GFR (Non- 31.5 BUN/Creatinine Ratio 24.5 Random Glucose 88 mg/dl Calcium Level 8.3 mg/dl Phosphorus Level 3.3 mg/dl Magnesium Level 2.1 mg/dl Random Vancomycin Level 27.0 mcg/ml Assessment & Plan Assessment: Extensive ulceration right lower extremity with significant tissue loss Plan: Multiple treatment options were discussed with the patient's daughters and son. I the ulcerative site in my opinion and based upon the patient's current overall health status that this ulceration will not heal with conservative treatment. If aggressive intervention is to be employed, a BKA amputation is the only probable solution. However again assessing the patient' s overall status associated mortality and/or morbidity with this procedure would be high. This was discussed in detail with the patient's family. They also have the option of placing the patient on hospice with aggressive intervention to control the patient's pain. The family states they will discuss this further but they're leaning towards the hospice status. At the current time will continue Aquacel dressings as I am not convinced that further VAC therapy will alter the outcome. I will continue to monitor the patient as needed.
--- NOTE | 2017-10-24 17:19 | Palliative Care Consultation ---
Consultation Date of Consultation: Oct 24, 2017. Requesting Physician: Dr Morrow Attending Physician: Dr Winters Reason for Consultation: Discuss goals of care with family, determine code status given recent events. History of Present Illness Met with son and 2 daughters at bedside. Pt is an 87 yo female with a PMH of A fib who sustained a RLE wound in Aug. Pt was seen by Dr Winters as an out pt for non healing wound. She was admitted to [facility] on 10/13 for surgical wound debridement. Wound debrided on 10/14 and required dressing changes in the OR due to severe pain and severity of wound. Her last dressing change in the OR was today - wound was larger and necrotic to the bone. Wound vac was placed on 10/21 and was removed today. Family reported that amputation would be needed. Due to pt's advanced age and frail condition family not sure pt would survive such a procedure. Family realizes that to control pt's pain , she is sedated. They voiced understanding and wish for comfort measures only. Discussed IV antibiotics are not helping at this point. They understand and want pt to pass peacefully. Son is her HCS - he signed the POLST form to make pt a DNR. Pt unresponsive on exam with increasing hyperextension of her neck - family aware she may pass in the next 24-48 hours. Past Medical/Surgical History Medical History: A fib, family not aware if she had HTN Surgical History: no known surgeries per family prior to this hospitalization Family History non contributory Social History Smoking Status: Never Smoker History of Alcohol Use: No Marital Status: Housing Status: other (lived independently until end of Aug - lived at [facility] for the 3 weeks prior to admission) Review of Systems Unable to obtain - pt unresponsive. Allergies Coded Allergies: No Known Allergies (Unverified , 10/11/17) Medications Current Inpatient Medications Medications (Trade) Dose Ordered Sig/Mesfin Route Start Time Stop Time Status Last Admin Dose Admin Apixaban (Eliquis Tab) 2.5 mg BID PO 10/11/17 21:00 11/10/17 20:59 10/23/17 21:08 2.5 MG Bisacodyl (Dulcolax Supp) 10 mg Q24H PRN [place] 10/11/17 21:00 11/10/17 20:59 Metoprolol Succinate (Toprol Xl Tab) 100 mg QAM PO 10/12/17 09:00 11/11/17 08:59 10/23/17 10:36 100 MG Magnesium Hydroxide (Milk Of Magnesia Susp) 30 ml Q24H PRN PO 10/11/17 21:00 11/10/17 20:59 Multivitamins (Multivitamin Tab) 1 tab QAM PO 10/12/17 09:00 11/11/17 08:59 10/22/17 08:42 1 TAB Acetaminophen (Tylenol Tab) 650 mg Q4H PRN PO 10/11/17 21:00 11/10/17 20:59 10/12/17 16:24 650 MG Oxycodone/ Acetaminophen (Percocet 5-325mg Tab) 1 tab Q4H PRN PO 10/11/17 21:00 10/25/17 20:59 10/23/17 10:30 1 TAB Olanzapine (Zyprexa Zydis Od Tab) 1.25 mg BID PO 10/12/17 15:30 11/11/17 15:29 10/23/17 21:09 1.25 MG Lorazepam 0.25 mg/ Syringe 1 ml @ 0.5 mls/min Q8H PRN IV 10/12/17 15:15 11/11/17 15:14 10/13/17 17:26 0.5 MLS/MIN Ondansetron HCl (Zofran Inj) 4 mg ONE PRN IV 10/17/17 07:00 Miscellaneous Information (Consult) 1 ea UD PRN N/A 10/18/17 07:40 11/17/17 07:39 Enteral Nutritional Formula (Boost) 1 can TIDM PO 10/18/17 17:45 11/17/17 17:44 10/23/17 17:45 1 CAN Miconazole Nitrate (Monistat 7 Vag Supp) 1 supp HS PV 10/20/17 21:00 10/27/17 20:59 10/23/17 21:03 1 SUPP Enteral Nutritional Formula (Prosource No Carb) 30 ml BID17 PO 10/22/17 17:00 11/21/17 16:59 10/23/17 17:26 30 ML Miscellaneous Information (Pharmacy Tpn/ Ppn Consult Active) 1 ea UD PRN N/A 10/23/17 14:43 11/22/17 14:42 Future Hold Sodium Chloride 1,000 ml @ 75 mls/hr [id number] IV 10/24/17 08:00 11/23/17 07:59 10/24/17 12:30 75 MLS/HR Ephedrine Sulfate (EpHEDrine SULFATE INJ) 5 mg Q5M PRN IV 10/24/17 09:00 10/24/17 18:00 Hydromorphone HCl (Dilaudid Inj) 0.5 mg Q3H PRN IV 10/24/17 13:30 11/07/17 13:29 10/24/17 13:59 0.5 MG Heparin Sodium (Porcine) (Heparin 10 Unit/ ml 5 ml Flush) 5 ml PRN PRN FLUSH 10/24/17 15:15 11/23/17 15:14 Physical Exam Date Time Temp Pulse Resp B/P (MAP) Pulse Ox O2 Delivery O2 Flow Rate FiO2 10/24/17 16:00 100 Oxymask 4.0 10/24/17 15:55 37.4 81 16 143/83 (103) 100 Oxymask 4.0 10/24/17 14:13 37.0 98 20 157/80 (105) 94 Mask 4.0 10/24/17 12:39 36.9 90 20 169/135 (146) 92 Mask 4.0 10/24/17 11:42 36.6 89 20 166/96 (119) 92 Mask 4.0 10/24/17 10:40 100 Mask 4.0 10/24/17 10:35 37.1 88 20 180/85 (116) 100 Mask 4.0 10/24/17 10:00 94 Oxymask 4.0 10/24/17 10:00 96 Oxymask 4.0 10/24/17 09:40 37.2 86 18 142/84 97 Nasal Cannula 4 Oxymask 10/24/17 09:30 82 20 171/90 96 Nasal Cannula 4 Oxymask 10/24/17 09:20 84 20 182/92 98 Nasal Cannula 4 Oxymask 10/24/17 09:10 84 20 169/99 95 Nasal Cannula 4 Oxymask 10/24/17 09:00 86 20 179/103 99 Oxymask 10 10/24/17 08:50 85 20 186/80 96 Oxymask 10 10/24/17 08:43 36.8 84 20 179/96 98 Oxymask 10 10/23/17 23:30 Room Air 10/23/17 22:59 36.8 79 16 173/80 (111) 94 Room Air General Appearance: no apparent distress, + pertinent finding (pt appears confortable , no facial grimacing during exam - pt received IV Dilaudid 0.5 mg prior to exam) Respiratory: no respiratory distress, no accessory muscle use Cardiovascular: + irregularly irregular Abdomen: + pertinent finding (diminished BS) Neurologic/Psychiatric: + motor weakness Skin: warm/dry, + pertinent finding (no mottling) Laboratory Results Last 24 Hours Test 10/24/17 05:33 Sodium Level 146 mmol/L Potassium Level 3.9 mmol/L Chloride Level 117 mmol/L Carbon Dioxide Level 23 mmol/L Anion Gap 6.0 mmol/L Blood Urea Nitrogen 36 mg/dl Creatinine 1.47 mg/dl Est Creatinine Clear Calc Drug Dose 20.9 ml/min Estimated GFR () 36.6 Estimated GFR (Non- 31.5 BUN/Creatinine Ratio 24.5 Random Glucose 88 mg/dl Calcium Level 8.3 mg/dl Phosphorus Level 3.3 mg/dl Magnesium Level 2.1 mg/dl Random Vancomycin Level 27.0 mcg/ml Assessment & Plan Palliative Performance Scale: 10 % 1. Non healing wound - MRSA + - worsening despite surgical debridement and wound vac - switch to comfort care 2. pain - well controlled with prn IV Diluadid 3. Dyspnea/hypoxia - O2 via face mask as tolerated - family OK with removing if it bothers pt 4. A fib - pt no longer able to take PO meds - family OK with stopping 5. POLST form completed, pt DNR - Dr Morrow aware 6. Comfort care only. Counseling and Coordination Total time 70 min at bedside discussing treatment options, prognosis and POC with family, filling out POLST form and discussing EOL issues. Collaborated with Dr Morrow and Dr Winters
[2017-10-24] MEDS ORDERED: LORAZEPAM 0.5 MG TAB PO PRN (17:45)
[2017-10-24] MEDS ORDERED: MoRPHine SULFATE 5 MG/0.25 ML UDP PO PRN (17:45)
--- NOTE | 2017-10-24 20:27 | Infectious Disease Progress Nt ---
Progress Note Date of Service Oct 24, 2017. Subjective Pt evaluation today including: physical exam, chart review, lab review, review of studies, conversation w/ cancer program consultant, review of inpatient medication list Decision for comfort care noted. Patient remains nonresponsive. Additional Comments: Not obtainable because of patient's mental status Medications Current Inpatient Medications Medications (Trade) Dose Ordered Sig/Mesfin Route Start Time Stop Time Status Last Admin Dose Admin Olanzapine (Zyprexa Zydis Od Tab) 1.25 mg BID PO 10/12/17 15:30 11/11/17 15:29 10/23/17 21:09 1.25 MG Lorazepam 0.25 mg/ Syringe 1 ml @ 0.5 mls/min Q8H PRN IV 10/12/17 15:15 11/11/17 15:14 10/13/17 17:26 0.5 MLS/MIN Ondansetron HCl (Zofran Inj) 4 mg ONE PRN IV 10/17/17 07:00 Enteral Nutritional Formula (Boost) 1 can TIDM PO 10/18/17 17:45 11/17/17 17:44 10/23/17 17:45 1 CAN Miconazole Nitrate (Monistat 7 Vag Supp) 1 supp HS PV 10/20/17 21:00 10/27/17 20:59 10/23/17 21:03 1 SUPP Enteral Nutritional Formula (Prosource No Carb) 30 ml BID17 PO 10/22/17 17:00 11/21/17 16:59 10/23/17 17:26 30 ML Miscellaneous Information (Pharmacy Tpn/ Ppn Consult Active) 1 ea UD PRN N/A 10/23/17 14:43 11/22/17 14:42 Future Hold Hydromorphone HCl (Dilaudid Inj) 0.5 mg Q3H PRN IV 10/24/17 13:30 11/07/17 13:29 10/24/17 19:53 0.5 MG Heparin Sodium (Porcine) (Heparin 10 Unit/ ml 5 ml Flush) 5 ml PRN PRN FLUSH 10/24/17 15:15 11/23/17 15:14 Morphine Sulfate (Roxanol Oral Soln) 5 mg Q2HWA PRN PO 10/24/17 17:45 11/07/17 17:44 10/24/17 18:57 5 MG Lorazepam (Ativan Tab) 0.5 mg Q4 PRN PO 10/24/17 17:45 11/23/17 17:44 Objective Vital Signs Date Time Temp Pulse Resp B/P (MAP) Pulse Ox O2 Delivery O2 Flow Rate FiO2 10/24/17 20:00 36.9 86 18 174/82 (112) 98 Oxymask 4.0 10/24/17 16:00 100 Oxymask 4.0 10/24/17 15:55 37.4 81 16 143/83 (103) 100 Oxymask 4.0 10/24/17 14:13 37.0 98 20 157/80 (105) 94 Mask 4.0 10/24/17 12:39 36.9 90 20 169/135 (146) 92 Mask 4.0 10/24/17 11:42 36.6 89 20 166/96 (119) 92 Mask 4.0 10/24/17 10:40 100 Mask 4.0 10/24/17 10:35 37.1 88 20 180/85 (116) 100 Mask 4.0 10/24/17 10:00 94 Oxymask 4.0 10/24/17 10:00 96 Oxymask 4.0 10/24/17 09:40 37.2 86 18 142/84 97 Nasal Cannula 4 Oxymask 10/24/17 09:30 82 20 171/90 96 Nasal Cannula 4 Oxymask 10/24/17 09:20 84 20 182/92 98 Nasal Cannula 4 Oxymask 10/24/17 09:10 84 20 169/99 95 Nasal Cannula 4 Oxymask 10/24/17 09:00 86 20 179/103 99 Oxymask 10 10/24/17 08:50 85 20 186/80 96 Oxymask 10 10/24/17 08:43 36.8 84 20 179/96 98 Oxymask 10 10/23/17 23:30 Room Air 10/23/17 22:59 36.8 79 16 173/80 (111) 94 Room Air Physical Exam General Appearance: no apparent distress, + pertinent finding (Chronically ill- appearing) Eyes: normal inspection, sclerae normal ENT: normal ENT inspection, pharynx normal Neck: supple, no adenopathy, trachea midline Respiratory/Chest: lungs clear, normal breath sounds, no respiratory distress Cardiovascular: no gallop, no murmur, + irregularly irregular Abdomen: normal bowel sounds, non tender, soft, no organomegaly Extremities: + inflammation (Right lower leg), + swelling Neurologic/Psychiatric: alert, + disoriented Skin: normal color, no rash, + pertinent finding (Wound VAC in place right leg) Lymphatic: no adenopathy Laboratory Results Last 24 Hours Test 10/24/17 05:33 Sodium Level 146 mmol/L Potassium Level 3.9 mmol/L Chloride Level 117 mmol/L Carbon Dioxide Level 23 mmol/L Anion Gap 6.0 mmol/L Blood Urea Nitrogen 36 mg/dl Creatinine 1.47 mg/dl Est Creatinine Clear Calc Drug Dose 20.9 ml/min Estimated GFR () 36.6 Estimated GFR (Non- 31.5 BUN/Creatinine Ratio 24.5 Random Glucose 88 mg/dl Calcium Level 8.3 mg/dl Phosphorus Level 3.3 mg/dl Magnesium Level 2.1 mg/dl Random Vancomycin Level 27.0 mcg/ml Assessment and Plan Poorly healing right lower extremity wound with MRSA in the setting of likely severe peripheral arterial disease now status post multiple debridement and wound VAC placement. Patient showing no significant improvement with aggressive local care and antibiotics. She has an for comfort care only, antibiotics have been discontinued. Will defer further infectious disease follow-up this time. Please contact me if further input required.
[2017-10-24] MEDS: MICONAZOLE NITRATE-7 (100 MG EA SUPP) BOX PV SCH (21:23)
[2017-10-25] VITALS: O2SAT 100
[2017-10-25] MEDS: HYDROmorphone INJ 0.5 MG/0.5 ML SYR IV PRN ×5 (04:13→19:23)
[2017-10-25 07:29] VITALS: BP 147/79; PULSE 93; TEMP 36.6; O2SAT 99
[2017-10-25] MEDS: BOOST VANILLA PO SCH ×3 (08:30→17:26)
[2017-10-25] MEDS: PROSOURCE NOCARB 30ML/PKT PO SCH ×2 (09:00→16:34)
[2017-10-25] MEDS: OLANZAPINE ZYDIS 5 MG ORALLY DIS. TAB PO SCH ×2 (09:00→20:42)
--- NOTE | 2017-10-25 10:08 | Anesthesiology Progress Note ---
Anesthesia Post Op Note Date & Time Oct 25, 2017 at 10:06 Vital Signs Pain Intensity: 10.0 Vital Signs Past 12 Hours Date Time Temp Pulse Resp B/P (MAP) Pulse Ox O2 Delivery O2 Flow Rate FiO2 10/25/17 07:29 36.6 93 18 147/79 (101) 99 4.0 10/25/17 00:00 100 Oxymask 4.0 10/24/17 22:15 37.3 93 16 133/63 (86) 99 Oxymask 4.0 Notes Mental Status: see Notes Pt Amnestic to Procedure: Yes Nausea / Vomiting: adequately controlled Pain: adequately controlled, see Notes Airway Patency, RR, SpO2: stable & adequate BP & HR: stable & adequate Hydration State: stable & adequate Anesthetic Complications: no major complications apparent patient has severe dementia and unable to participate in evaluation. Nurse said patient is now on comfort care receiving ativan and morphine for comfort. No apparent complications noted from surgery or anesthetic.
--- NOTE | 2017-10-25 10:11 | Progress Note ---
Progress Note Date of Service: Oct 25, 2017. Subjective 87 yo f with multiple medical problems, s/p RLE wound debridement, seen in f/u today. Pt nonverbal, cries out with any stimulation. Per staff, pt stable. Objective Vital Signs Vital Signs Past 12 Hours Date Time Temp Pulse Resp B/P (MAP) Pulse Ox O2 Delivery O2 Flow Rate FiO2 10/25/17 07:29 36.6 93 18 147/79 (101) 99 4.0 10/25/17 00:00 100 Oxymask 4.0 10/24/17 22:15 37.3 93 16 133/63 (86) 99 Oxymask 4.0 Exam CONST: rouses to her name, otherwise nonverbal. pale, frail, thin, chronically ill appearing female CHEST: Irregular, lungs decreased, but ctab ABD: soft, + bs EXT: RLE with large, deep open areas to lower leg, minimal necrosis at edges, odor. Periwound erythema noted. pink tissue in wound, however, significant drainage noted. lateral malleolus necrotic eshcar, toes with open areas between and foul odor. Laboratory and Microbiology Results Past 24 Hours Test 10/25/17 05:30 Range/Units Random Vancomycin Level 21.4 mcg/ml ASSESSMENT and PLAN: s/p RLE wound debridement RLE open wounds Pt appears to be deteriorating in general. RLE wound vac draining monica purulent drainage yesterday. D/t extent of infection, recommended considering RLE AK amputation vs palliative care. Palliative service discussed with family , who agreed to comfort measures and DNR. Considering d/c to SNF on hospice.
--- NOTE | 2017-10-25 10:28 | Palliative Care Progress Note ---
Palliative Care Progress Note Date of Service Oct 25, 2017. Subjective Pt evaluation today including: physical exam, chart review Pain: Pt calls out occasionally, calms quickly. PO Intake: none Voiding: no voiding problems Spoke with nursing - family OK with removing O2 if it bothers pt. Pt with eyes open, did focus on my face for a brief period, did not attempt to speak, or nod to questions regarding comfort. Review of Systems unable to obtain - pt did not respond to any questions Objective Vital Signs Date Time Temp Pulse Resp B/P (MAP) Pulse Ox O2 Delivery O2 Flow Rate FiO2 10/25/17 10:00 Oxymask 4.0 10/25/17 07:29 36.6 93 18 147/79 (101) 99 4.0 10/25/17 00:00 100 Oxymask 4.0 10/24/17 22:15 37.3 93 16 133/63 (86) 99 Oxymask 4.0 10/24/17 20:00 36.9 86 18 174/82 (112) 98 Oxymask 4.0 10/24/17 16:00 100 Oxymask 4.0 10/24/17 15:55 37.4 81 16 143/83 (103) 100 Oxymask 4.0 10/24/17 14:13 37.0 98 20 157/80 (105) 94 Mask 4.0 10/24/17 12:39 36.9 90 20 169/135 (146) 92 Mask 4.0 10/24/17 11:42 36.6 89 20 166/96 (119) 92 Mask 4.0 10/24/17 10:40 100 Mask 4.0 10/24/17 10:35 37.1 88 20 180/85 (116) 100 Mask 4.0 Physical Exam General Appearance: + pertinent finding (appears comfortable ) Eyes: + pertinent finding (gaze focused for a short time. ) Respiratory/Chest: no respiratory distress, + pertinent finding (oxy mask in place) Cardiovascular: + irregularly irregular Abdomen: + pertinent finding (decreased BS) Extremities: + pertinent finding (wound dressing in place) Neurologic/Psychiatric: + pertinent finding (minimally responsive) Skin: warm/dry, + pertinent finding (no mottling) Laboratory Results Last 24 Hours Test 10/25/17 05:30 Random Vancomycin Level 21.4 mcg/ml Assessment and Plan Pt is an 87 yo female with a MRSA + , non healing RLE wound - last surgical note reported necrosis to the level of the bone. Family aware and accepting of pt's imminent demise. Pt nearing EOL, I believe she is too fragile to transfer to a facility. She continues to require IV Dilaudid for pain control. Pt fits criteria for [facility] Hospice care - she requires [facility] to evaluate for pain and anxiety in a non verbal pt as well as requiring frequent IV pain meds for comfort. Palliative Performance Scale: 10 % Continued [facility] stay due to: multiple IV medications needed Discharge planning: uncertain
[2017-10-25] MEDS: LORAZEPAM IV PRN (11:58)
[2017-10-25] MEDS ORDERED: NURSING VERBAL MED ORDER ONE (12:15)
[2017-10-25] MEDS ORDERED: ATROPINE SULFATE 1% OP SOLN 5 ML BTL PO PRN (16:15)
[2017-10-25] MEDS ORDERED: ATV5 PO (16:17)
[2017-10-25] MEDS ORDERED: DLDI.5 IV (16:17)
--- NOTE | 2017-10-25 16:23 | Discharge Instructions ---
Discharge Instructions Date of Service Oct 25, 2017. Admission Reason for Admission: R Leg Wound Infection Discharge Discharge Diagnosis / Problem: Right lower extremity wound Discharge Goals Goal(s): Diagnostic testing, Therapeutic intervention Activity Recommendations Activity Limitations: as noted below Exercise/Sports Limitations: rest today . Instructions / Follow-Up Instructions / Follow-Up Discharged and admitted to General Inpatient Hospice Current Hospital Diet Patient's current hospital diet: Regular Diet Discharge Diet Recommended Diet: Regular Diet Procedures Procedures Performed: Right lower leg irrigation and dressing change. Pending Studies Studies pending at discharge: no Medical Emergencies . Who to Call and When: Medical Emergencies: If at any time you feel your situation is an emergency, please call 911 immediately. . Non-Emergent Contact Non-Emergency issues call your: Primary Care Provider . . "Provider Documentation" section prepared by Inez Amado. . VTE Core Measure Inpt VTE Proph given/why not?: Other Anticoagulation (Eliquis)
[2017-10-25] MEDS ORDERED: LORAZEPAM INJ 0.5 MG in SYRINGE 0.75 ML IV PRN (16:30)
--- NOTE | 2017-10-25 16:33 | Discharge Summary ---
Discharge Summary Date of Service Oct 25, 2017. Discharge Summary Admission Date: Oct 11, 2017 at 15:54 Discharge Date: Oct 25, 2017 Discharge Disposition: Acute care facility (General Inpatient Hospice) Principal Diagnosis: RLE Wound Problems/Secondary Diagnoses: Chronic AF on group home anticoagulation HTN PAD Dementia Cerebral aneurysms RLE necrotic, nonhealing wound, MRSA positive--ongoing Severe protein-calorie malnutrition Vaginal Ria Procedures: Chest xrays RLE wound debridement and multiple dressing changes with wound vac placement under anesthesia Consultations: Vascular Surgery was Primary Service Medicine/Hospitalist Infectious Disease Palliative Care Wound Care Medication Reconciliation New Medications: Hydromorphone HCl (Hydromorphone HCl) 0.5 Mg/0.5 Ml Inj 0.5 MG IV Q1H PRN for Pain for 7 Days Lorazepam (Lorazepam) 0.5 Mg Tab 0.5 MG PO Q4 PRN for Anxiety for 7 Days, TAB Discharge Exam Pt opens eyes with verbal stimulus, but mostly sleeping. Transitioning to [facility]. Family reports gurgling sounds ROS unobtainable due to obtunded status Physical Exam: General Appearance: no apparent distress (but wakes up and startles at times ) Eyes: sclerae normal ENT: + pertinent finding (pharynx dry) Neck: trachea midline Respiratory/Chest: no respiratory distress, no accessory muscle use Cardiovascular: no murmur, + irregularly irregular (with mild tachycardia) Abdomen / GI: non tender, soft Extremities: + pertinent finding (RLE with dressing in place not removed, c/ d/i) Neurologic/Psychiatric: + pertinent finding (drowsy) Skin: warm/dry Hospital Course 87 y/o F Hx chronic AF, HTN, PAD, dementia, cerebral aneurysms who presents from the vascular surgeon's office due to a nonhealing RLE wound. The wound has been present x 2 months with acute worsening in last week and necrosis. Failed outpt Bactrim. Increasing confusion on top of overall decline in memory/ function over last year. RLE necrotic, nonhealing wound, MRSA positive- -with multiple trips to OR for wound irrigation and dressing changes after debridement -Per vascular, no more wound vac -Palliative care consult, discuss if want amputation,family decided to not proceed with AKA, and to pursue SERVICES PROGRAM MANAGER -dc'd Vancomycin , infectious disease following -Increased Dilaudid to 0.5 mg IV q1h prn pain -increased ativan to 0.5mg IV q4 hours prn agitation or anxiety -add on atropine drops prn excessive secretions -Discharge to [facility] Severe protein-calorie malnutrition -no TPN, SERVICES PROGRAM MANAGER -sips/chips/food as desired/tolerated Vaginal Ria dc Monistat AF-no further meds to be given now that on SERVICES PROGRAM MANAGER -discontinue Eliquis 2.5 mg PO BID and Toprol XL 100 mg PO qd HTN--no further treatment Code Status DNR/DNI Total Time Spent: Greater than 30 minutes This includes examination of the patient, discharge planning, medication reconciliation, and communication with other providers. Discharge Instructions Please refer to the electronic Patient Visit Report (Discharge Instructions) for additional information. Follow-Up None Additional Copies To Meena Salcido D.O.
[2017-10-25] MEDS: MICONAZOLE NITRATE-7 (100 MG EA SUPP) BOX PV SCH (20:42)
== END 2017-10-25 16:23 | disposition other institution (70) | DRG 570 ==
LOC: C.MSW 15:54
PROVIDERS: ADMIT Surgery Vascular Surgery; ATTEND Family Medicine
PROC: 0JBN0ZZ Excision of Right Lower Leg Subcutaneous Tissue and Fascia, Open Approach (ICD-10-PCS; principal; 2017-10-14 08:00)
DX: S81.801A Unspecified open wound, right lower leg, initial encounter (principal); E43 Unspecified severe protein-calorie malnutrition; R64 Cachexia; Z51.5 Encounter for palliative care; I10 Essential (primary) hypertension; I48.91 Unspecified atrial fibrillation; I73.9 Peripheral vascular disease, unspecified; F03.90 Unspecified dementia, unspecified severity, without behavioral disturbance, psychotic disturbance, mood disturbance, and anxiety; E78.5 Hyperlipidemia, unspecified; M19.90 Unspecified osteoarthritis, unspecified site; A49.02 Methicillin resistant Staphylococcus aureus infection, unspecified site; B37.3 Candidiasis of vulva and vagina; Z66 Do not resuscitate; X58.XXXA Exposure to other specified factors, initial encounter; Z79.01 Long term (current) use of anticoagulants

== ENCOUNTER 2017-10-25 15:43 | Inpatient (IN) | payer OTHER ==
[2017-10-25] MEDS ORDERED: ATV5 PO (16:17)
[2017-10-25] MEDS ORDERED: DLDI.5 IV (16:17)
[2017-10-25] MEDS ORDERED: LORAZEPAM 2 MG/ML 1 ML VIAL IV PRN (16:45)
[2017-10-25] MEDS: HYDROmorphone INJ 0.5 MG/0.5 ML SYR IV PRN ×2 (16:56→19:23)
[2017-10-25] MEDS: ATROPINE SULFATE 1% OP SOLN 5 ML BTL PO PRN (19:24)
[2017-10-25] MEDS: LORAZEPAM INJ 0.5 MG in SYRINGE 0.75 ML IV PRN (20:43)
[2017-10-25] MEDS ORDERED: NURSING VERBAL MED ORDER ONE (22:45)
[2017-10-26] MEDS: HYDROmorphone INJ 0.5 MG/0.5 ML SYR IV PRN ×9 (00:38→19:32)
[2017-10-26] MEDS: ATROPINE SULFATE 1% OP SOLN 5 ML BTL PO PRN ×4 (00:39→19:07)
[2017-10-26 07:38] VITALS: BP 131/65; PULSE 106; TEMP 36.5; O2SAT 86
[2017-10-26 07:40] VITALS: O2SAT 94
--- NOTE | 2017-10-26 11:28 | Hospitalist Progress Note ---
Hospitalist Progress Note Date of Service Oct 26, 2017. (Viviane Duffy ., ANIBAL-C) Subjective Pt evaluation today including: conversation w/ patient, physical exam, chart review, review of inpatient medication list Unable to obtain ROS from patient due to mental status/condition. Per nursing, patient does not want any comfort feedings, only oral care performed this morning. Pt sleeping now, appears comfortable. Additional Comments: Unable to obtain reliable ROS. (Viviane Duffy ., BIENVENIDOC) Objective Vital Signs Date Time Temp Pulse Resp B/P (MAP) Pulse Ox O2 Delivery O2 Flow Rate FiO2 10/26/17 10:49 Nasal Cannula 2.0 10/26/17 07:40 94 Nasal Cannula 2.0 Humidified Oxygen 10/26/17 07:38 36.5 106 15 131/65 (87) 86 Room Air 10/26/17 00:15 Room Air (Viviane Duffy, ANIBAL-C) Physical Exam Notes: General appearance: +Appears chronically ill. Well-developed, well-nourished, no apparent distress Head: Normocephalic, atraumatic Eyes: Normal inspection, PERRL, EOMI ENT: Normal ENT inspection, hearing grossly normal, pharynx normal Neck: Supple, no JVD, trachea midline Respiratory/Chest: +Wheezing, rhonchi, rattles, decreased breath sounds. No respiratory distress Cardiovascular: +Irregularly irregular. No gallop, no murmur Abdomen/GI: Normal bowel sounds, non-tender, soft Extremities/Musculoskeletal: RLE wrapped in gauze. No calf tenderness, no pedal edema Neurological/Psych: +Lethargic, unable to assess mood/orientation. Skin: Normal color, warm/dry, no rash (Viviane Duffy ., ANIBAL-C) Assessment and Plan 87 y/o F Hx chronic AF, HTN, PAD, dementia, cerebral aneurysms who presents for inpatient hospice with RLE nonhealing wound. Inpatient hospice -Admit to med/surg for comfort measures only -Continue Dilaudid 0.5 mg IV q1h prn pain/dyspnea, Ativan 0.5 mg IV q2h prn agitation/anxiety, Atropine drops q4h prn excessive secretions -Comfort feedings as tolerated RLE necrotic, nonhealing wound, MRSA positive -Vancomycin and wound vanc d/c'd -Family did not want amputation, placed on LIBRARIAN ASSISTANT Severe protein-calorie malnutrition -Can eat as tolerated Vaginal Ria -Monistat d/c'd, LIBRARIAN ASSISTANT AF--rate controlled -Eliquis and metoprolol d/c'd Code Status -Level V, DO NOT RESUSCITATE (Viviane Duffy ., JENNY) Reviewed: Pt Seen/Exam by Me (Inez Amado MD) History Physician Combination Building Inspector Supervision Note: I interviewed and examined the patient. Discussed with ANIBAL Duffy and agree with findings and plan as documented in the note. Any exceptions or clarifications are listed here: Pt resting comfortably. Family not present when I saw her. Vitals reviewed Sleeping and startled slightly when touched but no verbal response, did not open eyes irreg irreg coarse BS throughout, upper airway rattling sounds abd soft NT Ext mottled on right, cap refill brisk on left toes 87 yo female with RLE deep wound with necrosis and infection, not amenable to debridement, wound vac and IV abx, needed amputation but family opted for no surgical treatment and LIBRARIAN ASSISTANT. -continue IV dilaudid prn, ativan prn, atropine for secretions -expect her to pass away in the next 1-2 days Documented By: Inez Amado (Inez Amado MD)
[2017-10-26] MEDS ORDERED: SCOPOLAMINE 1.5 MG TDSY TD SCH (15:00)
[2017-10-26] MEDS: LORAZEPAM INJ 0.5 MG in SYRINGE 0.75 ML IV PRN (15:36)
[2017-10-26] MEDS: CHECK SCOPOLAMINE PATCH PLACEMENT SCH (15:50)
[2017-10-27] MEDS: CHECK SCOPOLAMINE PATCH PLACEMENT SCH (00:01)
[2017-10-27] MEDS: ATROPINE SULFATE 1% OP SOLN 5 ML BTL PO PRN (00:02)
[2017-10-27] MEDS: HYDROmorphone INJ 0.5 MG/0.5 ML SYR IV PRN (00:09)
--- NOTE | 2017-10-27 08:26 | Death Summary ---
Summary of Admission Date Oct 25, 2017 at 16:34 (Viviane Duffy PA-C) Date & Time of Oct 27, 2017. 0547 (Viviane Duffy PA-C) Cause of Sequelae from necrotic, non-healing RLE wound and peripheral vascular disease; severe protein calorie malnutrition (Viviane Duffy PA-C) Secondary Diagnoses Chronic AF, HTN, PAD, dementia, cerebral aneurysms, vaginal hawk (Viviane Duffy PA-C) Hospital Course 87 y/o female with a history of chronic AF, HTN, PAD, dementia, cerebral aneurysms who originally presented from the vascular surgeon's office due to a nonhealing RLE wound. The wound had been present x 2 months with acute worsening in last week and necrosis. Failed outpt Bactrim. Increasing confusion on top of overall decline in memory/function over last year. RLE necrotic, nonhealing wound, MRSA positive -Pt had been taken to OR every other day for wound irrigation, wound vac changes due to severe pain -Per vascular, no more wound vac as after 2 weeks no improvement -Palliative care consult, discuss if want amputation, TPN or not. Family decided not to have amputation and instead pursue comfort measures -Vancomycin d/c'd. Infectious disease had been following -Discharged and readmitted for inpatient hospice 10/25 Inpatient hospice -Admit to med/surg for comfort measures only -Continue Dilaudid 0.5 mg IV q1h prn pain/dyspnea, Ativan 0.5 mg IV q2h prn agitation/anxiety, Atropine drops q4h prn excessive secretions -Comfort feedings as tolerated Severe protein-calorie malnutrition -Can eat as tolerated Vaginal Hawk -Monistat d/c'd, DURABILITY ENGINEER AF--rate controlled -Eliquis and metoprolol d/c'd Code Status -Level V, DO NOT RESUSCITATE Patient ceased to breathe, no auscultated heart sounds or palpable pulses at 05: 47 on 10/27. Pt pronounced at 05:55. Family was at bedside. (Viviane Duffy PA-C) Copy To Meena Salcido D.Valdo Reviewed: Pt Seen/Exam by Me (Inez Amado MD) History Physician Senior Payroll Specialist Supervision Note: Discussed with ANIBAL Duffy and agree with findings and plan as documented in the note. Any exceptions or clarifications are listed here: None. Pt this morning after prolonged hospitalization for necrotic leg wound, non-healing. Documented By: Inez Amado (Inez Amado MD)
== END 2017-10-27 05:55 | disposition expired | DRG 604 ==
LOC: C.MSW 16:34
PROVIDERS: ADMIT Family Medicine; ATTEND Family Medicine
DX: S81.801A Unspecified open wound, right lower leg, initial encounter (principal); E43 Unspecified severe protein-calorie malnutrition; I96 Gangrene, not elsewhere classified; B95.62 Methicillin resistant Staphylococcus aureus infection as the cause of diseases classified elsewhere; I48.2 Chronic atrial fibrillation; F03.90 Unspecified dementia, unspecified severity, without behavioral disturbance, psychotic disturbance, mood disturbance, and anxiety; I10 Essential (primary) hypertension; Z51.5 Encounter for palliative care; Z66 Do not resuscitate; X58.XXXA Exposure to other specified factors, initial encounter